=== PATIENT | male | born 2000 | race Caucasian/White ===

== ENCOUNTER 2020-04-27 18:58 | Outpatient (REF) | payer OTHER, SELFPAY ==
[2020-04-27 23:36] LABS: ALT 29 U/L (16-63); AST 18 U/L (15-37); Albumin 5.3 g/dL (3.4-5.0); Anion Gap 11.2 mmol/L (3-11); BUN 9 mg/dL (7-18); Bilirubin, Total 0.4 mg/dL (0.2-1.0); CO2 26.8 mmol/L (21.0-32.0); CREATININE 0.72 mg/dL (0.70-1.30); Calcium 10.2 mg/dL (8.5-10.1); Calculated LDL 101 mg/dL (<100); Chloride 100 mmol/L (98-107); Cholesterol 172 mg/dL (<200); Glucose 86 mg/dL (74-106); HDL Cholesterol 54 mg/dL (40-60); Sodium 138 mmol/L (136-145); Triglyceride 87 mg/dL (<150)
[2020-04-28 00:06] LABS: Alkaline Phosphatase 78 U/L (46-116)
[2020-04-30 09:53] LABS: HBs Antibody, Quant 881.1 mIU/mL (See Note); Hepatitis B Surface Ab Positive (See Note)
[2020-04-30 10:35] LABS: HIV-1/2 Ag & Ab Screen Negative (Negative)
[2020-04-30 11:29] LABS: Hepatitis A Antibody IgM Negative (Negative); Hepatitis B Core Antibody Negative (Negative); Hepatitis B surface Ag Negative (Negative); Hepatitis C Ab w Rflx HCV PCR Negative (Negative)
[2020-04-30 14:07] LABS: Chlamydia Result Negative (Negative); GC Result Negative (Negative)
== END 2020-04-27 19:18 ==
LOC: NCHCN 18:58
PROVIDERS: PCP Nurse Practitioner Family; Visit Provider Nurse Practitioner Family
DX: R53.83 Other fatigue (principal); Z11.3 Encounter for screening for infections with a predominantly sexual mode of transmission; Z11.59 Encounter for screening for other viral diseases; Z11.4 Encounter for screening for human immunodeficiency virus [HIV]
CPT/HCPCS: 80053; 80061; 86704; 86706; 86709; 86803; 87340; 87389; 87491; 87591

== ENCOUNTER 2020-06-05 01:30 | Outpatient (CLI) | payer OTHER, SELFPAY ==
--- NOTE | 2020-06-05 | DI.US_ITS ---
APPROVED REPORT EXAM: Comprehensive 2D, Doppler, and color-flow Echocardiogram Patient Location: Out-Patient Tooth Cutter Contact Wheel: Deisy Michaels RDCS (AE) Indications: Family H/O Early IA Other Information Study Quality: Adequate Conclusion Left Ventricle : The left ventricle is normal size. The left ventricular systolic function is normal. The left ventricular ejection fraction is within the normal range. There is normal left ventricular wall thickness. There is normal LV segmental wall motion. The left ventricular diastolic function is normal. LVEF is 61%. Right Ventricle : The right ventricle is normal size. The right ventricular systolic function is norm al. The RVSP is 18.9 mmHg. Atria : The left atrium size is normal. The right atrium size is normal. Valves: There are no hemodynamically significant valvular lesions. Great Vessels : The aortic root is normal in size. The ascending aorta is normal in size. Aortic arch is normal in caliber. IVC is normal in size and collapses >50% with inspiration. Please see remainder of study for further details. Wall motion Left Ventricle The left ventricle is normal size. The left ventricular systolic function is normal. The left ventric ular ejection fraction is within the normal range. There is normal left ventricular wall thickness. T here is normal LV segmental wall motion. The left ventricular diastolic function is normal. There is no ventricular septal defect visualized. LVEF is 61%. Right Ventricle The right ventricle is normal size. The right ventricular systolic function is normal. The RVSP is 18 .9 mmHg. Atria The left atrium size is normal. The right atrium size is normal. The interatrial septum is intact wit h no evidence for an atrial septal defect. Aortic Valve The aortic valve is normal in structure. Aortic valve is trileaflet. There is no aortic valvular sten osis. No aortic regurgitation is present. Mitral Valve The mitral valve is normal in structure. No evidence of mitral valve stenosis. Trace mitral regurgita tion. Tricuspid Valve The tricuspid valve is normal in structure. There is no tricuspid valve stenosis. Trace tricuspid reg urgitation. Pulmonic Valve The pulmonary valve is normal in structure. There is no pulmonic valvular stenosis. There is no pulmo rina valvular regurgitation. Great Vessels The aortic root is normal in size. The ascending aorta is normal in size. Aortic arch is normal in ca liber. IVC is normal in size and collapses >50% with inspiration. Pericardium There is no pericardial effusion. 2D Dimensions IVSD d PLAX 0.73 cm M: 0.6-1.2 LV Vol A2C d MOD 128.0 mL LVPW d PLAX 0.79 cm M: 0.6 - 1.2 LV Vol A4C d MOD 105.5 mL LVID d PLAX 4.48 cm M: 4.2 - 5.8 LA vol/ BSA A2C s A-L 8.0 mL/m2 LVDs 2.85 cm M: 2.5 - 4.0 LA vol/ BSA A4C s A-L 15.1 mL/m2 Ao Root d 2.49 cm M: 3.1 - 3.7 LA Vol/ BSA Biplane s A-L 12.1 mL/m2 RA Area A4C 14.52 cm2 LA Area A4C s MOD 11.93 cm2 RA Vol/ BSA A4C s A-L 22.4 mL/m2 LA Area A2C s MOD 7.89 cm2 Ao Asc Diam d 2.85 cm M: 2.6 - 3.4 LV EF A4C MOD 61.4 % LV EF Teichholz 65.0 % LV EF A2C MOD 61.2 % LVEF (Anaya's) 60.18 % M: 52 - 72 LV EF Biplane MOD 60.2 % LV Volume 93.85 mL M: 62 - 150 SV 72.64 mL LV Volume Index 52.13 mL/m2 M: 34 - 74 SV Index 40.31 mL/m2 LV Vol Biplane MOD 120.7 mL FS 35.40 % M-Mode TAPSE 2.26 cm (M/F) >1.7 LV Diastology MV E' medial 0.109 (>0.07 m/s) E/A Ratio 1.6 LV E/e MED 6.00 (<14) MV E Vmax 0.65 (0.4-1.3 m/s) MV E' lateral 0.193 (>0.1 m/s) MV A Vmax 0.40 (0.4-1.3 m/s) LV E/e LAT 3.35 (<14) MV E/A Ratio 1.47 MV E/E' medial 6.01 MV E/E' lateral 3.38 Aortic Valve LVOT Area 3.63 cm2 AoV Area Vmax 3.62 cm2 LVOT Vmax 0.89 m/s AoV Area/ BSA (Vmax) 2.01 cm2/m2 LVOT Mean Chris. 0.54 m/s ENMANUEL Mean Chris. 2.87 cm2 LVOT Peak Grad 3.1 mmHg ENMANUEL Mean Chris. Index 1.60 cm2/m2 LVOT Mean Grad 1.4 mmHg LVOT VTI 0.182 m LVOT Diam s 2.10 cm AoV Vmax 0.89 m/s Velocity Ratio 1.00 AoV Mean Chris. 0.68 m/s AoV Peak Grad 3.1 mmHg LVOT SV 66.03 mL AoV Mean Grad 2.0 mmHg AoV VTI 0.188 m AoV Area VTI 3.52 cm2 AoV Area/ BSA (VTI) 1.95 cm/m2 Mitral Valve MV DT 144 (160-240 msec) MV PHT 42 msec MV Area PHT 5.28 cm2 Pulmonary Valve PV Vmax 0.80 (0.5-1.5 m/s) RVOT Peak Gr. 1.50 mmHg PV Peak Grad 2.6 mmHg RVOT Mean Gr. 0.85 mmHg PV Mean Grad 1.3 mmHg RVOT VTI 0.141 m PV VTI 0.177 m RVOT Vmax 0.61 m/s Tricuspid Valve TR Peak Grad 15.9 mmHg TR Vmax 2.00 m/s RA Pressure 3.00 mmHg RVSP (TR) 18.9 mmHg
== END 2020-06-05 01:50 ==
PROVIDERS: PCP Nurse Practitioner Family; Visit Provider Nurse Practitioner Family
DX: Z82.49 Family history of ischemic heart disease and other diseases of the circulatory system (principal)
CPT/HCPCS: 93306

== ENCOUNTER 2021-01-16 13:41 | Outpatient (REF) | payer OTHER, SELFPAY ==
[2021-01-18 15:55] LABS: Chlamydia Result Negative (Negative)
[2021-01-18 17:10] LABS: GC Result Positive (Negative)
== END 2021-01-16 13:42 | disposition home or self-care (01) ==
LOC: NCHCN 13:41
PROVIDERS: PCP Nurse Practitioner Family; Visit Provider Family Medicine
DX: Z20.2 Contact with and (suspected) exposure to infections with a predominantly sexual mode of transmission (principal)
CPT/HCPCS: 87491; 87591

== ENCOUNTER 2021-01-18 13:55 | Outpatient (REF) | payer OTHER, SELFPAY ==
[2021-01-18 16:31] LABS: HCT 48.4 % (40.0-50.0); MCH 29.9 pg (27.0-33.0); MCHC 33.1 % (32.0-36.0); MCV 90.3 fL (80-95); MPV 10.1 fL (8.0-11.0); Platelet Count 235 10^3/uL (130-400); RBC 5.36 10^6/uL (4.36-5.78); RDW 11.9 % (11.8-14.1); RDW-SD 39.2 fL; WBC 5.28 10^3/uL (4.4-10.8)
[2021-01-18 16:55] LABS: TSH (W/Ref FT4) 0.75 uIU/mL (0.36-3.74)
[2021-01-21 10:25] LABS: Hepatitis B Surface Ag Negative (Negative)
[2021-01-21 11:00] LABS: Hep B Core Antibody Negative (Negative)
[2021-01-21 11:05] LABS: HIV-1/2 Ag & Ab Screen Negative (Negative)
[2021-01-21 11:13] LABS: Hepatitis C Ab w Rflx HCV PCR Negative (Negative)
[2021-01-21 11:55] LABS: Syphilis Serology (RPR) Negative (Negative)
== END 2021-01-18 13:56 | disposition home or self-care (01) ==
LOC: NCHCN 13:55
PROVIDERS: PCP Nurse Practitioner Family; Visit Provider Family Medicine
DX: R53.83 Other fatigue (principal); Z20.2 Contact with and (suspected) exposure to infections with a predominantly sexual mode of transmission; Z11.59 Encounter for screening for other viral diseases; Z11.4 Encounter for screening for human immunodeficiency virus [HIV]
CPT/HCPCS: 85027; 86704; 86803; 87340; 87389; 84443; 86592

== ENCOUNTER 2021-04-12 15:03 | Outpatient (REF) | payer OTHER, SELFPAY ==
[2021-04-15 15:25] LABS: Chlamydia Result Negative (Negative)
[2021-04-15 15:45] LABS: GC Result Positive (Negative)
== END 2021-04-12 15:04 | disposition home or self-care (01) ==
LOC: NCHCN 15:03
PROVIDERS: PCP Nurse Practitioner Family; Visit Provider Family Medicine
DX: N34.2 Other urethritis (principal); Z72.52 High risk homosexual behavior; Z86.19 Personal history of other infectious and parasitic diseases
CPT/HCPCS: 87491; 87591

== ENCOUNTER 2021-05-10 13:28 | Outpatient (CLI) | payer OTHER, SELFPAY ==
[2021-05-10 14:33] LABS: CREATININE 0.8 mg/dL (0.70-1.30)
[2021-05-13 11:19] LABS: HIV-1/2 Ag & Ab Screen Negative (Negative)
[2021-05-14 11:38] LABS: Syphilis Serology (RPR) Negative (Negative)
== END 2021-05-10 13:29 | disposition home or self-care (01) ==
LOC: LBO 13:29
PROVIDERS: PCP Nurse Practitioner Family; Visit Provider Family Medicine
DX: Z20.2 Contact with and (suspected) exposure to infections with a predominantly sexual mode of transmission (principal); Z11.4 Encounter for screening for human immunodeficiency virus [HIV]; Z51.81 Encounter for therapeutic drug level monitoring
CPT/HCPCS: 36415; 87389; 82565; 86592

== ENCOUNTER 2021-05-10 19:27 | Outpatient (REF) | payer OTHER, SELFPAY ==
[2021-05-13 14:41] LABS: Chlamydia Result Negative (Negative); GC Result Negative (Negative)
== END 2021-05-10 19:28 | disposition home or self-care (01) ==
LOC: LBN 19:27
PROVIDERS: PCP Nurse Practitioner Family; Visit Provider Family Medicine
DX: Z20.2 Contact with and (suspected) exposure to infections with a predominantly sexual mode of transmission (principal)
CPT/HCPCS: 87491; 87591

== ENCOUNTER 2021-08-23 15:16 | Outpatient (REF) | payer OTHER, SELFPAY ==
[2021-08-26 10:31] LABS: Syphilis Serology (RPR) Negative (Negative)
[2021-08-26 10:32] LABS: HIV-1/2 Ag & Ab Screen Negative (Negative)
[2021-08-26 15:07] LABS: Chlamydia Result Negative (Negative); GC Result Negative (Negative)
== END 2021-08-23 15:17 | disposition home or self-care (01) ==
LOC: NCHCN 15:16
PROVIDERS: PCP Nurse Practitioner Family; Visit Provider Family Medicine
DX: Z72.52 High risk homosexual behavior (principal); Z11.4 Encounter for screening for human immunodeficiency virus [HIV]; Z11.3 Encounter for screening for infections with a predominantly sexual mode of transmission
CPT/HCPCS: 87389; 87491; 87591; 86592

== ENCOUNTER 2021-10-25 18:48 | Outpatient (REF) | payer OTHER, SELFPAY ==
[2021-10-28 11:17] LABS: Syphilis Serology (RPR) Negative (Negative)
[2021-10-28 11:51] LABS: HIV-1/2 Ag & Ab Screen Negative (Negative)
[2021-10-28 15:33] LABS: Chlamydia Result Negative (Negative); GC Result Negative (Negative)
== END 2021-10-25 18:49 | disposition home or self-care (01) ==
LOC: NCHCN 18:48
PROVIDERS: PCP Nurse Practitioner Family; Visit Provider Family Medicine
DX: Z20.2 Contact with and (suspected) exposure to infections with a predominantly sexual mode of transmission (principal); Z72.52 High risk homosexual behavior
CPT/HCPCS: 87389; 87491; 87591; 86592

== ENCOUNTER 2022-01-21 18:24 | Outpatient (REF) | payer OTHER, SELFPAY ==
[2022-01-23 09:46] LABS: Hepatitis C Ab w Rflx HCV PCR Negative (Negative)
[2022-01-23 10:11] LABS: HIV-1/2 Ag & Ab Screen Negative (Negative)
[2022-01-23 11:36] LABS: Syphilis Serology (RPR) Negative (Negative)
== END 2022-01-21 18:25 | disposition home or self-care (01) ==
LOC: NCHCN 18:24
PROVIDERS: PCP Nurse Practitioner Family; Visit Provider Family Medicine
DX: Z72.52 High risk homosexual behavior (principal); Z11.4 Encounter for screening for human immunodeficiency virus [HIV]; Z11.59 Encounter for screening for other viral diseases
CPT/HCPCS: 86803; 87389; 86592

== ENCOUNTER 2022-04-04 14:50 | Emergency (ER) | payer OTHER, SELFPAY ==
[2022-04-04 15:07] VITALS: BP 164/87; PULSE 103; RESP 14; TEMP 36.9; O2SAT 99
--- NOTE | 2022-04-04 15:24 | ED.GENADUL_ITS ---
Discharge Plan Disposition Patient Disposition: HOME Condition: Good Discharge Details Clinical Impression: Contusion of head, Abrasion head, Concussion Primary Care Provider: Patrick Hernandez ED Provider: Lisa Mauricio Home Meds and New Rx's Prescriptions: Continued emtricitabine-tenofovir (TDF) 200-300 mg tablet 1 tab PO DAILY Label Comments: TAKE ONE TABLET BY MOUTH EVERY DAY Discharge Instructions Instructions: Concussion (ED), Head Injury (ED) Additional Instructions: Your exam is reassuring here today. Has discussed, no evidence of neurologic deficit to suggest bleeding in your head or skull fracture. Your exam is much more concerning for contusion with a small abrasion to discuss. You may also have suffered a mild concussion. Please encourage hydration. You may use Tylenol and/or ibuprofen as needed for discomfort. Please encourage rest and avoid significant brain stimulation such as screens, exercise, until symptoms have improved. Please follow-up with primary care in the next 1 to 2 weeks for reevaluation. If you develop any new or worsening symptoms please seek care urgently once again. Referrals: Patrick Hernandez, [employer] [Primary Care Provider] - Discharge Data Discharge Date/Time-TO BE ENTERED AT DEPARTURE: 04/04/22 17:19 Medical Decision Making Patient is a pleasant 21-year-old male, accompanied by his mother, with chief complaint of head injury. He reports that 2 hours ago he was closing a hatchback and forgot that there was a slight crack on the back and accidentally struck himself in the head. Noted a linear area of swelling to the left side of the forehead. Headache is mild currently. Denies any visual change, no nausea or vomiting, no weakness, no sensory deficits. Denies any neck pain or trauma elsewhere since the time of the injury. He was initially endorsing some confusion but this seems to have subsided. On exam, patient appears nontoxic. He has a linear area of ecchymotic/abrasion to left side of forehead. No evidence of skull fracture. Neurologic exam is intact. No c-spine tenderness, full ROM. Mechanism was not signficant. He has no evidence of ICH or skull fx. Advised contusion. With his report of mild, limited confusion, may have mild concussion. We discussed imaging but I do not see indication for this currently. He lives with friends, mom will bring him home. He is able to return if he develops new/worsening symptoms. We discussed concussion recommendations, return precauti ons. All of his quesions and concerns were addressed, they are in agreement with thisplan. HPI General Date/Time Provider Initiated Documentation: 04/04/22 15:24 . Limitations to Documentation: no limitations . Information obtained by: patient, family (mom) and RN notes reviewed . History of Present Illness 21 year old M presents to the emergency department with the chief complaint of contusion to scalp/forehead, described as mild, with intensity rated at 1. Quality is described as aching, and is localized to the head. Patient reports no radiation. Patient started experiencing this hour(s) and it has been constant (pain has improved). No relieving factors improve symptom(s), No exacerbating factors reported . Patient notes no other symptoms.. Patient did receive the following treatments prior to arrival, none Related Data Home Medications Medication Instructions Recorded Confirmed emtricitabine 200 mg-tenofovir 1 tab PO DAILY 04/04/22 04/04/22 disoproxil fumarate 300 mg tablet Allergies Allergy/AdvReac Type Severity Reaction Status Date / Time amoxicillin Allergy Mild Skin Rash Unverified 04/04/22 15:10 General Stated Complaint: HeadInjury WAN: 4 Review of Systems Constitutional Constitutional: Reports as per HPI, Reports fatigue and Denies weakness Eyes Eyes: Reports as per HPI, Denies blurry vision and Denies change in vision ENT Ears, Nose, Mouth, and Throat: Denies vertigo and Denies neck pain Cardiovascular Cardiovascular: Reports as per HPI, Denies chest pain, Denies lightheadedness, Denies radiating jaw, neck or arm pain and Denies dyspnea Respiratory Respiratory: Reports as per HPI, Denies chest congestion, Denies cough and Denies dyspnea Gastrointestinal Gastrointestinal: Reports as per HPI, Denies abdominal pain, Denies change in bowel habits, Denies nausea and Denies vomiting Musculoskeletal Musculoskeletal: Reports as per HPI, Denies back pain, Denies myalgias, Denies muscle cramps, Denies neck pain and Denies numbness Integumentary/Breasts Skin/Breast: Reports as per HPI and Denies rash Neurologic Neurologic: Reports as per HPI, Denies abnormal movements, Denies abnormal speech, Denies behavioral changes, Denies confusion, Denies vertigo, Denies localized weakness, Denies numbness, Denies sensory deficit and Denies weakness Psychiatric Psychiatric: Denies behavioral changes and Denies confusion Endocrine Endocrine: Reports fatigue PFSH All Active Problems (Updated 04/04/22 @ 17:02 by EDIL Mccarty) Contusion of head (Acute) Abrasion head (Acute) Concussion (Acute) Anxiety (Acute 04/27/13) Medical History (Updated 04/04/22 @ 17:02 by EDIL Mccarty) Eczema Smoker in home dad, outside Surgical History (Updated 06/23/18 @ 14:33 by [facility]) Appendectomy Arthroplasty of knee Circumcision Family History Mother No problems noted. Father Substance abuse ETOH grandparent Essential hypertension Heart disease Hyperlipidemia Neoplasm Other Bleeding disorder Social History Smoking/Tobacco Use Status: Current every day Tobacco Type: cigarettes Smoking risk assessment performed?: Yes Alcohol Intake: current Alcohol Intake frequency: a few times a week Alcohol type: beer, wine and hard liquor Drug use: Occasionally Substance use type: marijuana Do you feel safe at home: Yes Do you feel safe in your relationship?: Yes Exam Const General: cooperative, healthy appearing, comfortable, no acute distress, well developed and well groomed Nutritional Appearance: average body habitus and well nourished Orientation: alert, awake and oriented x3 [facility] Head: normal to inspection, no palpable skull fracture, normocephalic, no Morales's sign, no lacerations, no occipital foramen tenderness, no palpable skull fracture, no raccoon eyes and No periorbital ecchymosis Head images: 1. superficial area of ecchymosis/abrasion. No significant swelling, no full break in skin. No palpable skull fracture Ears: hearing grossly normal bilaterally, external ears normal and TM's normal bilaterally General nose exam: external nose normal Mouth: oral mucosae normal and moist mucous membranes Throat: posterior oropharynx normal Eyes General: appearance normal, both eyes and all related structures Alignment and Position: alignment normal Periorbital: periorbital findings normal Eyelids: eyelids normal Sclera: sclerae normal Cornea: corneas normal Pupils: PERRL EOM: EOM intact bilaterally Neck Neck: normal visual inspection and full ROM Resp Effort & Inspection: normal respiratory effort, able to speak in complete sentences and no respiratory distress Auscultation: clear to auscultation bilaterally, no rales, no rhonchi and no wheezes Cardio Rate: regular rate Rhythm: regular rhythm Heart Sounds: S1 normal and S2 normal GI Inspection: normal to inspection and non-distended Palpation: soft, no hepatosplenomegaly, not firm, no guarding, not rigid and nontender Percussion: normal to percussion Auscultation: normal bowel sounds Back/Spine/Pelvis Cervical Spine: normal cervical lordosis, cervical ROM normal, No cervical muscular tenderness, No pain with cervical ROM, No cervical spasm, No cervical spinal tenderness and No step off deformity Skin General skin exam: ecchymosis Neuro General: patient alert, patient awake and patient oriented x3 Cranial Nerves: CN's II-XI intact bilaterally Cognition: normal cognition Speech: speech normal Gait: normal gait Motor: muscle tone normal throughout, strength 5/5 throughout, no pronator drift, no movement abnormalities noted and no fasciculations Sensory Exam: no sensory deficits noted Coordination: fsoosf-pr-[id number] test normal, ydhq-[id number] test normal, Romberg test normal, tandem gait normal, Does not sway with eyes open and rapid alternating movement UE normal Extrem General: normal to inspection, capillary refill normal, no pedal edema and no calf tenderness Psych Appearance: grossly normal and well kempt Mental Status: mental status grossly normal Speech and Movement: speech and movement normal Course Vital Signs Vital signs: Vital Signs Temperature 36.9 C 04/04/22 15:07 Pulse 103 H 04/04/22 15:07 Respiratory Rate 14 04/04/22 15:07 Blood Pressure 164/87 H 04/04/22 15:07 Pulse Oximetry 99 04/04/22 15:07 Temperature 36.9 C 04/04/22 15:07 Temperature Source Temporal Artery Scan 04/04/22 15:07 Pulse 103 H 04/04/22 15:07 Respiratory Rate 14 04/04/22 15:07 Respiratory Effort Non-Labored 04/04/22 15:11 Respiratory Depth Normal 04/04/22 15:11 Respiratory Pattern Normal 04/04/22 15:11 Blood Pressure 164/87 H 04/04/22 15:07 Blood Pressure Position Sitting 04/04/22 15:07 Pulse Oximetry 99 04/04/22 15:07 Oxygen Delivery Method Room Air 04/04/22 15:07 Oxygen Flow Rate 0 04/04/22 15:07 Pain Level 0 04/04/22 15:07 PAWSS Have you Been Recently Intoxicated or Drunk Within the Last 30 days?: Yes Have you Ever Experienced Previous Episodes of Alcohol Withdrawal?: No Have you ever Experienced Withdrawal Seizures?: No Have you ever Experienced Delirium Tremens(DT)s?: No Have you ever undergone Alcohol Rehabilitation Treatment (i.e, inpt ot outpatient treatment programs)?: No Have you ever Experienced Blackouts?: No Have you ever Combined Alcohol with other Downers within the last 90 days?: No Have you ever Combined Alcohol with any other Substance of Abuse during the last 90 days?: No Positive Blood Alcohol level on Presentation? [PCS.BAL]: No Evidence of Increased Autonomic Activity (i.e. HR>120, tremor, sweating, agitation, nausea)?: No Result: 1
--- NOTE | 2022-04-04 16:26 | PDOC.ERCMPRO ---
- If Service Date Differs Date of service: 04/04/22 Time of Service: 16:26 Care Management Progress Note SBIRT Screen: positive for alcohol (AUDIT 24), drugs (DAST 5) includes cannabis LSD Aderall and Psylocibin, nicotine, Anxiety (ISABEL 15) and depression (PHQ-9: 10). Pt reports he has been in therapy until January, when his therapist left, and is interested in getting back into therapy. Pt was encouraged to seek tx and supplied with local contact numbers for counseling services. Pt does not report and SI and agrees to follow up call with SBIRT next week for status check.
== END 2022-04-04 17:19 | disposition home or self-care (01) ==
PROVIDERS: Emergency Provider Physician Assistant; PCP Nurse Practitioner Family
DX: S00.93XA Contusion of unspecified part of head, initial encounter (principal); S06.0X0A Concussion without loss of consciousness, initial encounter; F17.210 Nicotine dependence, cigarettes, uncomplicated; W22.8XXA Striking against or struck by other objects, initial encounter
CPT/HCPCS: 99281; 99282

== ENCOUNTER 2023-02-09 15:12 | Outpatient (REF) | payer OTHER, SELFPAY ==
[2023-02-09 17:01] LABS: Bilirubin Negative (Negative); Blood Negative (Negative); Clarity Clear (Clear); Glucose Negative (Negative); Ketones Negative (Negative); Leukocyte Esterase Negative (Negative); Nitrite Negative (Negative); Specific Gravity 1.015 (1.005-1.025); Urobilinogen 0.2 mg/dL (Up to 0.2); pH 8.5 (5-8)
[2023-02-11 10:09] LABS: Hepatitis C Ab w Rflx HCV PCR Negative (Negative)
[2023-02-11 11:25] LABS: Syphilis Serology (RPR) Negative (Negative)
[2023-02-11 12:57] LABS: HIV-1/2 Ag & Ab Screen Reactive (Negative)
[2023-02-11 15:36] LABS: GC Result Negative (Negative)
[2023-02-11 16:02] LABS: Chlamydia Result Positive (Negative)
[2023-02-13 09:51] LABS: HIV 1 Ab Diff Positive (Negative); HIV 1 Band(s) See Comments
[2023-02-13 09:52] LABS: HIV 2 Ab Diff Negative (Negative)
== END 2023-02-09 15:13 | disposition home or self-care (01) ==
LOC: NCHCN 15:12
PROVIDERS: PCP Family Medicine; Visit Provider Family Medicine
DX: Z20.2 Contact with and (suspected) exposure to infections with a predominantly sexual mode of transmission (principal); Z72.52 High risk homosexual behavior; Z11.4 Encounter for screening for human immunodeficiency virus [HIV]; Z11.59 Encounter for screening for other viral diseases; R30.0 Dysuria
CPT/HCPCS: 86701; 86702; 86803; 87389; 87491; 87591; 81003; 86592

== ENCOUNTER 2023-02-16 13:50 | Outpatient (CLI) | payer OTHER, SELFPAY ==
[2023-02-16 12:43] LABS: Abs Immature Grans 0.01 10^3/uL (0.0-0.06); Absolute Basophil Count 0.04 10^3/uL (0.0-0.2); Absolute Eosinophil Count 0.05 10^3/uL (0.0-0.7); Absolute Lymphocyte Count 1.48 10^3/uL (1.2-3.4); Absolute Monocyte Count 0.29 10^3/uL (0.1-0.8); Absolute Neutrophil Count 2.88 10^3/uL (1.2-6.7); Basophils % 0.8; Eosinophils % 1.1; HCT 47.3 % (40.0-50.0); HGB 16.5 g/dL (13.5-17.5); Immature Grans % 0.2; Lymphocytes % 31.2; MCHC 34.9 % (32.0-36.0); MCV 89 fL (80-95); MPV 9.3 fL (8.0-11.0); Monocytes % 6.1; Neutrophils % 60.6; Platelet Count 214 10^3/uL (130-400); RBC 5.32 10^6/uL (4.36-5.78); RDW 12.4 % (11.8-14.1); RDW-SD 40.6 fL; WBC 4.75 10^3/uL (4.4-10.8)
[2023-02-16 13:25] LABS: ALT 20 U/L (16-63); AST 15 U/L (15-37); Albumin 4.8 g/dL (3.4-5.0); Alkaline Phosphatase 61 U/L (46-116); Anion Gap 7.2 mmol/L (3-11); BUN 7 mg/dL (7-18); Bilirubin, Total 0.7 mg/dL (0.2-1.0); CO2 29.8 mmol/L (21.0-32.0); CREATININE 0.9 mg/dL (0.70-1.30); Calcium 9.6 mg/dL (8.5-10.1); Chloride 101 mmol/L (98-107); Estimated GFR 123.84 (mL/min/1.73m2); Glucose 97 mg/dL (74-106); Potassium 3.7 mmol/L (3.5-5.1); Sodium 138 mmol/L (136-145); Total Protein 8.5 g/dL (6.4-8.2)
[2023-02-17 09:51] LABS: HBs Antibody, Quant >1000.0 mIU/mL (See Note); Hepatitis B Surface Ab Positive (See Note)
[2023-02-17 10:06] LABS: Hepatitis B Surface Ag Negative (Negative)
[2023-02-17 12:05] LABS: Hep A Total Ab w Rflx IgM Positive (Negative)
[2023-02-17 13:07] LABS: Hep A Antibody IgM Negative (Negative)
[2023-02-17 16:32] LABS: 4/8 Ratio 1.27 (>=0.90); Absolute CD3 1282 Cells/uL (840-2669); Absolute CD8 544 Cells/uL (154-1097); CD3 78 % (56-84); CD4 42 % (31-64); CD8 33 % (9-39)
[2023-02-19 12:23] LABS: HIV 1 RNA Qualitative Detected copies/mL (Undetected); HIV 1 RNA Quantitative 216 copies/mL (Undetected)
[2023-02-23 10:27] LABS: Hep B Core Antibody Negative (Negative)
== END 2023-02-16 13:51 | disposition home or self-care (01) ==
LOC: LBO 13:51
PROVIDERS: PCP Family Medicine; Visit Provider Family Medicine
DX: B20 Human immunodeficiency virus [HIV] disease (principal)
CPT/HCPCS: 36415; 80053; 86704; 86706; 86709; 87340; 87536; 85025; 86359; 86360

== ENCOUNTER 2023-05-08 14:05 | Outpatient (REF) | payer OTHER, SELFPAY ==
[2023-05-11 10:39] LABS: Syphilis Serology (RPR) Negative (Negative)
== END 2023-05-08 14:06 | disposition home or self-care (01) ==
LOC: NCHCN 14:05
PROVIDERS: PCP Family Medicine; Visit Provider Family Medicine
DX: Z20.2 Contact with and (suspected) exposure to infections with a predominantly sexual mode of transmission (principal); Z72.52 High risk homosexual behavior
CPT/HCPCS: 86592

== ENCOUNTER 2023-05-15 15:15 | Outpatient (REF) | payer OTHER, SELFPAY ==
[2023-05-17 13:12] LABS: Chlamydia Result Negative (Negative); GC Result Negative (Negative)
== END 2023-05-15 15:16 | disposition home or self-care (01) ==
LOC: NCHCN 15:15
PROVIDERS: PCP Family Medicine; Visit Provider Family Medicine
DX: Z20.2 Contact with and (suspected) exposure to infections with a predominantly sexual mode of transmission (principal); Z72.52 High risk homosexual behavior
CPT/HCPCS: 87491; 87591

== ENCOUNTER 2023-08-13 13:46 | Outpatient (REF) | payer BC, SELFPAY ==
[2023-08-14 14:17] LABS: Chlamydia Result Negative (Negative); GC Result Negative (Negative)
[2023-08-17 11:03] LABS: Syphilis Serology (RPR) Negative (Negative)
== END 2023-08-13 13:47 | disposition home or self-care (01) ==
LOC: NCHCN 13:46
PROVIDERS: PCP Family Medicine; Visit Provider Family Medicine
DX: B20 Human immunodeficiency virus [HIV] disease (principal)
CPT/HCPCS: 87491; 87591; 86592

== ENCOUNTER 2023-11-20 08:59 | Outpatient (REF) | payer BC, SELFPAY ==
[2023-11-23 10:43] LABS: Hepatitis C Ab w Rflx HCV PCR Negative (Negative)
[2023-11-23 11:21] LABS: Syphilis Serology (RPR) Negative (Negative)
[2023-11-23 12:58] LABS: Chlamydia Result Negative (Negative); GC Result Negative (Negative)
== END 2023-11-20 09:00 | disposition home or self-care (01) ==
LOC: NCHCN 08:59
PROVIDERS: PCP Family Medicine; Referring Provider Family Medicine; Visit Provider Family Medicine
DX: B20 Human immunodeficiency virus [HIV] disease (principal)
CPT/HCPCS: 86803; 87491; 87591; 86592

== ENCOUNTER 2024-05-23 19:43 | Outpatient (REF) | payer BC, SELFPAY ==
--- OUTSIDE RECORDS SUMMARY | 2024-05-23 19:47 | XMS_ITS | Encounter Summary ---
Author Organization [facility] Address [address] [place] [address] Care Team Providers Care Community Health Outreach Worker Name Role Phone Quynh Louie MD Primary Care Provider [phone] Reason for Visit * Reason Onset Date Comments Social Work 02/23/2023 Encounter Details Date Type Department Care Team (Late st Contact Info) Description 02/23/2023 Telephone [facility] Disease [address] [address] Denice Babcock Social Work Social History Tobacco Use Types Packs/Day Years Used Date Smoking Tobacco: Never Assessed Sex and Gender Information Value Date Recorded Sex Assigned at Not on file Gender Identity Male 02/18/2023 14:09 EDT Sexual Orientation Not on file documented as of this encounter Miscellaneous Notes * Telephone Encounter - Denice Babcock - 02/23/2023 1154 EDT Called Elo Jolley in [place] to coordinate [facility] paying for the first month of HIV medication.Provided ID#, BIN, RxPCN. Viral will not have a copay and the insurance information was removed. Advised that he will be obtaining different insurance independently for next months fill. documented in this encounter Plan of Treatment Upcoming Encounters Date Type Department Care Team (Late st Contact Info) Description 08/25/2024 13:20 EST Office Visit [facility] Infectious Disease [address] [phone] Benito Arora MD [address] [place] [phone] documented as of this encounter Visit Diagnoses Not on filedocumented in this encounter Care Teams Community Health Outreach Worker Relationship Specialty Start Date End Date Quynh Louie MD [address] [place] [phone] PCP - General 02/18/23 documented as of this encounter
--- OUTSIDE RECORDS SUMMARY | 2024-05-23 19:47 | XMS_ITS | Encounter Summary ---
Author Organization [facility] Address [address] [place] [address] Care Team Providers Care Hydro Station Supervisor Name Role Phone Quynh Louie MD Primary Care Provider [phone] Sancho Hampton Unavailable Unavailable Encounter Details Date Type Department Care Team (Late st Contact Info) Description 03/01/2024 14:45 EDT Phlebotomy Only [facility] Center 2 Phlebotomy [address] [place] [address] Ve Teacher, Acc Phlebotomy Asymptomatic HIV infection, with no history of HIV-related illness ([facility]) Social History Tobacco Use Types Packs/Day Years Used Date Smoking Tobacco: Never Assessed Sex and Gender Information Value Date Recorded Sex Assigned at Not on file Gender Identity Male 02/18/2023 14:09 EDT Sexual Orientation Not on file documented as of this encounter Plan of Treatment Upcoming Encounters Date Type Department Care Team (Late st Contact Info) Description 08/25/2024 13:20 EST Office Visit [facility] Infectious Disease - [facility] [address] [place] [address] Benito Arora MD [address] [place] [phone] documented as of this encounter Procedures Procedure Name Priority Date/Time Associated Diagnosis Comments HIV 1 RNA QUANTITATION Routine 03/01/2024 15:15 EDT Asymptomatic HIV infection, with no history of HIV-related illness ([facility]) T CELL SUBSETS Routine 03/01/2024 15:15 EDT Asymptomatic HIV infection, with no history of HIV-related illness ([facility]) COMPLETE BLOOD COUNT AND DIFFERENTIAL Routine 03/01/2024 15:15 EDT Asymptomatic HIV infection, with no history of HIV-related illness ([facility]) documented in this encounter Results * T CELL SUBSETS (03/01/2024 15:15 EDT) [facility] % CD3 71 56 - 84 % 03/02/2024 16:20 EDT [facility] % CD4 40 31 - 64 % 03/02/2024 16:20 T [facility] % CD8 29 9 - 39 % 03/02/2024 16:20 [facility] Absolute CD3 1,293 840 - 2,669 Cells/uL 03/02/2024 16:20 [facility] Absolute CD4 721 488 - 1,734 Cells/uL 03/02/2024 16:20 [facility] Absolute CD8 534 154 - 1,097 Cells/uL 03/02/2024 16:20 [facility] 4/8 Ratio 1.35 >=0.90 03/02/2024 16:20 [facility] Blood VENOUS BLOOD / Unknown Venipuncture / Unknown 03/01/2024 15:15 EDT 03/01/2024 15:24 EDT Joo Mary MD [facility] IMMUNOLOGY AND S EROLOGY ORDERABLES [facility] [address] [place] [address] * HIV 1 RNA QUANTITATION (03/01/2024 15:15 EDT) [facility] HIV RNA Detection, Qual Undetected Undetected copies/mL 03/03/2024 11:52 EDT [facility] Blood VENOUS BLOOD / Unknown Venipuncture / Unknown 03/01/2024 15:15 EDT 03/01/2024 15:24 EDT Narrative [facility] - 03/03/2024 11:52 EDT The quantification range of this assay is 20 IU/mL to 10,000,000 IU/mL. ??Testing was performed using the Aye HIV test ([employer] with the aye 6800 System. Joo Mary MD [facility] CHEMISTRY & BLOO D GAS ORDERABLES [facility] [address] [place] [address] * (ABNORMAL) COMPLETE BLOOD COUNT AND DIFFERENTIAL (03/01/2024 15:15 EDT) WBC 4.58 4.00 - 10.40 K/cmm 03/01/2024 15:44 EDT [facility] RBC 5.17 4.36 - 5.78 M/cmm 03/01/2024 15:44 T [facility] Hemoglobin 16.5 13.8 - 17.3 g/dL 03/01/2024 15:44 [facility] HCT 47.5 39.5 - 50.2 % 03/01/2024 15:44 [facility] MCV 92 81 - 95 fL 03/01/2024 15:44 [facility] MCH 31.9 27.6 - 33.0 pg 03/01/2024 15:44 [facility] MCHC 34.7 32.8 - 36.4 g/dL 03/01/2024 15:44 T [facility] RDW-CV 12.4 <14.2 % 03/01/2024 15:44 [facility] RDW-SD 41.9 <46.0 fl 03/01/2024 15:44 [facility] PLT 240 141 - 377 K/cmm 03/01/2024 15:44 [facility] MPV 9.3(L) 9.5 - 12.7 fL 03/01/2024 15:44 EDT [facility] % Neutrophils 53.5 % 03/01/2024 15:44 EDT [facility] % Lymphocytes 34.5 % 03/01/2024 15:44 [facility] % Monocytes 9.6 % 03/01/2024 15:44 [facility] % Eosinophils 1.5 % 03/01/2024 15:44 [facility] % Basophils 0.7 % 03/01/2024 15:44 [facility] % Immature Grans 0.2 % 03/01/20 15:44 [facility] Absolute Neutrophils 2.45 2.20 - 8.85 K/cmm 03/01/2024 15:44 [facility] Absolute Lymphocytes 1.58 1.09 - 3.30 K/cmm 03/01/2024 15:44 [facility] Absolute Monocytes 0.44 0.10 - 0.80 K/cmm 03/01/2024 15:44 EDT [facility] Absolute Eosinophils 0.07 0.03 - 0.61 K/cmm 03/01/2024 15:44 [facility] ABS Basophils 0.03 0.01 - 0.11 K/cmm 03/01/2024 15:44 [facility] Absolute Immature Grans 0.01 0.00 - 0.06 K/cmm 03/01/2024 15:44 [facility] Type of Differential: Auto 03/01/2024 15:44 [facility] Blood VENOUS BLOOD / Unknown Venipuncture / Unknown 03/01/2024 15:15 EDT 03/01/2024 15:24 EDT Joo Mary MD [facility] PACKAGES & DNA P ROBE ORDERABLES [facility] [address] [place] [address] documented in this encounter Visit Diagnoses Diagnosis Asymptomatic HIV infection, with no history of HIV-related illness ([facility]) documented in this encounter Care Teams Hydro Station Supervisor Relationship Specialty Start Date End Date Quynh Louie MD [address] [place] [phone] PCP - General 02/18/23 Sancho Hampton, DIGITAL MEDIA SPECIALIST [employer] Infectious Disease 03/31/23 documented as of this encounter
--- OUTSIDE RECORDS SUMMARY | 2024-05-23 19:47 | XMS_ITS | Encounter Summary ---
Author Organization [facility] Address [address] [place] [address] Care Team Providers Care Section Housekeeper Name Role Phone Quynh Louie MD Primary Care Provider [phone] Sancho Hampton Unavailable Unavailable Reason for Visit * Reason Onset Date Comments Medications Refill 05/22/2023 Encounter Details Date Type Department Care Team (Late st Contact Info) Description 05/22/2023 Refill [facility] Infectious Disease [address] [id number] Benito Arora MD [address] [place] [address] [phone] Medications Refill Social History Tobacco Use Types Packs/Day Years Used Date Smoking Tobacco: Never Assessed Sex and Gender Information Value Date Recorded Sex Assigned at Not on file Gender Identity Male 02/18/2023 14:09 EDT Sexual Orientation Not on file documented as of this encounter Ordered Prescriptions Prescription Sig Dispensed Refills Start Date End Da te bictegravir-emtricitabine -tenofovir alafenamide (BIKTARVY) 50-200-25 mg per tablet Take 1 Tablet by mouth daily. 30 Tablet 05/22/2023 06/25/2023 documented in this encounter Plan of Treatment Upcoming Encounters Date Type Department Care Team (Late st Contact Info) Description 08/25/2024 13:20 EST Office Visit [address] [id number] Benito Arora MD [address] [place] [phone] documented as of this encounter Visit Diagnoses Not on filedocumented in this encounter Discontinued Medications Medication Sig Discontinue Reason Start Date End Da te BIKTARVY 50-200-25 mg per tablet TAKE ONE TABLET BY MOUTH EVERY DAY Reorder 04/22/2023 05/22/2023 documented as of this encounter Care Teams Section Housekeeper Relationship Specialty Start Date End Date Quynh Louie MD [address] [place] [address] [phone] PCP - General 02/18/23 Sancho Hampton LICSW Material Distributor Infectious Disease 03/31/23 documented as of this encounter
--- OUTSIDE RECORDS SUMMARY | 2024-05-23 19:47 | XMS_ITS | Encounter Summary ---
Author Organization [facility] Address [address] [place] [address] Care Team Providers Care Picker/Puller Name Role Phone Quynh Louie MD Primary Care Provider [phone] Sancho Hampton Unavailable Unavailable Encounter Details Date Type Department Care Team (Late st Contact Info) Description 05/16/2023 Lab Requisition [facility] Pathology & Laboratory Medicine - [address] [address] Outr Resulting Lab, Provider Social History Tobacco Use Types Packs/Day Years Used Date Smoking Tobacco: Never Assessed Sex and Gender Information Value Date Recorded Sex Assigned at Not on file Gender Identity Male 02/18/2023 14:09 EDT Sexual Orientation Not on file documented as of this encounter Plan of Treatment Upcoming Encounters Date Type Department Care Team (Late st Contact Info) Description 08/25/2024 13:20 EST Office Visit [facility] Infectious Disease [address] [address] Benito Arora MD [address] [place] [phone] documented as of this encounter Procedures Procedure Name Priority Date/Time Associated Diagnosis Comments CHLAMYDIA/N. GONORRHOEAE AMPLIFIED NUCLEIC ACID Routine 05/15/2023 14:25 EDT documented in this encounter Results * CHLAMYDIA/N. GONORRHOEAE AMPLIFIED RNA (05/15/2023 14:25 EDT) Neisseria gonorrhoeae Result Negative Negative 05/17/2023 13:07 EDT [facility] Chlamydia trachomatis Result Negative Negative 05/17/2023 13:07 EDT [facility] Urine URINE / Unknown 05/15/2023 1 4:25 EDT 05/16/2023 21:57 EDT Provider Outr Resulting Lab MICROBIOLOGY - GENERAL ORDERABLES [facility] [address] [place] [address] documented in this encounter Visit Diagnoses Not on filedocumented in this encounter Care Teams Picker/Puller Relationship Specialty Start Date End Date Quynh Louie MD [address] [place] [phone] PCP - General 02/18/23 Sancho Hampton CHARGE AIDE Lay Out Inspector Infectious Disease 03/31/23 documented as of this encounter
--- OUTSIDE RECORDS SUMMARY | 2024-05-23 19:47 | XMS_ITS | Clinical Summary ---
Author Organization [facility] Address [address] [place] [address] Care Team Providers Care Train Operations Manager Name Role Phone Quynh Louie MD Primary Care Provider [phone] Sancho Hampton Unavailable Unavailable Allergies Active Allergy Reactions Criticality Noted Date Comments Penicillins Rash 02/19/2023 Medications Medication Sig Dispensed Refills Start Date End Date Status bictegravir-emtricitab ine-tenofovir alafenamide (BIKTARVY) 50-200-25 mg per tablet Take 1 Tablet by mouth daily. 30 Tablet 5 2023 Active Active Problems Problem Noted Date Diagnosed Date Asymptomatic HIV infection, with no history of HIV-related illness (HCC-CMS) 03/31/2023 Encounters Date Type Department Care Team Description 03/01/2024 14:45 EDT Phlebotomy Only [facility] 2 Phlebotomy [address] [place] [address] Radiation Monitor, [facility] Phlebotomy Asymptomatic HIV infection, with no history of HIV-related illness (HCC-CMS) 03/01/2024 13:40 EDT Office Visit [facility] Infectious Disease - Main [place] [address] [place], [place] [phone] Benito Arora MD Asymptomatic HIV infection, with no history of HIV-related illness ([facility]) (Primary Dx); HIV infection, unspecified symptom status (HCC-CMS) from Last 3 Months Immunizations Name Administration Dates Next Due Covid-19 mRNA Vaccine (MODER NA COVID-19) PF 0.5 ml IM (12 yrs+) 08/23/2021,02/07/2021,01/10/2021 HPV Quadrivalent Recombinant Vaccine 01/19/2015, 09/14/2014,06/15/2014 Hib 03/25/2002, 1,05/05/2001,03/03 Historical DTaP Vaccine, Unspecified ,03/25/2002,07/09/2001,05/05,03/03/2001 Historical Hepatitis A Vacci ne, Unspecified 06/15/2014,06/20/2009,12/15/2008 Historical Hepatitis B Vacci ne, Unspecified 08/23/2021,03/22/2021,02/15/2021,06/24,10/08/2001,07/09/2001 Influenza Vaccine Quad (AFLU JOANNA) PF 0.5 ml IM (3 yrs+) 06/21/2021,07/27/2020,10/07/2017 MENINGOCOCCAL POLYSACCHARIDE VACCINE (MenQUADFI) (GROUPS A, C, Y, W-135) TT CONJUGATE IM 03/01/2024 MMR Vaccine SQ 01/01/2006,12/24/2001 Meningococcal B Vaccine (CURT SERO), Recombinant, OMV IM 04/06/2019 Meningococcal Conjugate (MCV 4) Vaccine (MENACTRA) 4-Valent IM 04/06/2019,01/21/2012 Pneumococcal Conjugate Vacci ne 20-Valent (PCV20) (PREVNAR-20) 0.5 mL IM (6 wks+) 02/19/2023 Pneumococcal Polysaccharide (PPSV23) Vaccine (PNEUMOVAX-23) =>2YO SQ/IM 11/22/2021 Smallpox-Monkeypox Vaccine, Attenuated Vaccinia Virus, Live (JYNNEOS) (PF) 0.5 mL SQ 03/31/2023 Smallpox-monkeypox Vaccine, Attenuated Vaccinia Virus, Live (JYNNEOS) EUA (PF) 0.1 mL intradermal 02/19/2023 Tdap Vaccine =>7YO IM 01/21/2022,01/21/2012 Social History Tobacco Use Types Packs/Day Years Used Date Smoking Tobacco: Never Assessed Sex and Gender Information Value Date Recorded Sex Assigned at Not on file Gender Identity Male 02/18/2023 14:09 EDT Sexual Orientation Not on file Last Filed Vital Signs Vital Sign Reading Time Taken Comments Blood Pressure 143/98 03/01/2024 1346 EDT Pulse 103 03/01/2024 1346 EDT Temperature 37 ??C (98.6 ??F) 03/01/2024 1346 EDT Respiratory Rate - - Oxygen Saturation - - Inhaled Oxygen Concentration - - Weight 74.8 kg (165 lb) 03/01/2024 1346 EDT Height - - Body Mass Index - - Plan of Treatment Upcoming Encounters Date Type Department Care Team (Late st Contact Info) Description 08/25/2024 13:20 EST Office Visit [facility] Infectious Disease - [facility] [address] [place] [address] Benito Arora MD [address] [place] [phone] Health Maintenance Due Date Last Done Comments COVID-19 Vaccine (2022-2 4 season) 2024 08/23/2021, 02/07/2021, 01/10/2021 Hepatitis B Vaccine Completed 08/23/2021, 03/22/2021, 02/15/2021, Additional history exists Hepatitis C Screen Completed 11/20/2023, 0 02/09/2023, 01/21/2022, Additional history exists Procedures Procedure Name Priority Date/Time Associated Diagnosis Comments T CELL SUBSETS Routine 03/01/2024 15:15 EDT Asymptomatic HIV infection, with no history of HIV-related illness ([facility]) HIV 1 RNA QUANTITATION Routine 03/01/2024 15:15 EDT Asymptomatic HIV infection, with no history of HIV-related illness ([facility]) COMPLETE BLOOD COUNT AND DIFFERENTIAL Routine 03/01/2024 15:15 EDT Asymptomatic HIV infection, with no history of HIV-related illness ([facility]) HEPATITIS C AB W REFLEX TO HCV RNA BY PCR Routine 11/20/2023 8:33 EDT from Last 3 Months or Most Recently Relevant to Health Maintenance Results * HIV 1 RNA QUANTITATION (03/01/2024 15:15 EDT) Pathologist [facility] HIV RNA Detection, Qual Undetected Undetected copies/mL 03/03/2024 11:52 EDT [facility] Blood VENOUS BLOOD / Unknown Venipuncture / Unknown 03/01/2024 15:15 EDT 03/01/2024 15:24 EDT [facility] - 03/03/2024 11:52 EDT The quantification range of this assay is 20 IU/mL to 10,000,000 IU/mL. ??Testing was performed using the Aye HIV test ([employer] with the aye GetQuik0 System. Joo Mary MD [facility] [place]MISTRY & BLOO D GAS ORDERABLES [facility] [address] [place] [address] * T CELL SUBSETS (03/01/2024 15:15 EDT) [facility] % CD3 71 56 - 84 % 03/02/2024 16:20 [facility] % CD4 40 31 - 64 % 03/02/2024 16:20 [facility] % CD8 29 9 - 39 % 03/02/2024 16:20 [facility] Absolute CD3 1,293 840 - 2,669 Cells/uL 03/02/2024 16:20 [facility] Absolute CD4 721 488 - 1,734 Cells/uL 03/02/2024 16:20 [facility] Absolute CD8 534 154 - 1,097 Cells/uL 03/02/2024 16:20 [facility] 4/8 Ratio 1.35 >=0.90 03/02/2024 16:20 [facility] Blood VENOUS BLOOD / Unknown Venipuncture / Unknown 03/01/2024 15:15 EDT 03/01/2024 15:24 EDT Joo Mary MD [facility] [place] IMMUNOLOGY AND S EROLOGY ORDERABLES [facility] [address] [place] [address] * (ABNORMAL) COMPLETE BLOOD COUNT AND DIFFERENTIAL (03/01/2024 15:15 EDT) WBC 4.58 4.00 - 10.40 K/cmm 03/01/2024 15:44 EDT [facility] RBC 5.17 4.36 - 5.78 M/cmm 03/01/2024 15:44 [facility] Hemoglobin 16.5 13.8 - 17.3 g/dL 03/01/2024 15:44 [facility] HCT 47.5 39.5 - 50.2 % 03/01/2024 15:44 [facility] MCV 92 81 - 95 fL 03/01/2024 15:44 [facility] MCH 31.9 27.6 - 33.0 pg 03/01/2024 15:44 [facility] MCHC 34.7 32.8 - 36.4 g/dL 03/01/2024 15:44 [facility] RDW-CV 12.4 <14.2 % 03/01/2024 15:44 [facility] RDW-SD 41.9 <46.0 fl 03/01/2024 15:44 [facility] PLT 240 141 - 377 K/cmm 03/01/2024 15:44 [facility] MPV 9.3(L) 9.5 - 12.7 fL 03/01/2024 15:44 [facility] % Neutrophils 53.5 % 03/01/2024 15:44 [facility] % Lymphocytes 34.5 % 03/01/2024 15:44 [facility] % Monocytes 9.6 % 03/01/2024 15:44 [facility] % Eosinophils 1.5 % 03/01/2024 15:44 EDT [facility] % Basophils 0.7 % 03/01/2024 15:44 T [facility] % Immature Grans 0.2 % 03/01/20 15:44 [facility] Absolute Neutrophils 2.45 2.20 - 8.85 K/cmm 03/01/2024 15:44 EDT [facility] Absolute Lymphocytes 1.58 1.09 - 3.30 K/cmm 03/01/2024 15:44 EDT [facility] Absolute Monocytes 0.44 0.10 - 0.80 K/cmm 03/01/2024 15:44 T [facility] Absolute Eosinophils 0.07 0.03 - 0.61 K/cmm 03/01/2024 15:44 T [facility] ABS Basophils 0.03 0.01 - 0.11 K/cmm 03/01/2024 15:44 EDT [facility] Absolute Immature Grans 0.01 0.00 - 0.06 K/cmm 03/01/2024 15:44 EDT [facility] Type of Differential: Auto 03/01/2024 15:44 T [facility] Blood VENOUS BLOOD / Unknown Venipuncture / Unknown 03/01/2024 15:15 EDT 03/01/2024 15:24 EDT Joo Mary MD [facility] [place] PACKAGES & DNA P ROBE ORDERABLES [facility] [address] [place] [address] * HEPATITIS C AB W REFLEX TO HCV RNA BY PCR (11/20/2023 8:33 EDT) Hep C Antibody Negative Negative 11/23/2023 10:38 EDT [facility] Blood VENOUS BLOOD / Unknown 11/20/2023 8:33 EDT 11/21/2023 21:27 EDT Provider Outr Resulting Lab CHEMISTRY & BLOOD GAS ORDERABLES [facility] [address] [place], [place] [address] from Last 3 Months or Most Recently Relevant to Health Maintenance Care Teams Train Operations Manager Relationship Specialty Start Date End Date Quynh Louie MD [address] [phone] PCP - General 02/18/23 Sancho Hampton, [facility] Sheet Tester Infectious Disease 03/31/23
--- OUTSIDE RECORDS SUMMARY | 2024-05-23 19:47 | XMS_ITS | Encounter Summary ---
Author Organization [facility] Address [address] [place] [address] Care Team Providers Care Multi Skilled Operator Name Role Phone Quynh Louie MD Primary Care Provider [phone] Sancho Hampton Unavailable Unavailable Reason for Visit * Reason Comments Follow-up Encounter Details Date Type Department Care Team (Late st Contact Info) Description 06/02/2023 14:40 EDT Office Visit [facility] Infectious Disease - [facility] [address], [place] [address] Benito Arora MD [address] [place] [address] Asymptomatic HIV infection, with no history of HIV-related illness (HCC) (Primary Dx) Social History Tobacco Use Types Packs/Day Years Used Date Smoking Tobacco: Never Assessed Sex and Gender Information Value Date Recorded Sex Assigned at Not on file Gender Identity Male 02/18/2023 14:09 EDT Sexual Orientation Not on file documented as of this encounter Last Filed Vital Signs Vital Sign Reading Time Taken Comments Blood Pressure 142/82 06/02/2023 1434 EDT Pulse 91 06/02/2023 1434 EDT Temperature 36.8 ??C (98.2 ??F) 06/02/2023 1434 EDT Respiratory Rate - - Oxygen Saturation - - Inhaled Oxygen Concentration - - Weight 74.8 kg (165 lb) 06/02/2023 1434 EDT Height - - Body Mass Index - - documented in this encounter Progress Notes * Benito Arora MD - 06/02/2023 1440 EDT Infectious Disease Clinic HIV Clinic Note Date of Service: 06/01/2023 Reason for Follow Up: HIV HPI: Patient is a 22 y/o male w/ HIV diagnosed 02/09/2023 presenting to ID clinic for regular HIV management. He has been on endgjsadsrf-dkjshiweeczhe-hnjpjiceq alafenamide since his diagnosis. His initial diagnosis occurred after a recent chlamydia infection. He has since had negative repeat G/C testing. Today he feels well in his usual state of health. He had a few days of intermittent chills requiring him to wear a sweatshirt and pants when his friends were all in summer clothes. This happened a few times without regular recurrence. No ongoing fevers, night sweats, rigors, weight change, dysphagia, dyspnea, diarrhea, dysuria, rash. PMHx: HIV PSHx: has no past surgical history on file. Family Hx: N/A Social History Tobacco: Y, 6 pack/year history. Not interested in quitting at this time. Alcohol: 15 drinks weekly Recreational Drugs: Marijuana, occasional mushrooms, occasional ecstasy. 3x intranasal cocaine use ever. Born and Raised: [place], [place]. 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 Relationships / living situation: Lives w/ a good friend in the [facility] area. One male sexualpartner at this time who lives time piece repairer in [place]. Sexual: 7 male partners in the past year, 3 in the past 6 months. Practices oral/anal receptive/insertive sex. Animal exposure: Once cat in the home with minimal scratches. No farm animal exposures. Medications Current Outpatient Medications Medication ??? ayosnzpqret-slsakjyqypueo-oakwjlgrh alafenamide (BIKTARVY) 50-200-25 mg per tablet No current facility-administered medications for this visit. Allergies Allergies Allergen Reactions ??? Penicillins Rash Vital Signs There were no vitals taken for this visit. Physical Exam 06/01/2023 15:35 General: In no acute distress. HEENT: No conjunctival icterus or pallor. No oropharyngeal erythema or exudate. Chest: Lungs clear to auscultation. Neck: No cervical lymphadenopathy. CV: Normal rate and regular rhythm. No murmurs. 2+ radial pulses. GI: Abdomen soft, not tender, not distended. Neuro: Alert and oriented x4. Face symmetrical. Moving all extremities spontaneously. Extremities: No lower extremity edema. 2+ pedal pulses. Skin: No rashes or jaundice. Psych: Appropriate mood and affect. Labs 05/15/2023 G/C: Negative 05/08/2023 Syphilis serology: Negative 03/31/2023 HIV VL: Undetected Immunization History Administered Date(s) Administered ??? Covid-19 mRNA Vaccine (MODERNA COVID-19) PF 0.5 ml IM (12 yrs+) 01/10/2021, 02/07/2021, 08/23/2021 ??? HPV Quadrivalent Recombinant Vaccine 06/15/2014, 09/14/2014, 01/19/2015 ??? Hib 03/03/2001, 05/05/2001, 07/09/2001, 03/25/2002 ??? Historical DTaP Vaccine, Unspecified 03/03/2001, 05/05/2001, 07/09/2001, 03/25/2002, 12/20/2004 ??? Historical Hepatitis A Vaccine, Unspecified 12/15/2008, 06/20/2009, 06/15/2014 ??? Historical Hepatitis B Vaccine, Unspecified 07/09/2001, 10/08/2001, 06/24/2002, 02/15/2021, 03/22/2021, 08/23/2021 ??? Influenza Vaccine Quad (AFLURIA) PF 0.5 ml IM (3 yrs+) 10/07/2017, 07/27/2020, 06/21/2021 ??? MMR Vaccine SQ 12/24/2001, 01/01/2006 ??? Meningococcal B Vaccine (BEXSERO), Recombinant, OMV IM 04/06/2019 ??? Meningococcal Conjugate (MCV4) Vaccine (MENACTRA) 4-Valent IM 01/21/2012, 04/06/2019 ??? Pneumococcal Conjugate Vaccine 20-Valent (PCV20) (PREVNAR-20) 0.5 mL IM (18 yrs+) 02/19/2023 ? ? Pneumococcal Polysaccharide (PPSV23) Vaccine (PNEUMOVAX-23) =>2YO SQ/IM 11/22/2021 ??? Smallpox-Monkeypox Vaccine, Attenuated Vaccinia Virus, Live (JYNNEOS) (PF) 0.5 mL SQ 03/31/2023 ??? Smallpox-monkeypox Vaccine, Attenuated Vaccinia Virus, Live (JYNNEOS) EUA (PF) 0.1 mL intradermal 02/19/2023 ? ? Tdap Vaccine =>7YO IM 01/21/2012, 01/21/2022 Assessment and Plan Viral Gutierrez is a 22 y.o. male with a PMHx significant for recent HIV diagnosis managing well on ART. 1. HIV-1 New diagnosis in the setting of chlamydia infection. Non specific chills recently, will test for thyroid function. -Next visit in 3 months: repeat VL, CMP, thyroid test -Current ART: eqqbxrzbfrw-qebnukrtghahc-ttlpiokjz alafenamide HIV Hx: -Diagnosed on: 02/09/2023 -CD4 current: 692 (02/16/2023) -VL current: Undetected -CD4 mekhi: N/A -VL peak: 216 (02/16/2023) -Prior ART: N/A -OI PPx: N/A -Adherence: Good -Sexual activity: Not active -Anal cancer screening: N/A -Safety labs: Lipid panel wnl -G/C: Negative (05/15/2023) -Syphilis Ab: Negative (05/08/2023) -RPR: N/A -Tb: Quant gold negative (02/19/2023) -HAV: total Ab positive (02/16/2023) -HBV: sAb+, cAb-, sAg- (02/16/2023) -HCV: Ab- (02/09/2023) -Dental exam: N/A 2. Health maintenance -Next visit: 3 months -Immunizations needed: N/A -Cholesterol: N/A -Diabetes: N/A -Colonoscopy: N/A -Pap: N/A -Mammogram: N/A Patient was discussed with attending, Dr. Mary. Benito Arora MD 06/01/2023 15:35 Infectious Disease Fellow, PGY-4 [phone] Currently employed: Yes Adherence counseling: Yes Linguistic services: No Patient with HIV (-) partner: Unknown HIV (-) partner tested within the last 12 months: Unknown Partner notification discussed: Yes Social History Social History Tobacco Use Smoking Status Not on file Smokeless Tobacco Not on file Smoking cessation discussed: Yes Gonorrhea and chlamydia testing done in the past year: Yes Oral exam done at this visit: Yes Seen by dentist in the past year. No Referred to dentist at this visit: No Housing: Stable HIV risk reduction counseling: Yes Screened for mental health: Yes Screened for substance abuse: Yes Current substance use (used more than once in the past 12 months): marijuana * Joo Mary MD [facility] - 06/02/2023 9292 EDT ID ATTENDING Otherwise healthy 22 y.o. male with a recent dx of HIV and Chlamydia now feeling well on Biktarvy with undetectable HIV VL in late March. Sole sx is feeling cold sometimes when his friends aren't, butthis is unpredictable and associated with no other sx. Adherence is good. Partner still reluctant to get tested. Had questions about tattooing and he and Dr. Arora discussed U=U. We'll continue Biktarvy, repeat CMP + HIV VL and TSH today and plan to see him back with CMP + HIV VL + STI screens including swabs then. We discussed ways of helping his partner get past his fear of testing. I interviewed and examined the patient and perused the relevant labs, micro, imaging, path and other relevant data independently in the formulation of the plan above, which I reviewed and agree with,with edits as appropriate. documented in this encounter Plan of Treatment Upcoming Encounters Date Type Department Care Team (Late st Contact Info) Description 08/25/2024 13:20 EST Office Visit [facility] Infectious Disease - [facility] [address], [place] [phone] Benito Arora MD [address] [place] [phone] documented as of this encounter Results * TSH (06/02/2023 15:56 EDT) [facility] TSH 0.58 0.47 - 4.68 mIU/L 06/02/2023 17:14 EDT [facility] Blood VENOUS BLOOD / Unknown Venipuncture / Unknown 06/02/2023 15:56 EDT 06/02/2023 16:05 EDT Narrative [facility] - 06/02/2023 17:14 EDT The results of this assay can be falsely lowered due to the consumption of Biotin. Joo Mary MD [facility] CHEMISTRY & BLOO D GAS ORDERABLES Performing Organization Address [facility] Co de Phone Number [facility] [address] [place] [address] * HIV 1 RNA QUANTITATION (06/02/2023 15:56 EDT) [facility] HIV RNA Detection, Qual Undetected Undetected copies/mL 06/04/2023 13:56 EDT [facility] Blood VENOUS BLOOD / Unknown Venipuncture / Unknown 06/02/2023 15:56 EDT 06/02/2023 16:05 EDT Narrative [facility] - 06/04/2023 13:56 EDT The quantification range of this assay is 20 IU/mL to 10,000,000 IU/mL. ??Testing was performed using the Susan HIV test ([employer] with the susan [id number] System. Joo Mary MD [facility] CHEMISTRY & BLOO D GAS ORDERABLES Performing Organization Address [facility] Co de Phone Number [facility] [address] [place] [phone] * (ABNORMAL) COMPREHENSIVE METABOLIC PANEL (CMP) (06/02/2023 15:56 EDT) [facility] Sodium 141 136 - 145 mmol/L 06/02/2023 16:41 EDT [facility] Potassium 4.0 3.5 - 5.0 mmol/L 06/02/2023 16:41 EDT [facility] Chloride 102 96 - 110 mmol/L 06/02/2023 16:41 [facility] CO2 Total 27 22 - 32 mmol/L 06/02/2023 16:41 [facility] Glucose 84 70 - 99 mg/dl 06/02/2023 16:41 [facility] BUN 11 10 - 26 mg/dL 06/02/2023 16:41 [facility] Creatinine 0.76 0.66 - 1.25 mg/dL 06/02/2023 16:41 [facility] eGFR 130 >60 mL/min/1.7 3m2 06/02/2023 16:41 [facility] Total Protein 8.0 6.3 - 8.2 g/dL 06/02/2023 16:41 [facility] Albumin 5.2(H) 3.4 - 4.9 g/dL 06/02/2023 16:41 [facility] Alkaline Phosphatase 50 38 - 126 U/L 06/02/2023 16:41 [facility] AST 23 15 - 46 U/L 06/02/2023 16:41 [facility] ALT 18 <50 U/L 06/02/2023 16:41 [facility] Bilirubin, Total <0.5 <1.4 mg/dL 06/02/20 23 16:41 [facility] Calcium 9.9 8.5 - 10.5 mg/dL 06/02/2023 16:41 [facility] Albumin/Globulin Ratio 1.9 1.0 - 2.5 g/dL 06/02/2023 16:41 [facility] Anion Gap 12 5 - 14 mmol/L 06/02/2023 16:41 [facility] Blood VENOUS BLOOD / Unknown Venipuncture / Unknown 06/02/2023 15:56 EDT 06/02/2023 16:05 EDT Joo Mary MD [facility] CHEMISTRY & BLOO D GAS ORDERABLES [facility] [address] [place] [address] documented in this encounter Visit Diagnoses Diagnosis Asymptomatic HIV infection, with no history of HIV-related illness (HCC)- Primary documented in this encounter Care Teams Multi Skilled Operator Relationship Specialty Start Date End Date Quynh Louie MD [address] [place] [phone] PCP - General 02/18/23 Sancho Hampton, STEPHANIE Legal Compliance Officer Infectious Disease 03/31/23 documented as of this encounter
--- OUTSIDE RECORDS SUMMARY | 2024-05-23 19:47 | XMS_ITS | Encounter Summary ---
Author Organization [facility] Address [address] [place] [address] Care Team Providers Care Marketing Director Name Role Phone Quynh Louie MD Primary Care Provider [phone] Reason for Visit * Reason Comments Medications Refill Encounter Details Date Type Department Care Team (Late st Contact Info) Description 03/23/2023 Refill [facility] Infectious Disease [address] [phone] Scarlet Bolivar NP [address] [facility], [address] [place] [address] Medications Refill Social History Tobacco Use Types Packs/Day Years Used Date Smoking Tobacco: Never Assessed Sex and Gender Information Value Date Recorded Sex Assigned at Not on file Gender Identity Male 02/18/2023 14:09 EDT Sexual Orientation Not on file documented as of this encounter Ordered Prescriptions Prescription Sig Dispensed Refills Start Date End Da te BIKTARVY 50-200-25 mg per tablet TAKE ONE TABLET BY MOUTH EVERY DAY 30 Tablet 03/24/2023 04/22/2023 documented in this encounter Plan of Treatment Upcoming Encounters Date Type Department Care Team (Late st Contact Info) Description 08/25/2024 13:20 EST Office Visit [address] [phone] Benito Arora MD [address] [place] [phone] documented as of this encounter Visit Diagnoses Not on filedocumented in this encounter Discontinued Medications Medication Sig Discontinue Reason Start Date End Da te bictegravir-emtricitabine -tenofovir alafenamide (BIKTARVY) 50-200-25 mg per tablet Take 1 Tablet by mouth daily for 30 days. 02/19/2023 03/24/2023 documented as of this encounter Care Teams Marketing Director Relationship Specialty Start Date End Date Quynh Louie MD [address] [place] [phone] PCP - General 02/18/23 documented as of this encounter
--- OUTSIDE RECORDS SUMMARY | 2024-05-23 19:47 | XMS_ITS | Encounter Summary ---
Author Organization [facility] Address [address] [place] [address] Care Team Providers Care Employee Placement Specialist Name Role Phone Quynh Louie MD Primary Care Provider [phone] Sancho Hampton Unavailable Unavailable Encounter Details Date Type Department Care Team (Late st Contact Info) Description 02/20/2023 Lab Requisition [facility] Pathology & Laboratory Medicine - [address] [address] Outr Resulting Lab, Provider Social History Tobacco [...] Info) Description 08/25/2024 13:20 EST Office Visit [facility] Infectious Disease - [address] [address] Benito Arora MD [address] [place] [phone] documented as of this encounter Procedures Procedure Name Priority Date/Time Associated Diagnosis Comments HEPATITIS B CORE ANTIBODY (TOTAL) Routine 02/16/2023 12:34 EDT documented in this encounter Results * HEPATITIS B CORE ANTIBODY (TOTAL) (02/16/2023 12:34 EDT) Hepatitis B Core Ab, Total Negative Negative 02/23/2023 10:22 EDT [facility] Blood VENOUS BLOOD / Unknown 02/16/2023 12:34 EDT 02/20/2023 19:59 EDT Provider Outr Resulting Lab CHEMISTRY & BLOOD GAS ORDERABLES [facility] [address] [place] [address] documented in this encounter Visit Diagnoses Not on filedocumented in this encounter Care Teams Employee Placement Specialist Relationship Specialty Start Date End Date Quynh Louie MD [address] [place] [phone] PCP - General 02/18/23 Sancho Hampton LICSW Cardiovascular Rn Infectious Disease 03/31/23 documented as of this encounter
--- OUTSIDE RECORDS SUMMARY | 2024-05-23 19:47 | XMS_ITS | Encounter Summary ---
Author Organization [facility] Address [address] [place] [address] Care Team Providers Care Retirement Actuary Name Role Phone Quynh Louie MD Primary Care Provider [phone] Sancho Hampton Unavailable Unavailable Reason for Visit * Reason Comments Follow-up Encounter Details Date Type Department Care Team (Late st Contact Info) Description 03/31/2023 14:00 EDT Nurse Only [facility] Infectious Disease [address] [phone] Nurse, Id, RN HIV infection, unspecified symptom status ([facility]) (Primary Dx) Social History Tobacco Use Types Packs/Day Years Used Date Smoking Tobacco: Never Assessed Sex and Gender Information Value Date Recorded Sex Assigned at Not on file Gender Identity Male 02/18/2023 14:09 EDT Sexual Orientation Not on file documented as of this encounter Progress Notes * Eliana Barfield, RN - 03/31/2023 1400 EDT State supply Mpx administered without difficulty documented in this encounter Plan of Treatment Upcoming Encounters Date Type Department Care Team (Late st Contact Info) Description 08/25/2024 13:20 EST Office Visit [facility] Infectious Disease [facility] [address], [place] [phone] Benito Arora MD [address] [place] [phone] documented as of this encounter Visit Diagnoses Diagnosis HIV infection, unspecified symptom status ([facility])- Primary documented in this encounter Care Teams Retirement Actuary Relationship Specialty Start Date End Date Quynh Louie MD [address] [place] [phone] PCP - General 02/18/23 Sancho Hampton, SHRIMPER Data Specialist Infectious Disease 03/31/23 documented as of this encounter
--- OUTSIDE RECORDS SUMMARY | 2024-05-23 19:47 | XMS_ITS | Referral Summary ---
Author Organization [facility] Address [address] [place] [address] Care Team Providers Care Pack Mule Worker Name Role Phone Quynh Louie MD Primary Care Provider [phone] Sancho Hampton Unavailable Unavailable Encounters Date Type Department Care Team Description 03/01/2024 14:45 EDT Phlebotomy Only [facility] 2 Phlebotomy [address] [place], [place] [id number] Covered Buckle Assembler, Acc Phlebotomy Asymptomatic HIV infection, with no history of HIV-related illness ([facility]) 03/01/2024 13:40 EDT Office Visit [facility] Infectious Disease - [facility] [address] [place], [place] [id number] Benito Arora MD Asymptomatic HIV infection, with no history of HIV-related illness ([facility]) (Primary Dx); HIV infection, unspecified symptom status (HCC-CMS) from Last 3 Months Allergies Active Allergy Reactions Criticality Noted Date Comments Penicillins Rash 02/19/2023 Medications Medication Sig Dispensed Refills Start Date End Date Status bictegravir-emtricitab ine-tenofovir alafenamide (BIKTARVY) 50-200-25 mg per tablet Take 1 Tablet by mouth daily. 30 Tablet 5 2023 Active Active Problems Problem Noted Date Diagnosed Date Asymptomatic HIV infection, with no history of HIV-related illness (HCC-CMS) 03/31/2023 Immunizations Name Administration Dates Next Due Covid-19 [...] Info) Description 08/25/2024 13:20 EST Office Visit [facility] Infectious Disease - [address] [id number] Benito Arora MD [address] [place] [phone] Procedures Procedure Name Priority Date/Time Associated Diagnosis Comments T CELL SUBSETS Routine 03/01/2024 15:15 EDT Asymptomatic HIV infection, with no history of HIV-related illness ([facility]) HIV 1 RNA QUANTITATION Routine 03/01/2024 15:15 EDT Asymptomatic HIV infection, with no history of HIV-related illness ([facility]) COMPLETE BLOOD COUNT AND DIFFERENTIAL Routine 03/01/2024 15:15 EDT Asymptomatic HIV infection, with no history of HIV-related illness ([facility]) HEPATITIS C AB W REFLEX TO HCV RNA BY PCR Routine 11/20/2023 8:33 EDT from Last 3 Months or Most Recently Relevant to Health Maintenance Results * HIV 1 RNA QUANTITATION (03/01/2024 15:15 EDT) HIV RNA Detection, Qual Undetected Undetected copies/mL 03/03/2024 11:52 EDT [facility] Blood VENOUS BLOOD / Unknown Venipuncture / Unknown 03/01/2024 15:15 EDT 03/01/2024 15:24 EDT Narrative [facility] - 03/03/2024 11:52 EDT The quantification range of this assay is 20 IU/mL to 10,000,000 IU/mL. ??Testing was performed using the Aye HIV test ([employer] with the aye 6800 System. Joo Mary MD [facility] CHEMISTRY & BLOO D GAS ORDERABLES Performing Organization Address City/[facility]/ZIP Co de Phone Number [facility] [address] [place] [address] * T CELL SUBSETS (03/01/2024 15:15 EDT) % CD3 71 56 - 84 % 03/02/2024 16:20 EDT [facility] % CD4 40 31 - 64 % 03/02/2024 16:20 EDT [facility] % CD8 29 9 - 39 % 03/02/2024 16:20 EDT [facility] Absolute CD3 1,293 840 - 2,669 Cells/uL 03/02/2024 16:20 EDT [facility] Absolute CD4 721 488 - 1,734 Cells/uL 03/02/2024 16:20 EDT [facility] Absolute CD8 534 154 - 1,097 Cells/uL 03/02/2024 16:20 EDT [facility] 4/8 Ratio 1.35 >=0.90 03/02/2024 16:20 T [facility] Blood VENOUS BLOOD / Unknown Venipuncture / Unknown 03/01/2024 15:15 EDT 03/01/2024 15:24 EDT Joo Mary MD [facility] IMMUNOLOGY AND S EROLOGY ORDERABLES Performing Organization Address City/[facility]/ZIP Co de Phone Number [facility] [address] [place] [address] * (ABNORMAL) COMPLETE BLOOD COUNT AND DIFFERENTIAL (03/01/2024 15:15 EDT) Pathologist [facility] WBC 4.58 4.00 - 10.40 K/cmm 03/01/2024 15:44 [facility] RBC 5.17 4.36 - 5.78 M/cmm 03/01/2024 15:44 [facility] Hemoglobin 16.5 13.8 - 17.3 g/dL 03/01/2024 15:44 [facility] HCT 47.5 39.5 - 50.2 % 03/01/2024 15:44 [facility] MCV 92 81 - 95 fL 03/01/2024 15:44 [facility] MCH 31.9 27.6 - 33.0 pg 03/01/2024 15:44 [facility] MCHC 34.7 32.8 - 36.4 g/dL 03/01/2024 15:44 [facility] RDW-CV 12.4 <14.2 % 03/01/2024 15:44 [facility] RDW-SD 41.9 <46.0 fl 03/01/2024 15:44 [facility] PLT 240 141 - 377 K/cmm 03/01/2024 15:44 [facility] MPV 9.3(L) 9.5 - 12.7 fL 03/01/2024 15:44 [facility] % Neutrophils 53.5 % 03/01/2024 15:44 [facility] % Lymphocytes 34.5 % 03/01/2024 15:44 [facility] % Monocytes 9.6 % 03/01/2024 15:44 [facility] % Eosinophils 1.5 % 03/01/2024 15:44 [facility] % Basophils 0.7 % 03/01/2024 15:44 [facility] % Immature Grans 0.2 % 03/01/20 15:44 [facility] Absolute Neutrophils 2.45 2.20 - 8.85 K/cmm 03/01/2024 15:44 [facility] Absolute Lymphocytes 1.58 1.09 - 3.30 K/cmm 03/01/2024 15:44 EDT [facility] Absolute Monocytes 0.44 0.10 - 0.80 K/cmm 03/01/2024 15:44 EDT [facility] Absolute Eosinophils 0.07 0.03 - 0.61 K/cmm 03/01/2024 15:44 EDT [facility] ABS Basophils 0.03 0.01 - 0.11 K/cmm 03/01/2024 15:44 EDT [facility] Absolute Immature Grans 0.01 0.00 - 0.06 K/cmm 03/01/2024 15:44 EDT [facility] Type of Differential: Auto 03/01/2024 15:44 EDT [facility] Blood VENOUS BLOOD / Unknown Venipuncture / Unknown 03/01/2024 15:15 EDT 03/01/2024 15:24 EDT Joo Mary MD [facility] PACKAGES & DNA P ROBE ORDERABLES [facility] [address] [place] [address] * HEPATITIS C AB W REFLEX TO HCV RNA BY PCR (11/20/2023 8:33 EDT) Hep C Antibody Negative Negative 11/23/2023 10:38 EDT [facility] Blood VENOUS BLOOD / Unknown 11/20/2023 8:33 EDT 11/21/2023 21:27 EDT Provider Outr Resulting Lab CHEMISTRY & BLOOD GAS ORDERABLES [facility] [address] [place] [address] from Last 3 Months or Most Recently Relevant to Health Maintenance Viral Gutierrez Personal/Family Self [address] [place] [facility] [address] [place] [address] Viral Gutierrez Personal/Family Self [address] [facility] [address] [place] [address] Viral Gutierrez Personal/Family Self [address] [facility] [address] [place] [address] Care Teams Pack Mule Worker Relationship Specialty Start Date End Date Quynh Louie MD [address] [place] [phone] PCP - General 02/18/23 Sancho Hampton, POWER PLANT OPERATOR APPRENTICE Enterprise Account Manager Infectious Disease 03/31/23
--- OUTSIDE RECORDS SUMMARY | 2024-05-23 19:47 | XMS_ITS | Encounter Summary ---
Author Organization [facility] Address [address] [place] [address] Care Team Providers Care Translator/Interpreter Name Role Phone Quynh Louie MD Primary Care Provider [phone] Sancho Hampton Unavailable Unavailable Reason for Visit * Reason Onset Date Comments Medications Refill 06/25/2023 Encounter Details Date Type Department Care Team (Late st Contact Info) Description 06/25/2023 Refill [facility] Infectious Disease - [address] [phone] Joo Mary MD [address] [place] [address] Medications Refill Social History Tobacco [...] Tablet by mouth daily. 30 Tablet 5 06/25/2023 2023 documented in this encounter Miscellaneous Notes * Telephone Encounter - Kelly Carranza RN - 06/25/2023 1611 EDT Called [facility] in [place]. They will order the Biktarvy for tomorrow, they don't have any in stock and neither does their partner store in [facility]. Sent in RX for Biktarvy with 5 refills to [facility] in [place]. Spoke with patient. He missed today's dose, but he'll pick it up and dosetomorrow. He was worried about missing a dose. Explain we don't like that to happen, however it will be OK. Cancelled the Biktarvy RX that went to the [facility] pharmacy today. Patient will call with any problems filling. KELLY CARRANZA RN * Telephone Encounter - Kelly Carranza RN - 06/25/2023 1602 EDTFrom: Viral Gutierrez To: Office of Joo Mary MD [facility] Sent: 06/25/2023 15:19 EDT Subject: Medication Renewal Request Refills have been requested for the following medications: nzkooegfmlu-wwkrpqbhksoay-wjnijhfrl alafenamide (BIKTARVY) 50-200-25 mg per tablet [Javier Mary MD, [facility]] Patient Comment: I have none left and was supposed to fruit picker machine operator today but they said it needed to be renewed. Pref erred pharmacy: [id number] - [address] documented in this encounter Plan of Treatment Upcoming Encounters Date Type Department Care Team (Late st Contact Info) Description 08/25/2024 13:20 EST Office Visit [facility] Infectious Disease - [facility] [address] [place], [place] [phone] Benito Arora MD [address] [place] [address] documented as of this encounter Visit Diagnoses Not on filedocumented in this encounter Discontinued Medications Medication Sig Discontinue Reason Start Date End Da te bictegravir-emtricitabine -tenofovir alafenamide (BIKTARVY) 50-200-25 mg per tablet Take 1 Tablet by mouth daily. Reorder 06/25/2023 06/25/2023 documented as of this encounter Care Teams Translator/Interpreter Relationship Specialty Start Date End Date Quynh Louie MD [address] [place] [phone] PCP - General 02/18/23 Sancho Hampton, COAL MILL OPERATOR [employer] Infectious Disease 03/31/23 documented as of this encounter
--- OUTSIDE RECORDS SUMMARY | 2024-05-23 19:47 | XMS_ITS | Encounter Summary ---
Author Organization [facility] Address [address] [place] [address] Care Team Providers Care Stem Frazer Name Role Phone Quynh Louie MD Primary Care Provider [phone] Reason for Visit * Reason Comments New Patient Visit Encounter Details Date Type Department Care Team (Late st Contact Info) Description 02/19/2023 12:00 EDT Office Visit [facility] Infectious Disease - [facility] [address] [place] [address] Scarlet Bolivar NP [address] [facility], [address] [place] [address] Asymptomatic HIV infection, with no history of HIV-related illness ([facility]) (Primary Dx) Social History Tobacco Use Types Packs/Day Years Used Date Smoking Tobacco: Never Assessed Sex and Gender Information Value Date Recorded Sex Assigned at Not on file Gender Identity Male 02/18/2023 14:09 EDT Sexual Orientation Not on file documented as of this encounter Last Filed Vital Signs Vital Sign Reading Time Taken Comments Blood Pressure 143/91 02/19/2023 1158 EDT Pulse 102 02/19/2023 1158 EDT Temperature 36.9 ??C (98.4 ??F) 02/19/2023 1158 EDT Respiratory Rate - - Oxygen Saturation - - Inhaled Oxygen Concentration - - Weight 74.8 kg (165 lb) 02/19/2023 1158 EDT pt r eported Height - - Body Mass Index - - documented in this encounter Ordered Prescriptions Prescription Sig Dispensed Refills Start Date End Da te bictegravir-emtricitabine -tenofovir alafenamide (BIKTARVY) 50-200-25 mg per tablet Take 1 Tablet by mouth daily for 30 days. 30 Tablet 02/19/2023 02/19/2023 documented in this encounter Progress Notes * Scarlet Bolivar Bryson, TILE FITTER - 02/19/2023 1200 EDT INFECTIOUS DISEASES New Patient: HPI: Was diagnosed with Chlamydia after having discharge on the penis. Went to see PCP and was tested onrust surveillance and was found to be positive. Was on Truvada for PrEP for about a year but has been off for a year. Was negative about a year ago. Partner has not been tested and he does not think he will get tested any time soon per partners preference. Both incertive and receptive in intercourse. Has not been on ARV therapy for new diagnosis of HIV. Mood is ok. Has some friends who know of his diagnosis, parents are not aware of diagnosis. Had had thoughts of suicidal ideation, at this point does not have suicidal plans. Did have some SIideation when he found out he was diagnosed. Has not been on medication for mood but states suffers from depression. ROS: a 10 point ROS is otherwise negative MEDICATIONS: I have updated the medication list on the EMR Past Medical History: HIV, Depression Past Surgical History: None Social- Current every day smoker, Drinks heavy on the weekends (blackouts), Smokes marijuana. MSM intercourse both receptive and insert ve. Works at [employer]. PHYSICAL EXAMINATION: BP (!) 143/91 (BP Cuff Location: Left arm, BP Patient Position: Sitting, BP Cuff Sizes: Adult, regular) Pulse 102 Temp 36.9 ??C (98.4 ??F) (Temporal) Wt 74.8 kg (165 lb) Comment: pt reported Gen a x 3 no acute distress Lungs- clear throughout all rojas Cardiac- RRR no murmur Skin - warm dry no rash LABORATORIES: 02/16/23 CD4 692 HIV antibody positive HIV confirmation positive Hep C negative Syphilis negative Chlamydia positive 01/21/22 HIV antibody negative IMPRESSION: HIV- Patient with a new diagnosis of HIV, viral load still pending however antibody and confirmation positive. Will start on Biktarvy now ( I will call patient and verify positive viral load). He would like to get more information about Cabenuva and see if he is able to get this covered. Discussed risk and safe sex practices. Will get updated TB quant and start on the vaccine series with Monkey pox and Prevnar 20 vaccines. PLAN: 1. Biktarvy 1 tablet daily 2. Labs: TB Quant 3. F/u in one month 4. Will determine if Cabenuva can get covered 5. Small pox #1 and Prevnar 20 given today Scarlet Bolivar NP documented in this encounter Plan of Treatment Upcoming Encounters Date Type Department Care Team (Late st Contact Info) Description 08/25/2024 13:20 EST Office Visit [facility] Infectious Disease - [facility] [address] [place], [place] [phone] Benito Arora MD [address] [place] [address] documented as of this encounter Results * LIPID PROFILE (INCLUDES CHOLESTEROL, TRIGLYCERIDES, HDL, LDL) (02/19/2023 13:19 EDT) Cholesterol 196 <200 mg/dL 02/19/2023 14:28 T [facility] Comment:Note that therapeuti c goals will differ between patients based on cardiac risk factors and current medical therapy. HDL 65 >=40 mg/dL 02/19/2023 14:28 T [facility] Comment:Note that therapeuti c goals will differ between patients based on cardiac risk factors and current medical therapy. LDL, Calculated 111 <160 mg/dL 14:28 T [facility] Comment:Note that therapeuti c goals will differ between patients based on cardiac risk factors and current medical therapy. Triglyceride 101 <=150 mg/dL 02/19/2023 14:28 T [facility] Comment:Note that therapeuti c goals will differ between patients based on cardiac risk factors and current medical therapy. Chol/HDL Ratio 3.0 See Note 02/19/2023 14:28 [facility] Comment:No reference range h as been established for CHOL/HDL ratio. Non HDL Cholesterol 131 <160 mg/dL 02/19/2023 14:28 EDT [facility] Comment:Note that therapeuti c goals will differ between patients based on cardiac risk factors and current medical therapy. Blood VENOUS BLOOD / Unknown Venipuncture / Unknown 02/19/2023 13:19 EDT 02/19/2023 13:58 EDT Scarlet Bolivar TILE FITTER CHEMISTRY & BLOOD GA S ORDERABLES [facility] [address] [place] [address] documented in this encounter Visit Diagnoses Diagnosis Asymptomatic HIV infection, with no history of HIV-related illness ([facility] Primary documented in this encounter Orders Immunization/Injection Count Last Ordered Date First Ordered Date PNEUMOCOCCAL CONJUGATE VACCI NE 20-VALENT (PCV20) (PREVNAR-20) 0.5 ML IM (18 YRS+) 1 02/19/2023 SMALLPOX-MONKEYPOX VACCINE, ATTENUATED VACCINIA VIRUS, LIVE (JYNNEOS) EUA PF 0.1 ML INTRADERMAL 1 02/19/2023 documented in this encounter Care Teams Stem Frazer Relationship Specialty Start Date End Date Quynh Louie MD [address] [place] [phone] PCP - General 02/18/23 documented as of this encounter
--- OUTSIDE RECORDS SUMMARY | 2024-05-23 19:47 | XMS_ITS | Encounter Summary ---
Author Organization [facility] Address [address] [place] [address] Care Team Providers Care Rail Grinder Name Role Phone Quynh Louie MD Primary Care Provider [phone] Sancho Hampton Unavailable Unavailable Encounter Details Date Type Department Care Team (Late st Contact Info) Description 08/18/2023 14:45 EST Phlebotomy Only [facility] ED Center 2 Phlebotomy [address] [place] [address] Package Dye Stand Loader, Acc Phlebotomy Asymptomatic HIV infection, with no history of HIV-related illness ([facility]) Social History Tobacco Use Types Packs/Day Years Used Date Smoking Tobacco: Never Assessed Sex and Gender Information Value Date Recorded Sex Assigned at Not on file Gender Identity Male 02/18/2023 14:09 EDT Sexual Orientation Not on file documented as of this encounter Plan of Treatment Upcoming Encounters Date Type Department Care Team (Late st Contact Info) Description 08/25/2024 13:20 EST Office Visit [facility] Infectious Disease - [facility] [address] [place] [address] Benito Arora MD [address] [place] [phone] documented as of this encounter Procedures Procedure Name Priority Date/Time Associated Diagnosis Comments HIV 1 RNA QUANTITATION Routine 08/18/2023 14:50 EST Asymptomatic HIV infection, with no history of HIV-related illness ([facility]) T CELL SUBSETS Routine 08/18/2023 14:50 EST Asymptomatic HIV infection, with no history of HIV-related illness ([facility]) COMPLETE BLOOD COUNT AND DIFFERENTIAL Routine 08/18/2023 14:50 EST Asymptomatic HIV infection, with no history of HIV-related illness ([facility]) documented in this encounter Results * T CELL SUBSETS (08/18/2023 14:50 EST) [facility] % CD3 76 56 - 84 % 08/19/2023 16:16 [facility] % CD4 42 31 - 64 % 08/19/2023 16:16 [facility] % CD8 33 9 - 39 % 08/19/2023 16:16 [facility] Absolute CD3 1,125 840 - 2,669 Cells/uL 08/19/2023 16:16 [facility] Absolute CD4 625 488 - 1,734 Cells/uL 08/19/2023 16:16 [facility] Absolute CD8 479 154 - 1,097 Cells/uL 08/19/2023 16:16 [facility] 4/8 Ratio 1.31 >=0.90 08/19/2023 16:16 EST [facility] Blood VENOUS BLOOD / Unknown Venipuncture / Unknown 08/18/2023 14:50 EST 08/18/2023 15:20 EST Joo Mary MD [facility] IMMUNOLOGY AND S EROLOGY ORDERABLES [facility] [address] [place] [address] * HIV 1 RNA QUANTITATION (08/18/2023 14:50 EST) [facility] HIV RNA Detection, Qual Undetected Undetected copies/mL 08/20/2023 11:25 EST [facility] Blood VENOUS BLOOD / Unknown Venipuncture / Unknown 08/18/2023 14:50 EST 08/18/2023 15:22 EST [facility] - 08/20/2023 11:25 EST The quantification range of this assay is 20 IU/mL to 10,000,000 IU/mL. ??Testing was performed using the Aye HIV test ([employer] with the aye 6800 System. Joo Mary MD [facility] CHEMISTR[facility] & BLOO D GAS ORDERABLES [facility] [address] [place] [address] * COMPLETE BLOOD COUNT AND DIFFERENTIAL (08/18/2023 14:50 EST) WBC 4.80 4.00 - 10.40 K/cmm 08/18/2023 15:39 [facility] RBC 4.75 4.36 - 5.78 M/cmm 08/18/2023 15:39 [facility] Hemoglobin 15.2 13.8 - 17.3 g/dL 08/18/2023 15:39 [facility] HCT 43.1 39.5 - 50.2 % 08/18/2023 15:39 [facility] MCV 91 81 - 95 fL 08/18/2023 15:39 [facility] MCH 32.0 27.6 - 33.0 pg 08/18/2023 15:39 [facility] MCHC 35.3 32.8 - 36.4 g/dL 08/18/2023 15:39 [facility] RDW-CV 12.3 <14.2 % 08/18/2023 15:39 [facility] RDW-SD 41.1 <46.0 fl 08/18/2023 15:39 [facility] PLT 222 141 - 377 K/cmm 08/18/2023 15:39 [facility] MPV 9.8 9.5 - 12.7 fL 08/18/2023 15:39 [facility] % Neutrophils 60.2 % 08/18/2023 15:39 [facility] % Lymphocytes 28.8 % 08/18/2023 15:39 [facility] % Monocytes 9.0 % 08/18/2023 15:39 [facility] % Eosinophils 1.0 % 08/18/2023 15:39 [facility] % Basophils 0.8 % 08/18/2023 15:39 [facility] % Immature Grans 0.2 % 08/18/20 23 15:39 [facility] Absolute Neutrophils 2.89 2.20 - 8.85 K/cmm 08/18/2023 15:39 [facility] Absolute Lymphocytes 1.38 1.09 - 3.30 K/cmm 08/18/2023 15:39 [facility] Absolute Monocytes 0.43 0.10 - 0.80 K/cmm 08/18/2023 15:39 [facility] Absolute Eosinophils 0.05 0.03 - 0.61 K/cmm 08/18/2023 15:39 [facility] ABS Basophils 0.04 0.01 - 0.11 K/cmm 08/18/2023 15:39 [facility] Absolute Immature Grans 0.01 0.00 - 0.06 K/cmm 08/18/2023 15:39 [facility] Type of Differential: Auto 08/18/2023 15:39 [facility] Blood VENOUS BLOOD / Unknown Venipuncture / Unknown 08/18/2023 14:50 EST 08/18/2023 15:22 EST Joo Mary MD [facility] PACKAGES & DNA P ROBE ORDERABLES [facility] [address] [place] [address] documented in this encounter Visit Diagnoses Diagnosis Asymptomatic HIV infection, with no history of HIV-related illness ([facility]) documented in this encounter Care Teams Rail Grinder Relationship Specialty Start Date End Date Quynh Louie MD [address] [place] [phone] PCP - General 02/18/23 Sancho Hampton, INSERTER OPERATOR Office Service Coordinator Infectious Disease 03/31/23 documented as of this encounter
--- OUTSIDE RECORDS SUMMARY | 2024-05-23 19:47 | XMS_ITS | Encounter Summary ---
Author Organization [facility] Address [address] [place] [address] Care Team Providers Care Capacitor Tester Name Role Phone Quynh Louie MD Primary Care Provider [phone] Sancho Hampton Unavailable Unavailable Reason for Visit * Reason Comments Social Work Encounter Details Date Type Department Care Team (Late st Contact Info) Description 03/31/2023 13:00 EDT Nurse Only [facility] Infectious Disease - [facility] [address], [place] [phone] Sancho Hampton LICSW Asymptomatic HIV infection, with no history of HIV-related illness ([facility]) (Primary Dx) Social History Tobacco Use Types Packs/Day Years Used Date Smoking Tobacco: Never Assessed Sex and Gender Information Value Date Recorded Sex Assigned at Not on file Gender Identity Male 02/18/2023 14:09 EDT Sexual Orientation Not on file documented as of this encounter Progress Notes * Sancho Hampton LICSW - 03/31/2023 1300 EDT Met with Viral in clinic. He met with Dr. Arora today for the first time and that went well. He is on Biktarvy and has not noticed any side effects at all. 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 Unfortunately his partner has not yet gotten tested. Partner is a [place] resident so [facility] has attempted to link him with resources in [place] but he has not yet availed himself of those. Spent some time talking this through with Viral, who is not happy with him. Understands his anxiety but also wants him to not be so avoidant. Viral does have his BCBS card and provided this to [facility] as well as to pharmacy. He also got an invoice but did not have it with him. Will take a picture and send it by e-mail when he gets home. Let him know he does not have to send it every month, but will forward to [facility] to make sure they have the information they need and are paying it. He will continue to get invoices and should just check them to see if the premium amount has changed or if there is an overdue amount. Mentioned that he got a large bill from initial testing done at [facility]. Encouraged him to reach out to [facility] contact about this as they likely can cover with prevention funds. He had one hard interaction with the pharmacy but was able to work it out and discovered they were using the incorrect VMAP ID. Let him know he can always contact clinic for assistance with this as needed. Discussed connecting with a peer and Viral was interested. He is doing well but does notice that new diagnosis takes up a fair amount of brain space and would be happy to talk this through with someone who has gone through it. Agreed to link him with someone this week. Preferred communication method is text. He did end up telling his mother who did not react well. They have spoken since and things are better but the initial reaction was shaming and not supportive, which was what he expected. Does not plan to tell his father. His roommate is still supportive. Provided him with a gas card and parking voucher today to help with transportation costs. Plan: 1. Viral to send BCBS invoice for us to forward to [facility]. 2. Will connect him with peer as requested. 3. Viral will call if there is any further issue at the pharmacy. 4. Viral to sign up for [employer] - showed him the ave today. documented in this encounter Plan of Treatment Upcoming Encounters Date Type Department Care Team (Late st Contact Info) Description 08/25/2024 13:20 EST Office Visit [facility] Infectious Disease - [address] [place] [address] Benito Arora MD [address] [place] [phone] documented as of this encounter Visit Diagnoses Diagnosis Asymptomatic HIV infection, with no history of HIV-related illness ([facility] Primary documented in this encounter Care Teams Capacitor Tester Relationship Specialty Start Date End Date Quynh Louie MD [address] [place] [phone] PCP - General 02/18/23 Sancho Hampton, AIRBRUSH ARTIST PHOTOGRAPHY Loading Unit Operator Crimping Infectious Disease 03/31/23 documented as of this encounter
--- OUTSIDE RECORDS SUMMARY | 2024-05-23 19:47 | XMS_ITS | Encounter Summary ---
Author Organization [facility] Address [address] [place] [address] Care Team Providers Care Bone Char Puller Name Role Phone Quynh Louie MD Primary Care Provider [phone] Encounter Details Date Type Department Care Team (Late st Contact Info) Description 02/19/2023 Orders Only [facility] Disease [address] [phone] Scarlet Bolivar NP [address] [place] [address], [address] [place] [phone] Social History Tobacco Use Types Packs/Day Years [...] daily for 30 days. 30 Tablet 02/19/2023 03/24/2023 documented in this encounter Plan of Treatment Upcoming Encounters Date Type Department Care Team (Late st Contact Info) Description 08/25/2024 13:20 EST Office Visit [facility] Infectious Disease [address] [phone] Benito Arora MD [address] [place] [phone] documented as of this encounter Visit Diagnoses Not on filedocumented in this encounter Discontinued Medications Medication Sig Discontinue Reason Start Date End Da te bictegravir-emtricitabine -tenofovir alafenamide (BIKTARVY) 50-200-25 mg per tablet Take 1 Tablet by mouth daily for 30 days. 02/19/2023 02/19/2023 documented as of this encounter Care Teams Bone Char Puller Relationship Specialty Start Date End Date Quynh Louie MD [address] [place] [phone] PCP - General 02/18/23 documented as of this encounter
--- OUTSIDE RECORDS SUMMARY | 2024-05-23 19:47 | XMS_ITS | Encounter Summary ---
Author Organization [facility] Address [address] [place] [address] Care Team Providers Care Screw Machine Operator Swiss Type Name Role Phone Quynh Louie MD Primary Care Provider [phone] Reason for Visit * Reason Onset Date Comments Social Work 02/24/2023 Encounter Details Date Type Department Care Team (Late st Contact Info) Description 02/24/2023 Telephone [facility] Infectious Disease - [facility] [address] [place], [place] [phone] Sancho Hampton LICSW Social Work (/) Social History Tobacco Use Types Packs/Day Years Used Date Smoking Tobacco: Never Assessed Sex and Gender Information Value Date Recorded Sex Assigned at Not on file Gender Identity Male 02/18/2023 14:09 EDT Sexual Orientation Not on file documented as of this encounter Miscellaneous Notes * Telephone Encounter - Sancho Hampton LICSW - 02/24/2023 1702 EDT Called Viral to advise he can chicken picker Biktarvy from [employer] in [place] when he ready. He will likely go today at lunch or after work. It is feeling more real to him now since having the confirmation last week. He is doing all right generally. His partner is now agreeing to get tested and is working with a friend to do that. Viral has not heard where or of any results at this point. Encouraged him to call with any questions, particularly after starting the medication and he expresses understanding. Will remain available for social work needs. documented in this encounter Plan of Treatment Upcoming Encounters Date Type Department Care Team (Late st Contact Info) Description 08/25/2024 13:20 EST Office Visit [facility] Infectious Disease - [facility] [address] [place] [address] Benito Arora MD [address] [place] [phone] documented as of this encounter Visit Diagnoses Not on filedocumented in this encounter Care Teams Screw Machine Operator Swiss Type Relationship Specialty Start Date End Date Quynh Louie MD [address] [place] [phone] PCP - General 02/18/23 documented as of this encounter
--- OUTSIDE RECORDS SUMMARY | 2024-05-23 19:47 | XMS_ITS | Encounter Summary ---
Author Organization [facility] Address [address] [place] [address] Care Team Providers Care Want Ad Supervisor Name Role Phone Quynh Louie MD Primary Care Provider [phone] Reason for Visit * Reason Comments Social Work Encounter Details Date Type Department Care Team (Late st Contact Info) Description 02/19/2023 12:00 EDT Nurse Only [facility] Infectious Disease - [facility] [address] [place] [address] Sancho Hampton LICSW Asymptomatic HIV infection, with no history of HIV-related illness ([facility]) (Primary Dx) Social History Tobacco Use Types Packs/Day Years Used Date Smoking Tobacco: Never Assessed Sex and Gender Information Value Date Recorded Sex Assigned at Not on file Gender Identity Male 02/18/2023 14:09 EDT Sexual Orientation Not on file documented as of this encounter Progress Notes * Sancho Hampton LICSW - 02/19/2023 1200 EDT Initial Social Work Assessment Brief Summary of Current Assessment: Viral is a 22-year-old cisgender man who presents to the [facility] for initial visit after recent diagnosis of HIV. He lives in the [facility] but does not feel comfortable getting care there as he knows many people who work there and as he does not plan to tell his parents now, he is concerned about confidentiality. He did have initial blood work done at [facility] last week, ordered by PCP. He had some genital discharge and was tested and found positive for chlamydia and HIV. Was on PrEP previously but discontinued this about a year ago. Previous negative HIV test was about a year ago. Has a partner who has not yet been tested and is reluctantto do so. Has had a few other partners in the past year and is accessing Partner [facility] through [facility]. Met with him today along with Scarlet Bolivar NP. Mental Health/Psychiatric History: Reports a past history of depression symptoms. Has not had a formal diagnosis but was seeing a therapist in [place] up until about a year ago. Has not been on mental health medication. Current PHQ-2 score is 0 but would be worthwhile doing a PHQ-9 at follow-up visits. Coming to terms with diagnosis has been difficult but is not having any thoughts that life would not be worth living. Has had SI previously but no attempts and has never had a plan, more passive thoughts. Coming out to his family was hard and this was one of the times that symptoms wereworse. Does not plan to tell his parents about HIV diagnosis at this time. He is aware of of availability of film masker later this summer and will consider linking back up with therapist he was seeing previously. Will continue to check in about this in subsequent visits. Drug/Alcohol:Drinks alcohol, mostly on weekends. About once or twice a month drinks to the point ofblacking out. This is dependent on who he is with. Lately has found this a bit worrisome as he regains consciousness in a different location than where he had been. Also discussed rebound depression and anxiety, which he has noticed. With new diagnosis, would like to focus more on overall health and well being and feels drinking less is a part of that. At this point, thinks he can do it on his own but will let us know if this changes. Smokes marijuana regularly and at this time does not feel itis a cause for concern. Smokes cigarettes which he knows is not healthy. Does not use meth or heroin or drugs other than above. CAGE-AID score is 2. Will continue to check in about this in subsequentvisits and offer resources as appropriate. Financial: Uninsured Employment: Income is about 300% [employer] Family/Friends: Lives with a roommate who is aware of HIV diagnosis. Parents live nearby and he sees them regularly but they have a lot going on and he does not plan to tell them about his HIV. He iscurrently on his mom's insurance (until the end of the month) so does not feel comfortable using itto access ART. Has other friends who he has told and who are supportive. It's helpful to talk to them. 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 Went to college briefly but stoppedwhen COVID shut things down. Risk Factors: Transmission: MSM Adherence: Does not yet take any medications. Housing: Rents a house in [place], [place] with one roommate. Transportation: Car; is aware of availability of parking garage voucher. Agency Supports: Already established with Mar[facility] at [facility] and completed V[employer] application. Affiliations: Advance Directives: Understanding/Comprehension: No barriers to understanding noted. Identified Strengths/Resources: Stable housing and income. No issues with physical health other than recent diagnosis. Has a morongo of support who he can talk about HIV openly with. Identified Concerns/Life Stressors: Current insurance through his mom, who he does not intend to tell so worried about coverage. Current partner does not want to get tested, which is worrisome to Viral. Grappling with what it means to be diagnosed with HIV. Assessment: Viral is a 22-year-old cisgender man who is here for initial visit to manage HIV after recently being diagnosed. Discussed issues related to mental health, drinking, insurance coverage today and will follow these on an ongoing basis. Social Work Plan: 1. Oriented to clinic and discussed availability of [employer] funds, which he is eligible for (reviewed 1040, applied for VMAP). 2. Attempted to enroll Viral in the [place] [facility] program for an immediate fill of Biktarvy but becausehe does have the insurance through his mother, he was found not eligible. Will look at copay card once he has usable commercial insurance after 03/07/2023. 3. Completed [facility] application online and enrolled him into a BCBS silver level plan with start date of 03/07/2023. He was not eligible for subsidies as he is offered WAN with [facility] through current employer but declined it due to cost. We can revisit during next open enrollment. 4. VMAP application already submitted. Submitted physician verification form to complete application; coverage will be active next week. They will start paying the BCBS premium. They will also cover the full cost of the Biktarvy for 30 days until other coverage is in place. VMAP ID # is [id number]. 5. Next week will call pharmacy to give them processing information and then will notify Viral whenit is ready to meat pickler. 6. Discussed binge drinking, which Viral does want to cut down on. No concrete plans at this time; will discuss at next visit to see how it's going and offer other supports as needed. 7. Mental health support encouraged: asked him to consider reconnecting with therapist or we can provide referrals if that was not a good fit. Will revisit at next appointment. 8. He will return in 1 month to establish care with Dr. Arora and for follow up with social work. 9. Encouraged him to call in the meantime with any issues that arise. Will remain available for social work needs. Referrals: JESSICA Quevedo, [facility] Others: Cc: documented in this encounter Plan of Treatment Upcoming Encounters Date Type Department Care Team (Late st Contact Info) Description 08/25/2024 13:20 EST Office Visit [facility] Infectious Disease - [facility] [address], [place] [address] Benito Arora MD [address] [place] [address] documented as of this encounter Procedures Procedure Name Priority Date/Time Associated Diagnosis Comments QUANTIFERON MITOGEN (PERFORMABLE) Routine 02/19/2023 13:19 EDT Asymptomatic HIV infection, with no history of HIV-related illness (HCC-CMS) QUANTIFERON TB2 (PERFORMABLE) Routine 02/19/2023 13:19 EDT Asymptomatic HIV infection, with no history of HIV-related illness ([facility]) QUANTIFERON TB1 (PERFORMABLE) Routine 02/19/2023 13:19 EDT Asymptomatic HIV infection, with no history of HIV-related illness ([facility]) QUANTIFERON NIL (PERFORMABLE) Routine 02/19/2023 13:19 EDT Asymptomatic HIV infection, with no history of HIV-related illness ([facility]) QUANTIFERON INTERPRETATION (PERFORMABLE) Today 02/19/2023 13:19 EDT Asymptomatic HIV infection, with no history of HIV-related illness ([facility]) QUANTIFERON TB GOLD PLUS Routine 02/19/2023 13:19 EDT Asymptomatic HIV infection, with no history of HIV-related illness ([facility]) LIPID PROFILE (INCLUDES CHOLESTEROL, TRIGLYCERIDES, HDL, LDL) Routine 02/19/2023 13:19 EDT Asymptomatic HIV infection, with no history of HIV-related illness ([facility]) documented in this encounter Results * QUANTIFERON INTERPRETATION (PERFORMABLE) (02/19/2023 13:19 EDT) [facility] Quantiferon Interpretation Negative Negative 02/20/2023 14:31 EDT [facility] Comment:No interferon-gamma response to M. tuberculosis antigens was detected. ??Infection with M. tuberculosis is unlikely. A single negative result does not exclude infection with M. tuberculosis. ??In patients at high risk for M. tuberculosis infection, a second test should be considered. TB1 Ag minus Nil 0.02 IU/ml 02/21/20 14:31 EDT [facility] TB2 Ag minus Nil 0.02 IU/mL 02/21/20 14:31 T [facility] Blood VENOUS BLOOD / Unknown Venipuncture / Unknown 02/19/2023 13:19 EDT 02/20/2023 13:58 EDT Narrative [facility] - 02/20/2023 14:31 EDT Results were obtained with the [employer] QuantiFERON-TB Gold Plus CLIA. New platform in use 05/15/2021 Scarlet Bolivar NP IMMUNOLOGY AND SEROL OGY ORDERABLES [facility] [address] [place] [address] * QUANTIFERON MITOGEN (PERFORMABLE) (02/19/2023 13:19 EDT) Blood VENOUS BLOOD / Unknown Venipuncture / Unknown 02/19/2023 13:19 EDT 02/19/2023 13:54 EDT Scarlet J Catoe DIRECTOR OF SPORTS PERFORMANCE IMMUNOLOGY AND SEROL OGY ORDERABLES Performing Organization Address City/[facility]/ZIP Co de Phone Number [facility] [address] [place] [address] * QUANTIFERON TB2 (PERFORMABLE) (02/19/2023 13:19 EDT) Blood VENOUS BLOOD / Unknown Venipuncture / Unknown 02/19/2023 13:19 EDT 02/19/2023 13:54 EDT Scarlet J Catoe DIRECTOR OF SPORTS PERFORMANCE IMMUNOLOGY AND SEROL OGY ORDERABLES Performing Organization Address City/[facility]/ZIP Co de Phone Number [facility] [address] [place] [address] * QUANTIFERON TB1 (PERFORMABLE) (02/19/2023 13:19 EDT) Blood VENOUS BLOOD / Unknown Venipuncture / Unknown 02/19/2023 13:19 EDT 02/19/2023 13:54 EDT Scarlet J Catoe DIRECTOR OF SPORTS PERFORMANCE IMMUNOLOGY AND SEROL OGY ORDERABLES Performing Organization Address [facility] Co de Phone Number [facility] [address] [place] [address] * QUANTIFERON NIL (PERFORMABLE) (02/19/2023 13:19 EDT) Blood VENOUS BLOOD / Unknown Venipuncture / Unknown 02/19/2023 13:19 EDT 02/19/2023 13:54 EDT Scarlet J Catoe DIRECTOR OF SPORTS PERFORMANCE IMMUNOLOGY AND SEROL OGY ORDERABLES Performing Organization Address [facility]/ZIP Co de Phone Number [facility] [address] [place] [address] * LIPID PROFILE (INCLUDES CHOLESTEROL, TRIGLYCERIDES, HDL, LDL) (02/19/2023 13:19 EDT) Cholesterol 196 <200 mg/dL 02/19/2023 14:28 EDT [facility] Comment:Note that therapeuti c goals will differ between patients based on cardiac risk factors and current medical therapy. HDL 65 >=40 mg/dL 02/19/2023 14:28 EDT [facility] Comment:Note that therapeuti c goals will differ between patients based on cardiac risk factors and current medical therapy. LDL, Calculated 111 <160 mg/dL 14:28 T [facility] Comment:Note that therapeuti c goals will differ between patients based on cardiac risk factors and current medical therapy. Triglyceride 101 <=150 mg/dL 02/19/2023 14:28 EDT [facility] Comment:Note that therapeuti c goals will differ between patients based on cardiac risk factors and current medical therapy. Chol/HDL Ratio 3.0 See Note 02/19/2023 14:28 T [facility] Comment:No reference range h as been established for CHOL/HDL ratio. Non HDL Cholesterol 131 <160 mg/dL 02/19/2023 14:28 T [facility] Comment:Note that therapeuti c goals will differ between patients based on cardiac risk factors and current medical therapy. Blood VENOUS BLOOD / Unknown Venipuncture / Unknown 02/19/2023 13:19 EDT 02/19/2023 13:58 EDT Scarlet Bolivar NP CHEMISTRY & BLOOD GA S ORDERABLES [facility] [address] [place] [address] documented in this encounter Visit Diagnoses Diagnosis Asymptomatic HIV infection, with no history of HIV-related illness ([facility])- Primary documented in this encounter Care Teams Want Ad Supervisor Relationship Specialty Start Date End Date Quynh Louie MD [address] [place] [phone] PCP - General 02/18/23 documented as of this encounter
--- OUTSIDE RECORDS SUMMARY | 2024-05-23 19:47 | XMS_ITS | Encounter Summary ---
Author Organization [facility] Address [address] [place] [address] Care Team Providers Care Wooden Fence Erector Name Role Phone Quynh Louie MD Primary Care Provider [phone] Sancho Hampton Unavailable Unavailable Reason for Visit * Reason Onset Date Comments Medications Refill 2023 Encounter Details Date Type Department Care Team (Late st Contact Info) Description 2023 Telephone [facility] Infectious Disease [facility] [address] [place], [place] [address] Sancho Hampton, DEHYDROGENATION CONVERTER OPERATOR Medications Refill Social History Tobacco Use Types [...] Info) Description 08/25/2024 13:20 EST Office Visit [facility] Infectious Disease [facility] [address] [place] [address] Benito Arora MD [address] [place] [phone] documented as of this encounter Visit Diagnoses Not on filedocumented in this encounter Care Teams Wooden Fence Erector Relationship Specialty Start Date End Date Quynh Louie MD [address] [place] [phone] PCP - General 02/18/23 Sancho Hampton, DEHYDROGENATION CONVERTER OPERATOR Worker'S Compensation Claims Examiner Infectious Disease 03/31/23 documented as of this encounter
--- OUTSIDE RECORDS SUMMARY | 2024-05-23 19:47 | XMS_ITS | Encounter Summary ---
Author Organization [facility] Address [address] [place] [address] Care Team Providers Care Construction Crew Member Name Role Phone Quynh Louie MD Primary Care Provider [phone] Sancho Hampton Unavailable Unavailable Encounter Details Date Type Department Care Team (Late st Contact Info) Description 06/02/2023 15:45 EDT Phlebotomy Only [facility] 2 Phlebotomy [address] [place], [place] [address] [place], [place] Phlebotomy Asymptomatic HIV infection, with no history of HIV-related illness (HCC) Social History Tobacco Use Types Packs/Day Years Used Date Smoking Tobacco: Never Assessed Sex and Gender Information Value Date Recorded Sex Assigned at Not on file Gender Identity Male 02/18/2023 14:09 EDT Sexual Orientation Not on file documented as of this encounter Plan of Treatment Upcoming Encounters Date Type Department Care Team (Late st Contact Info) Description 08/25/2024 13:20 EST Office Visit [facility] Infectious Disease - [facility] [address] [place] [address] Benito Arora MD [address] [place] [phone] documented as of this encounter Procedures Procedure Name Priority Date/Time Associated Diagnosis Comments HIV 1 RNA QUANTITATION Routine 15:56 EDT Asymptomatic HIV infection, with no history of HIV-related illness (HCC) TSH Routine 06/02/2023 15:56 EDT Asymptomatic HIV infection, with no history of HIV-related illness (HCC) COMPREHENSIVE METABOLIC PANEL (CMP) Routine 06/02/2023 15:56 EDT Asymptomatic HIV infection, with no history of HIV-related illness (HCC) documented in this encounter Results * TSH (06/02/2023 15:56 EDT) [facility] TSH 0.58 0.47 - 4.68 mIU/L 06/02/2023 17:14 EDT [facility] Blood VENOUS BLOOD / Unknown Venipuncture / Unknown 06/02/2023 15:56 EDT 06/02/2023 16:05 EDT Narrative [facility] - 06/02/2023 17:14 EDT The results of this assay can be falsely lowered due to the consumption of Biotin. Joo Mary MD [facility] CHEMISTRY & BLOO D GAS ORDERABLES Performing Organization Address [facility] Co de Phone Number [facility] [address] [place] [address] * HIV 1 RNA QUANTITATION (06/02/2023 15:56 EDT) [facility] HIV RNA Detection, Qual Undetected Undetected copies/mL 06/04/2023 13:56 EDT [facility] Blood VENOUS BLOOD / Unknown Venipuncture / Unknown 06/02/2023 15:56 EDT 06/02/2023 16:05 EDT Narrative [facility] - 06/04/2023 13:56 EDT The quantification range of this assay is 20 IU/mL to 10,000,000 IU/mL. ??Testing was performed using the Susan HIV test ([employer] with the susan 6800 System. Joo Mary MD [facility] CHEMISTRY & BLOO D GAS ORDERABLES Performing Organization Address [facility]/ZIP Co de Phone Number [facility] [address] [place] [address] * (ABNORMAL) COMPREHENSIVE METABOLIC PANEL (CMP) (06/02/2023 15:56 EDT) Sodium 141 136 - 145 mmol/L 06/02/2023 16:41 [facility] Potassium 4.0 3.5 - 5.0 mmol/L 06/02/2023 16:41 [facility] Chloride 102 96 - 110 mmol/L 06/02/2023 16:41 [facility] CO2 Total 27 22 - 32 mmol/L 06/02/2023 16:41 [facility] Glucose 84 70 - 99 mg/dl 06/02/2023 16:41 [facility] BUN 11 10 - 26 mg/dL 06/02/2023 16:41 [facility] Creatinine 0.76 0.66 - 1.25 mg/dL 06/02/2023 16:41 [facility] eGFR 130 >60 mL/min/1.7 3m2 06/02/2023 16:41 [facility] Total Protein 8.0 6.3 - 8.2 g/dL 06/02/2023 16:41 [facility] Albumin 5.2(H) 3.4 - 4.9 g/dL 06/02/2023 16:41 [facility] Alkaline Phosphatase 50 38 - 126 U/L 06/02/2023 16:41 [facility] AST 23 15 - 46 U/L 06/02/2023 16:41 [facility] ALT 18 <50 U/L 06/02/2023 16:41 [facility] Bilirubin, Total <0.5 <1.4 mg/dL 06/02/20 16:41 [facility] Calcium 9.9 8.5 - 10.5 mg/dL 06/02/2023 16:41 [facility] Albumin/Globulin Ratio 1.9 1.0 - 2.5 g/dL 06/02/2023 16:41 [facility] Anion Gap 12 5 - 14 mmol/L 06/02/2023 16:41 EDT [facility] Blood VENOUS BLOOD / Unknown Venipuncture / Unknown 06/02/2023 15:56 EDT 06/02/2023 16:05 EDT Joo Mary MD [facility] CHEMISTRY & BLOO D GAS ORDERABLES [facility] [address] [place] [address] documented in this encounter Visit Diagnoses Diagnosis Asymptomatic HIV infection, with no history of HIV-related illness (HCC) documented in this encounter Care Teams Construction Crew Member Relationship Specialty Start Date End Date Quynh Louie MD [address] [place] [phone] PCP - General 02/18/23 Sancho Hampton LICSW Supervisor Tunnel Heading Infectious Disease 03/31/23 documented as of this encounter
--- OUTSIDE RECORDS SUMMARY | 2024-05-23 19:47 | XMS_ITS | Encounter Summary ---
Author Organization [facility] Address [address] [place] [address] Care Team Providers Care Aviation Engineer Name Role Phone Quynh Louie MD Primary Care Provider [phone] Sancho Hampton Unavailable Unavailable Encounter Details Date Type Department Care Team (Late st Contact Info) Description 2023 Orders Only [facility] Infectious Disease [address] [id number] Dee Galloway, RN Social History Tobacco Use Types Packs/Day Years Used Date Smoking Tobacco: Never Assessed Sex and Gender Information Value Date Recorded Sex Assigned at Not on file Gender Identity Male 02/18/2023 14:09 EDT Sexual Orientation Not on file documented as of this encounter Ordered Prescriptions Prescription Sig Dispensed Refills Start Date End Da te bictegravir-emtricitabine- tenofovir alafenamide (BIKTARVY) 50-200-25 mg per tablet Take 1 Tablet by mouth daily. 30 Tablet 5 2023 documented in this encounter Plan of Treatment Upcoming Encounters Date Type Department Care Team (Late st Contact Info) Description 08/25/2024 13:20 EST Office Visit [address] [phone] Benito Arora MD [address] [place] [phone] documented as of this encounter Visit Diagnoses Not on filedocumented in this encounter Discontinued Medications Medication Sig Discontinue Reason Start Date End Da te bictegravir-emtricitabine -tenofovir alafenamide (BIKTARVY) 50-200-25 mg per tablet Take 1 Tablet by mouth daily. Reorder 06/25/2023 2023 documented as of this encounter Care Teams Aviation Engineer Relationship Specialty Start Date End Date Quynh Louie MD [address] [place] [phone] PCP - General 02/18/23 Sancho Hampton, SALES APPRENTICE Hoop Coiling Machine Operator Infectious Disease 03/31/23 documented as of this encounter
--- OUTSIDE RECORDS SUMMARY | 2024-05-23 19:47 | XMS_ITS | Encounter Summary ---
Author Organization [facility] Address [address] [place] [address] Care Team Providers Care Edge Bonder Name Role Phone Quynh Louie MD Primary Care Provider [phone] Sancho Hampton Unavailable Unavailable Encounter Details Date Type Department Care Team (Late st Contact Info) Description 11/21/2023 Lab Requisition [facility] Pathology & Laboratory Medicine - [address] [address] Outr Resulting Lab, Provider Social History Tobacco [...] Info) Description 08/25/2024 13:20 EST Office Visit [facility] Infectious Disease - [address] [address] Benito Arora MD [address] [place] [phone] documented as of this encounter Procedures Procedure Name Priority Date/Time Associated Diagnosis Comments SYPHILIS SEROLOGY Routine 11/20/2023 8:33 EDT HEPATITIS C AB W REFLEX TO HCV RNA BY PCR Routine 11/20/2023 8:33 EDT documented in this encounter Results * SYPHILIS SEROLOGY (11/20/2023 8:33 EDT) Syphilis Serology Negative Negative 11/23/2023 11:16 EDT [facility] Blood VENOUS BLOOD / Unknown 11/20/2023 8:33 EDT 11/21/2023 21:27 EDT Provider Outr Resulting Lab IMMUNOLOGY A ND SEROLOGY ORDERABLES Performing Organization Address City/[facility]/ZIP Co de Phone Number [facility] [address] [place], [place] [phone] * HEPATITIS C AB W REFLEX TO HCV RNA BY PCR (11/20/2023 8:33 EDT) Hep C Antibody Negative Negative 11/23/2023 10:38 EDT [facility] Blood VENOUS BLOOD / Unknown 11/20/2023 8:33 EDT 11/21/2023 21:27 EDT Provider Outr Resulting Lab CHEMISTRY & BLOOD GAS ORDERABLES Performing Organization Address City/[facility]/ZIP Co de Phone Number [facility] [address] [place], [place] [phone] documented in this encounter Visit Diagnoses Not on filedocumented in this encounter Care Teams Edge Bonder Relationship Specialty Start Date End Date Quynh Louie MD [address] [place] [phone] PCP - General 02/18/23 Sancho Hampton LICSW Supervisor Soldering Infectious Disease 03/31/23 documented as of this encounter
--- OUTSIDE RECORDS SUMMARY | 2024-05-23 19:47 | XMS_ITS | Encounter Summary ---
Author Organization [facility] Address [address] [place] [address] Care Team Providers Care Food Inspector Name Role Phone Quynh Louie MD Primary Care Provider [phone] Sancho Hampton Unavailable Unavailable Reason for Visit * Reason Onset Date Comments Medications Refill 06/25/2023 Encounter Details Date Type Department Care Team (Late st Contact Info) Description 06/25/2023 Refill [facility] Infectious Disease [address] [phone] Benito Arora MD [address] [place] [phone] Medications Refill Social History Tobacco Use Types [...] 1 Tablet by mouth daily. 30 Tablet 06/25/2023 06/25/2023 documented in this encounter Plan of Treatment Upcoming Encounters Date Type Department Care Team (Late st Contact Info) Description 08/25/2024 13:20 EST Office Visit [address] [phone] Benito Arora MD [address] [place] [phone] documented as of this encounter Visit Diagnoses Not on filedocumented in this encounter Discontinued Medications Medication Sig Discontinue Reason Start Date End Da te bictegravir-emtricitabine -tenofovir alafenamide (BIKTARVY) 50-200-25 mg per tablet Take 1 Tablet by mouth daily. Reorder 05/22/2023 06/25/2023 documented as of this encounter Care Teams Food Inspector Relationship Specialty Start Date End Date Quynh Louie MD [address] [place] [phone] PCP - General 02/18/23 Sancho Hampton, GENERAL FOUNDRY WORKER Yard Associate Infectious Disease 03/31/23 documented as of this encounter
--- OUTSIDE RECORDS SUMMARY | 2024-05-23 19:47 | XMS_ITS | Encounter Summary ---
Author Organization [facility] Address [address] [place] [address] Care Team Providers Care Hospital Nursing Assistant Name Role Phone Quynh Louie MD Primary Care Provider [phone] Sancho Hampton Unavailable Unavailable Reason for Visit * Reason Onset Date Comments Social Work 04/02/2023 Encounter Details Date Type Department Care Team (Late st Contact Info) Description 04/02/2023 Telephone [facility] Infectious Disease - [facility] [address] [place], [place] [phone] Sancho Hampton LICSW Social Work Social History Tobacco Use Types Packs/Day Years Used Date Smoking Tobacco: Never Assessed Sex and Gender Information Value Date Recorded Sex Assigned at Not on file Gender Identity Male 02/18/2023 14:09 EDT Sexual Orientation Not on file documented as of this encounter Miscellaneous Notes * Telephone Encounter - Sancho Hampton LICSW - 04/02/2023 6289 EDT Called Viral to let him know I sent e-mail with name of peer and also with reminder to send [employer] invoice. He is still looking for invoice but will send it when he finds it. Will plan to connect with peer in the coming weeks. He is now signed up for [employer] and prefers communication through that. Got undetectable VL results through there today and is very glad to have that. documented in this encounter Plan of Treatment Upcoming Encounters Date Type Department Care Team (Late st Contact Info) Description 08/25/2024 13:20 EST Office Visit [facility] Infectious Disease - [facility] [address] [place] [address] Benito Arora MD [address] [place] [phone] documented as of this encounter Visit Diagnoses Not on filedocumented in this encounter Care Teams Hospital Nursing Assistant Relationship Specialty Start Date End Date Quynh Louie MD [address] [place] [phone] PCP - General 02/18/23 Sancho Hampton LIEUTENANT SHIFT SUPERVISOR Quill Cleaner Infectious Disease 03/31/23 documented as of this encounter
--- OUTSIDE RECORDS SUMMARY | 2024-05-23 19:47 | XMS_ITS | Encounter Summary ---
Author Organization [facility] Address [address] [place] [address] Care Team Providers Care Quarter Trimmer Name Role Phone Quynh Louie MD Primary Care Provider [phone] Sancho Hampton Unavailable Unavailable Encounter Details Date Type Department Care Team (Late st Contact Info) Description 08/14/2023 Lab Requisition [facility] Pathology & Laboratory Medicine - [address] [address] Outr Resulting Lab, Provider Social History Tobacco [...] Info) Description 08/25/2024 13:20 EST Office Visit [facility] Infectious Disease - [address] [address] Benito Arora MD [address] [place] [phone] documented as of this encounter Procedures Procedure Name Priority Date/Time Associated Diagnosis Comments SYPHILIS SEROLOGY Routine 08/13/2023 13: 15 EST documented in this encounter Results * SYPHILIS SEROLOGY (08/13/2023 13:15 EST) Syphilis Serology Negative Negative 08/17/2023 10:57 EST [facility] Blood VENOUS BLOOD / Unknown 08/13/2023 13:15 EST 08/14/2023 19:25 EST Provider Outr Resulting Lab IMMUNOLOGY A ND SEROLOGY ORDERABLES Performing Organization Address City/State/[facility] Co de Phone Number [facility] [address] [place] [address] documented in this encounter Visit Diagnoses Not on filedocumented in this encounter Care Teams Quarter Trimmer Relationship Specialty Start Date End Date Quynh Louie MD [address] [place] [phone] PCP - General 02/18/23 Sancho Hampton LICSW Help Desk Associate Infectious Disease 03/31/23 documented as of this encounter
--- OUTSIDE RECORDS SUMMARY | 2024-05-23 19:47 | XMS_ITS | Encounter Summary ---
Author Organization [facility] Address [address] [place] [address] Care Team Providers Care Executive Advisor Name Role Phone Quynh Louie MD Primary Care Provider [phone] Sancho Hampton Unavailable Unavailable Encounter Details Date Type Department Care Team (Late st Contact Info) Description 03/31/2023 14:30 EDT Phlebotomy Only [facility] 2 Phlebotomy [address] [place] [address] Ex Chef, Acc Phlebotomy Asymptomatic HIV infection, with no history of HIV-related illness ([facility]) Social History Tobacco Use Types Packs/Day Years [...] Office Visit [facility] Infectious Disease - [facility] [address] [place] [address] Benito Arora MD [address] [place] [phone] documented as of this encounter Procedures Procedure Name Priority Date/Time Associated Diagnosis Comments HIV 1 RNA QUANTITATION Routine 03/31/2023 14:28 EDT Asymptomatic HIV infection, with no history of HIV-related illness ([facility]) documented in this encounter Results * HIV 1 RNA QUANTITATION (03/31/2023 14:28 EDT) HIV RNA Detection, Qual Undetected Undetected copies/mL 04/02/2023 11:15 EDT [facility] Blood VENOUS BLOOD / Unknown Venipuncture / Unknown 03/31/2023 14:28 EDT 03/31/2023 14:40 EDT Narrative [facility] - 04/02/2023 11:15 EDT The quantification range of this assay is 20 IU/mL to 10,000,000 IU/mL. ??Testing was performed using the Aye HIV test ([employer] with the aye 6800 System. Carolina Snow MD CHEMISTRY & BLOO D GAS ORDERABLES [facility] [address] [place] [address] documented in this encounter Visit Diagnoses Diagnosis Asymptomatic HIV infection, with no history of HIV-related illness ([facility]) documented in this encounter Care Teams Executive Advisor Relationship Specialty Start Date End Date Quynh Louie MD [address] [place] [phone] PCP - General 02/18/23 Sancho Hampton LICSW Director Medical Surgical Infectious Disease 03/31/23 documented as of this encounter
--- OUTSIDE RECORDS SUMMARY | 2024-05-23 19:47 | XMS_ITS | Encounter Summary ---
Author Organization [facility] Address [address] [place] [address] Care Team Providers Care Pastry Chef Name Role Phone Quynh Louie MD Primary Care Provider [phone] Sancho Hampton Unavailable Unavailable Encounter Details Date Type Department Care Team (Late st Contact Info) Description 08/13/2023 Lab Requisition [facility] Pathology & Laboratory Medicine - [address] [address] Outr Resulting Lab, Provider Social History Tobacco [...] 08/25/2024 13:20 EST Office Visit [facility] Infectious Disease - [address] [address] Benito Arora MD [address] [place] [phone] documented as of this encounter Procedures Procedure Name Priority Date/Time Associated Diagnosis Comments CHLAMYDIA/N. GONORRHOEAE AMPLIFIED NUCLEIC ACID Routine 08/13/2023 13:15 EST documented in this encounter Results * CHLAMYDIA/N. GONORRHOEAE AMPLIFIED RNA (08/13/2023 13:15 EST) Neisseria gonorrhoeae Result Negative Negative 08/14/2023 14:09 EST [facility] Chlamydia trachomatis Result Negative Negative 08/14/2023 14:09 EST [facility] Urine URINE / Unknown 08/13/2023 1 3:15 EST 08/13/2023 22:09 EST Provider Outr Resulting Lab MICROBIOLOGY - GENERAL ORDERABLES [facility] [address] [place] [address] documented in this encounter Visit Diagnoses Not on filedocumented in this encounter Care Teams Pastry Chef Relationship Specialty Start Date End Date Quynh Louie MD [address] [place] [phone] PCP - General 02/18/23 Sancho Hampton LICSW Third Mate Infectious Disease 03/31/23 documented as of this encounter
--- OUTSIDE RECORDS SUMMARY | 2024-05-23 19:47 | XMS_ITS | Encounter Summary ---
Author Organization [facility] Address [address] [place] [address] Care Team Providers Care Food Services Director Name Role Phone Quynh Louie MD Primary Care Provider [phone] Sancho Hampton Unavailable Unavailable Reason for Visit * Reason Comments Follow-up Encounter Details Date Type Department Care Team (Late st Contact Info) Description 03/31/2023 12:30 EDT Office Visit [facility] Infectious Disease - [facility] [address] [place], [place] [address] Benito Arora MD [address] [place] [phone] Asymptomatic HIV infection, with no history of HIV-related illness ([facility]) (Primary Dx) Social History Tobacco Use Types Packs/Day Years Used Date Smoking Tobacco: Never Assessed Sex and Gender Information Value Date Recorded Sex Assigned at Not on file Gender Identity Male 02/18/2023 14:09 EDT Sexual Orientation Not on file documented as of this encounter Last Filed Vital Signs Vital Sign Reading Time Taken Comments Blood Pressure 150/90 03/31/2023 1220 EDT Pulse 101 03/31/2023 1220 EDT Temperature 37.3 ??C (99.1 ??F) 03/31/2023 1220 EDT Respiratory Rate - - Oxygen Saturation - - Inhaled Oxygen Concentration - - Weight 72.6 kg (160 lb) 03/31/2023 1220 EDT pt r eported Height - - Body Mass Index - - documented in this encounter Progress Notes * Benito Arora MD - 03/31/2023 1230 EDT Infectious Disease Clinic HIV Clinic Note Date of Service: 03/31/2023 Reason for Follow Up: HIV care HPI: Viral is a 22 y/o M w/ a recent diagnosis of HIV in 2022. He saw Scarlet Candelariavlad 02/19/2023 for initiation of ART on Biktarvy. He had a recent chlamydia infection with his PCP and was found to be HIV positive. Prior to this, he had been on Truvada for PrEP for about a year, but then off for a year. He had a negative HIV testone year ago. Today, he feels well without acute complaints. His mood has been labile with his new diagnosis, andoccasionally feels overwhelmed by it all. He has had low mood in the past never diagnosed for depression and never on therapy. No fevers, chills, dyspnea, chest pain, ab pain, diarrhea, dysuria, penile discharge, groin lesions, anal lesions, rash. He's been taking Biktarvy daily w/ only one missed dose. His partner is still hesitant to receive HIV testing. PMHx: has no past medical history on file. PSHx: has no past surgical history on file. No family history on file. Social History Tobacco: Y, 6 pack/year history. Not interested in quitting at this time. Alcohol: 15 drinks weekly Recreational Drugs: Marijuana, occasional mushrooms, occasional ecstasy. 3x intranasal cocaine use ever. Born and Raised: [place], [place]. 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 Relationships / living situation: Lives w/ a good friend in the [facility] area. One male sexualpartner at this time who lives motor vehicle parts interpreter in [place]. Sexual: 7 male partners in the past year, 3 in the past 6 months. Practices oral/anal receptive/insertive sex. Animal exposure: Once cat in the home with minimal scratches. No farm animal exposures. Allergies Allergen Reactions ??? Penicillins Rash Current Outpatient Medications Medication ??? BIKTARVY 50-200-25 mg per tablet No current facility-administered medications for this visit. Immunization History Administered Date(s) Administered ??? Pneumococcal Conjugate Vaccine 20-Valent (PCV20) (PREVNAR-20) 0.5 mL IM (18 yrs+) 02/19/2023 ??? Smallpox-monkeypox Vaccine, Attenuated Vaccinia Virus, Live (JYNNEOS) EUA (PF) 0.1 mL intradermal 02/19/2023 Vital Signs BP (!) 150/90 (BP Cuff Location: Right arm, BP Patient Position: Sitting, BP Cuff Sizes: Adult, regular) Pulse 101 Temp 37.3 ??C (99.1 ??F) (Temporal) Wt 72.6 kg (160 lb) Comment: pt reported Physical Exam 03/31/2023 13:14 General: Well appearing. In no acute distress. HEENT: No conjunctival icterus or pallor. No oropharyngeal erythema or exudate. Chest: Lungs clear to auscultation bilaterally. CV: Normal rate and regular rhythm. No murmurs, gallops, or rubs. 2+ radial pulses. GI: Abdomen soft, not tender, not distended. Neuro: Alert and oriented x4. Face symmetrical without dysarthria. Moving all extremities spontaneously. Extremities: No lower extremity edema. 2+ pedal pulses. Skin: No rashes, skin breakdown, or jaundice. Psych: Appropriate mood and affect. Labs 02/09/2023 Chlamydia Swab NAAT: Positive Gonorrhea Swab NAAT: Negative Syphilis serology: Negative 02/16/2023 CD4 692 VL 216 HAV Ab Positive HBsAb Positive HBsAg Negative HBcAb Negative HCV Ab Negatie 02/19/2023 Quantiferon Gold: Negative TChol 196 LDL 111 HDL 65 TG 101 Assessment and Plan: Viral Gutierrez is a 22 y.o. male with a PMHx significant for newly diagnosed HIV here for regular follow up after new initiation of ART 1. HIV Low mood in the setting of recent diagnosis. No need for treatment at this time. He may be a good candidate for Wellbutrin going forward in combination for smoking cessation therapy. Next visit in 2 months: Vaccines (below). Recheck VL today. -Diagnosed 02/09/2023 -CD4 692 -VL 216 -Biktarvy (no prior regimens) -OI PPx: none -Adherence: no issues -Sexual activity: 1 male partner -Anal cancer screening: none -Safety labs: none -G/C: C+ 02/09/2023, treated. -RPR/Syphilis Ab: negative -HBV: Immune -HCV: Negative -Dental exam: N/A 2. Health Maintenance Next visit: menactra and possibly HPV (pending childhood records) -Cholesterol: wnl -Diabetes: N/A -Colonoscopy: N/A -Immunizations: Mpox x2, PCV20. He will obtain childhood records -Pap: N/A Patient was seen and examined with attending, Dr. Snow. Benito Arora MD 03/31/2023 13:14 Infectious Disease Fellow, PGY-4 [phone] Currently employed: Yes Adherence counseling: Yes Linguistic services: No Patient with HIV (-) partner: Yes HIV (-) partner tested within the last 12 months: No Partner notification discussed: Yes Social History Social History Tobacco Use Smoking Status Not on file Smokeless Tobacco Not on file Smoking cessation discussed: Yes Gonorrhea and chlamydia testing done in the past year: Yes Oral exam done at this visit: No Seen by dentist in the past year. No Referred to dentist at this visit: No Housing: Stable HIV risk reduction counseling: Yes Screened for mental health: Yes Screened for substance abuse: Yes Current substance use (used more than once in the past 12 months): excessive alcohol (8 or more drinks per week for women, 15 or more drinks per week for men), marijuana and cocaine * Carolina Snow MD - 03/31/2023 1230 EDT Attestation statement: I have seen and examined the patient with the resident/fellow. I agree with the findings and plan of care documented in the resident's/fellow's note. Carolina Snow MD 04/06/2023 13:20 documented in this encounter Plan of Treatment Upcoming Encounters Date Type Department Care Team (Late st Contact Info) Description 08/25/2024 13:20 EST Office Visit [facility] Infectious Disease - [address] [address] Benito Arora MD [address] [place] [phone] documented as of this encounter Results * HIV 1 RNA QUANTITATION (03/31/2023 14:28 EDT) HIV RNA Detection, Qual Undetected Undetected copies/mL 04/02/2023 11:15 EDT [facility] Blood VENOUS BLOOD / Unknown Venipuncture / Unknown 03/31/2023 14:28 EDT 03/31/2023 14:40 EDT Narrative [facility] - 04/02/2023 11:15 EDT The quantification range of this assay is 20 IU/mL to 10,000,000 IU/mL. ??Testing was performed using the Aye HIV test ([employer] with the aye 6800 System. Carolina Snow MD CHEMISTRY & BLOO D GAS ORDERABLES [facility] [address] [place] [address] documented in this encounter Visit Diagnoses Diagnosis Asymptomatic HIV infection, with no history of HIV-related illness ([facility] Primary documented in this encounter Orders Immunization/Injection Count Last Ordered Date First Ordered Date SMALLPOX-MONKEYPOX VACCINE, ATTENUATED VACCINIA VIRUS, LIVE (JYNNEOS) PF 0.5 ML SQ 1 03/31/2023 documented in this encounter Care Teams Food Services Director Relationship Specialty Start Date End Date Quynh Louie MD [address] [place] [phone] PCP - General 02/18/23 Sancho Hampton LICSW Validation Leader Infectious Disease 03/31/23 documented as of this encounter
--- OUTSIDE RECORDS SUMMARY | 2024-05-23 19:47 | XMS_ITS | Encounter Summary ---
Author Organization [facility] Address [address] [place] [address] Care Team Providers Care Glue Machine Operator Name Role Phone Quynh Louie MD Primary Care Provider [phone] Reason for Visit * Reason Onset Date Comments Medication Questions 02/24/2023 Encounter Details Date Type Department Care Team (Late st Contact Info) Description 02/24/2023 Telephone [facility] Infectious Disease - [facility] [address] [place], [place] [address] Ree Wilkins [facility] Medication Questions Social History Tobacco Use Types Packs/Day Years Used Date Smoking Tobacco: Never Assessed Sex and Gender Information Value Date Recorded Sex Assigned at Not on file Gender Identity Male 02/18/2023 14:09 EDT Sexual Orientation Not on file documented as of this encounter Progress Notes * Ree Wilkins RPH - 02/24/2023 1513 EDT Discussed question of if Cabenuva would be covered for this patient with provider, Scarlet Bolivar. [employer] Patient Assistance Program would not be an option for this patient because he has VMAP. VMAP will not cover Cabenuva. I also recommended revisiting Cabenuva as an option after the patient has achieved viral suppression. If he has insurance coverage at that point, they may require longer than 3 months of viral suppression for approval. Prior authorization can be requested through our usual process ([id number] with help of ID Pharmacist in clinic) if patient is a candidate for Cabenuva in the future. Scarlet recommended this be discussed upon patient's request at follow-up appointment with Dr. Arora in March. Ree Wilkins, PharmD Ambulatory Pharmacist [facility] Infectious Disease 02/24/2023 documented in this encounter Plan of Treatment Upcoming Encounters Date Type Department Care Team (Late st Contact Info) Description 08/25/2024 13:20 EST Office Visit [facility] Infectious Disease - [facility] [address] [place] [address] Benito Arora MD [address] [place] [phone] documented as of this encounter Visit Diagnoses Not on filedocumented in this encounter Care Teams Glue Machine Operator Relationship Specialty Start Date End Date Quynh Louie MD [address] [place] [phone] PCP - General 02/18/23 documented as of this encounter
--- OUTSIDE RECORDS SUMMARY | 2024-05-23 19:47 | XMS_ITS | Encounter Summary ---
Author Organization [facility] Address [address] [place] [address] Care Team Providers Care Commercial Horticulture Instructor Name Role Phone Quynh Louie MD Primary Care Provider [phone] Sancho Hampton Unavailable Unavailable Reason for Visit * Reason Comments Follow-up Encounter Details Date Type Department Care Team (Late st Contact Info) Description 03/01/2024 13:40 EDT Office Visit [facility] Infectious Disease - [facility] [address], [place] [id number] Benito Arora MD [address] [place] [phone] Asymptomatic HIV infection, with no history of HIV-related illness ([facility]-CMS) (Primary Dx); HIV infection, unspecified symptom status (HCC-CMS) Social History Tobacco Use Types Packs/Day Years [...] Progress Notes * Benito Arora MD - 03/01/2024 1340 EDT Infectious Disease Clinic HIV Clinic Note Date of Service: 03/01/2024 Reason for Follow Up: HIV care HPI 22 y.o. M with HIV here for regular management. He continues to take Biktarvy daily without issue. He has no recent changes in his health. He's been hiking a lot and found a few ticks on him, but no fever, chills, headache, rash, diarrhea, dyspnea. He's had a couple different sexual encounters without concern for STI. One of his partners he thinks has genital herpes, but he does not have an penile or scrotal lesions at this time. No penile discharge, anal pain or discharge. He had G/C urine testing with his PCP 11/2023 that was negative. HIV History Diagnosed 02/09/2023 after a chlamydial infection. On ckoexaulrkz-ghhzfgpwijuuw-zokxwxrev alafenamide. PMHx HIV Urethral Chlamydia PSHx None Allergies Penicillin - rash Medications Vfssvjxgjfa-lmjzdtnkuouww-NOS Social History Tobacco: Y, 6 pack/year history. Not interested in quitting at this time. Alcohol: 15 drinks weekly Recreational Drugs: Marijuana. Never IVDU. Born and Raised: [place], [place]. Employment: Works at a local [employer]. Relationships / living situation: Lives w/ a good friend in the [facility] area. One male sexualpartner at this time who lives night time babysitter in [place]. Sexual: 7 male partners in the past year, 3 in the past 6 months. Practices oral/anal receptive/insertive sex. Animal exposure: Once cat in the home with minimal scratches. No farm animal exposures. Family Hx N/A Vital Signs BP (!) 143/98 (BP Cuff Location: Left arm, BP Patient Position: Sitting, BP Cuff Sizes: Adult, regular) Pulse 103 Temp 37 ??C (98.6 ??F) (Tympanic) Wt 74.8 kg (165 lb) Physical Exam General: In no acute distress. Lungs: Clear to auscultation. Cardiac: Normal rate and regular rhythm. No murmur. 2+ radial pulses. Neuro: Alert and oriented x4. Face symmetrical. Moving all extremities spontaneously. Extremities: No lower extremity edema. 2+ pedal pulses. Skin: No rashes or jaundice. Psych: Appropriate mood and affect. Labs 08/18/2023 WBC 4.8 Hgb 15.2 Plt 222 CD4 625 HIV RNA Undetected Microbiology 11/20/2023 Syphilis serology Negative HCV Ab Negative Urine Chlamydia/Gonorrhea Negative Imaging None Immunization History Administered Date(s) Administered Covid-19 mRNA Vaccine (MODERNA COVID-19) PF 0.5 ml IM (12 yrs+) 01/10/2021, 02/07/2021, 08/23/2021 HPV Quadrivalent Recombinant Vaccine 06/15/2014, 09/14/2014, 01/19/2015 Hib 03/03/2001, 05/05/2001, 07/09/2001, 03/25/2002 Historical DTaP Vaccine, Unspecified 03/03/2001, 05/05/2001, 07/09/2001, 03/25/2002, 12/20/2004 Historical Hepatitis A Vaccine, Unspecified 12/15/2008, 06/20/2009, 06/15/2014 Historical Hepatitis B Vaccine, Unspecified 07/09/2001, 10/08/2001, 06/24/2002, 02/15/2021, 03/22/2021, 08/23/2021 Influenza Vaccine Quad (AFLURIA) PF 0.5 ml IM (3 yrs+) 10/07/2017, 07/27/2020, 06/21/2021 MMR Vaccine SQ 12/24/2001, 01/01/2006 Meningococcal B Vaccine (BEXSERO), Recombinant, OMV IM 04/06/2019 Meningococcal Conjugate (MCV4) Vaccine (MENACTRA) 4-Valent IM 01/21/2012, 04/06/2019 Pneumococcal Conjugate Vaccine 20-Valent (PCV20) (PREVNAR-20) 0.5 mL IM (6 wks+) 02/19/2023 Pneumococcal Polysaccharide (PPSV23) Vaccine (PNEUMOVAX-23) =>2YO SQ/IM 11/22/2021 Smallpox-Monkeypox Vaccine, Attenuated Vaccinia Virus, Live (JYNNEOS) (PF) 0.5 mL SQ 03/31/2023 Smallpox-monkeypox Vaccine, Attenuated Vaccinia Virus, Live (JYNNEOS) EUA (PF) 0.1 mL intradermal 02/19/2023 Tdap Vaccine =>7YO IM 01/21/2012, 01/21/2022 Assessment and Plan Carter Gutierrez is a 23 y.o. male with well controlled HIV on ART. HIV Well controlled since diagnosis 2022. Labs today: VL, CD4 Current ART: Biktarvy Next visit: 6 months HIV Hx CD4 current: 625 (08/18/2023) VL current: Undetected (08/18/2023) CD4 mekhi: 625 (08/18/2023) VL peak: 216 (02/16/2023) Prior ART: N/A Genotype/resistance: N/A OI PPx: None Anal cancer screening: N/A G/C: Urine, rectal, oral Negative (08/18/2023) Syphilis Ab: Negative RPR: N/A Tb: IGRA Negative HAV: tAb+ HBV: sAb+, cAb-, sAg- HCV: Ab- Health maintenance Immunizations needed: Meningococcal ACWY. Patient was discussed with attending, Dr. Marquez. Benito Arora MD Infectious Disease Fellow, PGY-4 Currently employed: Yes Adherence counseling: Yes Linguistic services: No Patient with HIV (-) partner: Unknown HIV (-) partner tested within the last 12 months: Unknown Partner notification discussed: Unknown Social History Social History Tobacco Use Smoking Status Not on file Smokeless Tobacco Not on file Smoking cessation discussed: Yes Gonorrhea and chlamydia testing done in the past year: Yes Oral exam done at this visit: No Seen by dentist in the past year. No Referred to dentist at this visit: No Housing: Stable HIV risk reduction counseling: Yes Screened for mental health: No Screened for substance abuse: Yes Current substance use (used more than once in the past 12 months): marijuana I have seen and examined Mr. Gutierrez and discussed the case with Dr. Arora. I agree with the assessment and recommendations as described in their note. Dennis Marquez MD Infectious Diseases documented in this encounter Miscellaneous Notes * Addendum Note - Jamey Marquez MD - 03/01/2024 1340 EDTAddended by: JAMEY MARQUEZ on: 03/01/2024 16:59 Modules accepted: Level of Service documented in this encounter Plan of Treatment Upcoming Encounters Date Type Department Care Team (Late st Contact Info) Description 08/25/2024 13:20 EST Office Visit [facility] Infectious Disease - [facility] [address] [place] [address] Benito Arora MD [address] [place] [phone] documented as of this encounter Visit Diagnoses Diagnosis Asymptomatic HIV infection, with no history of HIV-related illness (HCC-CMS)- Primary HIV infection, unspecified symptom status (HCC-CMS) documented in this encounter Orders Immunization/Injection Count Last Ordered Date First Ordered Date MENINGOCOCCAL POLYSACCHARIDE VACCINE (MENQUADFI) (GROUPS A, C, Y, W-135) TT CONJUGATE IM 1 03/01/2024 documented in this encounter Care Teams Commercial Horticulture Instructor Relationship Specialty Start Date End Date Quynh Louie MD [address] [place] [phone] PCP - General 02/18/23 Sancho Hampton SENIOR SOFTWARE QUALITY ENGINEER Jacket Changer Infectious Disease 03/31/23 documented as of this encounter
--- OUTSIDE RECORDS SUMMARY | 2024-05-23 19:47 | XMS_ITS | Encounter Summary ---
Author Organization [facility] Address [address] [place] [address] Care Team Providers Care Christmas Tree Contractor Name Role Phone Quynh Louie MD Primary Care Provider [phone] Sancho Hampton Unavailable Unavailable Reason for Visit * Reason Comments Follow-up Encounter Details Date Type Department Care Team (Late st Contact Info) Description 08/18/2023 13:40 EST Office Visit [facility] Infectious Disease - [facility] [address], [place] [id number] Benito Arora MD [address] [place] [address] Asymptomatic HIV infection, with no history of HIV-related illness ([facility]) (Primary Dx) Social History Tobacco Use Types Packs/Day Years Used Date Smoking Tobacco: Never Assessed Sex and Gender Information Value Date Recorded Sex Assigned at Not on file Gender Identity Male 02/18/2023 14:09 EDT Sexual Orientation Not on file documented as of this encounter Last Filed Vital Signs Vital Sign Reading Time Taken Comments Blood Pressure 161/94 08/18/2023 1339 EST Pulse 75 08/18/2023 1339 EST Temperature 36.7 ??C (98 ??F) 08/18/2023 1339 EST Respiratory Rate - - Oxygen Saturation - - Inhaled Oxygen Concentration - - Weight 76.7 kg (169 lb) 08/18/2023 1339 EST Height - - Body Mass Index - - documented in this encounter Progress Notes * Benito Arora MD - 08/18/2023 1340 EST Infectious Disease Clinic HIV Clinic Note Date of Service: 08/18/2023 Reason for Follow Up: HIV HPI: Patient is a 22 y/o male w/ HIV diagnosed 02/09/2023 presenting to ID clinic for regular HIV management. He has been on cbgogvtoysp-onwozconnlefe-uhumaayxt alafenamide since his diagnosis. His initial diagnosis occurred after a recent chlamydia infection. He has since had negative repeat G/C urine testing, but not oral or rectal testing. He has some ongoing chills like last visit, but mostly related to going outside in the cold weatherthat he is not as worried about. He has more vivid dreams in the past few months, up to a couple oftimes per week. He is wondering if this is related to his HIV medication, however it has not happened before while on ART. He is hoping to figure out a new pharmacy plan as his pharmacy has not filled his ART properly a couple of times. He had a URI a few months ago that self resolved. No ongoing fevers, dyspnea, chest pain, ab pain, GI upset. Same male partner without sexual activity. His partner is still not interested in HIV testing. PMHx: HIV Chlamydia PSHx: None Medications Current Outpatient Medications Medication ophnuhsgtir-dhumllhwfxpcr-yxuybmvjq alafenamide (BIKTARVY) 50-200-25 mg per tablet No current facility-administered medications for this visit. Allergies Allergies Allergen Reactions Penicillins Rash Social History Tobacco: Y, 6 pack/year history. Not interested in quitting at this time. Alcohol: 15 drinks weekly Recreational Drugs: Marijuana, recent intranasal cocaine. Never IVDU. Born and Raised: [place], [place]. Employment: Works at a local [employer]. Relationships / living situation: Lives w/ a good friend in the [facility] area. One male sexualpartner at this time who lives timekeeping supervisor in [place]. Sexual: 7 male partners in the past year, 3 in the past 6 months. Practices oral/anal receptive/insertive sex. Animal exposure: Once cat in the home with minimal scratches. No farm animal exposures. Family Hx: Reviewed. Vital Signs BP (!) 161/94 (BP Cuff Location: Left arm, BP Patient Position: Sitting, BP Cuff Sizes: Adult, regular) Pulse 75 Temp 36.7 ??C (98 ??F) (Temporal) Wt 76.7 kg (169 lb) Physical Exam 08/18/2023 13:42 General: In no acute distress. HEENT: No conjunctival icterus or pallor. No cervical or axillary lymphadenopathy. Chest: Lungs clear to auscultation. CV: Normal rate and regular rhythm. No murmurs. 2+ radial pulses. Neuro: Alert and oriented x4. Face symmetrical. Moving all extremities spontaneously. Extremities: No lower extremity edema. 2+ pedal pulses. Psych: Appropriate mood and affect. Labs 08/13/2023 Urine GC: negative Immunization History Administered Date(s) Administered Covid-19 mRNA [...] y.o. male with a PMHx significant for HIV well controlled on ART. HIV New diagnosis 2022 in the setting of chlamydia infection. Needs full G/C testing today. -Next visit in 6 months: VL, CD4 -Current ART: abkcyllunzh-jnkhvpavyeexh-lwwcghlaq alafenamide -Repeat G/C testing today; oropharyngeal, urine, rectal -VL, CD4 today as well HIV Hx: -Diagnosed on: 02/09/2023 -CD4 current: 692 (02/16/2023) -VL current: Undetected -CD4 mekhi: N/A -VL peak: 216 (02/16/2023) -Prior ART: N/A -OI PPx: N/A -Adherence: Good -Sexual activity: Not active -Anal cancer screening: N/A -Safety labs: Lipid panel wnl -G/C: Urine Negative (08/13/2023) -Syphilis Ab: Negative (05/08/2023) -RPR: N/A -Tb: Quant gold negative (02/19/2023) -HAV: total Ab positive (02/16/2023) -HBV: sAb+, cAb-, sAg- (02/16/2023) -HCV: Ab- (02/09/2023) -Dental exam: N/A Health maintenance Contemplative about smoking cessation -Immunizations needed: N/A Patient was discussed with attending, Dr. Mary. Benito Arora MD 08/18/2023 13:42 Infectious Disease Fellow, PGY-4 [phone] Currently employed: [...] than once in the past 12 months): cocaine * Joo Mary MD [facility] - 08/18/2023 1340 EST ID ATTENDING Patient has HIV well-controlled by Biktarvy. Will update labs today while doing STI screens. He's precontemplative about smoking cessation but concerned by learning recently that a friend in his 20'shas COPD so we promised to revisit the topic at his next visit in 6 months so we can support his move toward self- care in the form of tobacco cessation. I interviewed and examined the patient and perused the relevant labs, micro, imaging, path and other relevant data independently in the formulation of the plan above, which I reviewed and agree with,with edits as appropriate. documented in this encounter Plan of Treatment Upcoming Encounters Date Type Department Care Team (Late st Contact Info) Description 08/25/2024 13:20 EST Office Visit [facility] Infectious Disease - [address] [id number] Benito Arora MD [address] [place] [phone] documented as of this encounter Procedures Procedure Name Priority Date/Time Associated Diagnosis Comments CHLAMYDIA/N. GONORRHOEAE AMPLIFIED NUCLEIC ACID Routine 08/18/2023 14:03 EST Asymptomatic HIV infection, with no history of HIV-related illness ([facility]) CHLAMYDIA/N. GONORRHOEAE AMPLIFIED NUCLEIC ACID Routine 08/18/2023 14:03 EST Asymptomatic HIV infection, with no history of HIV-related illness ([facility]) documented in this encounter Results * T CELL SUBSETS (03/01/2024 15:15 EDT) Pathologist [facility] % CD3 71 56 - 84 % 03/02/2024 16:20 EDT [facility] % CD4 40 31 - 64 % 03/02/2024 16:20 EDT [facility] % CD8 29 9 - 39 % 03/02/2024 16:20 EDT [facility] Absolute CD3 1,293 840 - 2,669 Cells/uL 03/02/2024 16:20 EDT [facility] Absolute CD4 721 488 - 1,734 Cells/uL 03/02/2024 16:20 EDT [facility] Absolute CD8 534 154 - 1,097 Cells/uL 03/02/2024 16:20 T [facility] 4/8 Ratio 1.35 >=0.90 03/02/2024 16:20 EDT [facility] Blood VENOUS BLOOD / Unknown Venipuncture / Unknown 03/01/2024 15:15 EDT 03/01/2024 15:24 EDT Joo Mary MD [facility] IMMUNOLOGY AND S EROLOGY ORDERABLES [facility] [address] [place] [address] * HIV 1 RNA QUANTITATION (03/01/2024 15:15 EDT) [facility] HIV RNA Detection, Qual Undetected Undetected copies/mL 03/03/2024 11:52 EDT [facility] Blood VENOUS BLOOD / Unknown Venipuncture / Unknown 03/01/2024 15:15 EDT 03/01/2024 15:24 EDT Narrative [facility] - 03/03/2024 11:52 EDT The quantification range of this assay is 20 IU/mL to 10,000,000 IU/mL. ??Testing was performed using the Susan HIV test ([employer] with the susan 6800 System. Joo Mary MD [facility] CHEMISTRY & BLOO D GAS ORDERABLES [facility] [address] [place] [address] * (ABNORMAL) COMPLETE BLOOD COUNT AND DIFFERENTIAL (03/01/2024 15:15 EDT) WBC 4.58 4.00 - 10.40 K/cmm 03/01/2024 15:44 [facility] RBC 5.17 4.36 - 5.78 M/cmm 03/01/2024 15:44 [facility] Hemoglobin 16.5 13.8 - 17.3 g/dL 03/01/2024 15:44 [facility] HCT 47.5 39.5 - 50.2 % 03/01/2024 15:44 [facility] MCV 92 81 - 95 fL 03/01/2024 15:44 [facility] MCH 31.9 27.6 - 33.0 pg 03/01/2024 15:44 [facility] MCHC 34.7 32.8 - 36.4 g/dL 03/01/2024 15:44 [facility] RDW-CV 12.4 <14.2 % 03/01/2024 15:44 [facility] RDW-SD 41.9 <46.0 fl 03/01/2024 15:44 [facility] PLT 240 141 - 377 K/cmm 03/01/2024 15:44 [facility] MPV 9.3(L) 9.5 - 12.7 fL 03/01/2024 15:44 [facility] % Neutrophils 53.5 % 03/01/2024 15:44 [facility] % Lymphocytes 34.5 % 03/01/2024 15:44 [facility] % Monocytes 9.6 % 03/01/2024 15:44 [facility] % Eosinophils 1.5 % 03/01/2024 15:44 [facility] % Basophils 0.7 % 03/01/2024 15:44 [facility] % Immature Grans 0.2 % 03/01/20 15:44 [facility] Absolute Neutrophils 2.45 2.20 - 8.85 K/cmm 03/01/2024 15:44 [facility] Absolute Lymphocytes 1.58 1.09 - 3.30 K/cmm 03/01/2024 15:44 [facility] Absolute Monocytes 0.44 0.10 - 0.80 K/cmm 03/01/2024 15:44 [facility] Absolute Eosinophils 0.07 0.03 - 0.61 K/cmm 03/01/2024 15:44 [facility] ABS Basophils 0.03 0.01 - 0.11 K/cmm 03/01/2024 15:44 [facility] Absolute Immature Grans 0.01 0.00 - 0.06 K/cmm 03/01/2024 15:44 [facility] Type of Differential: Auto 03/01/2024 15:44 [facility] Blood VENOUS BLOOD / Unknown Venipuncture / Unknown 03/01/2024 15:15 EDT 03/01/2024 15:24 EDT Joo Mary MD [facility] PACKAGES & DNA P ROBE ORDERABLES [facility] [address] [place] [address] * T CELL SUBSETS (08/18/2023 14:50 EST) % CD3 76 56 - 84 % 08/19/2023 16:16 EST [facility] % CD4 42 31 - 64 % 08/19/2023 16:16 EST [facility] % CD8 33 9 - 39 % 08/19/2023 16:16 [facility] Absolute CD3 1,125 840 - 2,669 Cells/uL 08/19/2023 16:16 EST [facility] Absolute CD4 625 488 - 1,734 Cells/uL 08/19/2023 16:16 [facility] Absolute CD8 479 154 - 1,097 Cells/uL 08/19/2023 16:16 [facility] 4/8 Ratio 1.31 >=0.90 08/19/2023 16:16 EST [facility] Blood VENOUS BLOOD / Unknown Venipuncture / Unknown 08/18/2023 14:50 EST 08/18/2023 15:20 EST Joo Mary MD [facility] IMMUNOLOGY AND S EROLOGY ORDERABLES Performing Organization Address [facility] Co de Phone Number [facility] [address] [place] [address] * HIV 1 RNA QUANTITATION (08/18/2023 14:50 EST) Pathologist [facility] HIV RNA Detection, Qual Undetected Undetected copies/mL 08/20/2023 11:25 EST [facility] Blood VENOUS BLOOD / Unknown Venipuncture / Unknown 08/18/2023 14:50 EST 08/18/2023 15:22 EST Narrative [facility] - 08/20/2023 11:25 EST The quantification range of this assay is 20 IU/mL to 10,000,000 IU/mL. ??Testing was performed using the Susan HIV test ([employer] with the susan 6800 System. Joo Mary MD [facility] CHEMISTRY & BLOO D GAS ORDERABLES Performing Organization Address [facility]/ZIP Co de Phone Number [facility] [address] [place] [address] * COMPLETE BLOOD COUNT AND DIFFERENTIAL (08/18/2023 14:50 EST) Pathologist [facility] WBC 4.80 4.00 - 10.40 K/cmm 08/18/2023 15:39 EST [facility] RBC 4.75 4.36 - 5.78 M/cmm 08/18/2023 15:39 [facility] Hemoglobin 15.2 13.8 - 17.3 g/dL 08/18/2023 15:39 [facility] HCT 43.1 39.5 - 50.2 % 08/18/2023 15:39 [facility] MCV 91 81 - 95 fL 08/18/2023 15:39 [facility] MCH 32.0 27.6 - 33.0 pg 08/18/2023 15:39 [facility] MCHC 35.3 32.8 - 36.4 g/dL 08/18/2023 15:39 [facility] RDW-CV 12.3 <14.2 % 08/18/2023 15:39 [facility] RDW-SD 41.1 <46.0 fl 08/18/2023 15:39 [facility] PLT 222 141 - 377 K/cmm 08/18/2023 15:39 [facility] MPV 9.8 9.5 - 12.7 fL 08/18/2023 15:39 [facility] % Neutrophils 60.2 % 08/18/2023 15:39 [facility] % Lymphocytes 28.8 % 08/18/2023 15:39 [facility] % Monocytes 9.0 % 08/18/2023 15:39 [facility] % Eosinophils 1.0 % 08/18/2023 15:39 [facility] % Basophils 0.8 % 08/18/2023 15:39 [facility] % Immature Grans 0.2 % 08/18/20 15:39 [facility] Absolute Neutrophils 2.89 2.20 - 8.85 K/cmm 08/18/2023 15:39 [facility] Absolute Lymphocytes 1.38 1.09 - 3.30 K/cmm 08/18/2023 15:39 [facility] Absolute Monocytes 0.43 0.10 - 0.80 K/cmm 08/18/2023 15:39 [facility] Absolute Eosinophils 0.05 0.03 - 0.61 K/cmm 08/18/2023 15:39 [facility] ABS Basophils 0.04 0.01 - 0.11 K/cmm 08/18/2023 15:39 [facility] Absolute Immature Grans 0.01 0.00 - 0.06 K/cmm 08/18/2023 15:39 [facility] Type of Differential: Auto 08/18/2023 15:39 [facility] Blood VENOUS BLOOD / Unknown Venipuncture / Unknown 08/18/2023 14:50 EST 08/18/2023 15:22 EST Joo Mary MD [facility] PACKAGES & DNA P ROBE ORDERABLES Performing Organization Address [facility] Co de Phone Number [facility] [address] [place] [address] * CHLAMYDIA/N. GONORRHOEAE AMPLIFIED RNA (08/18/2023 14:03 EST) Neisseria gonorrhoeae Result Negative Negative 08/19/2023 13:08 [facility] Chlamydia trachomatis Result Negative Negative 08/19/2023 13:08 [facility] Swab ORAL / Unknown Swab / Unknown 08/18/2023 14:03 EST 08/18/2023 14:34 EST Joo Mary MD [facility] MICROBIOLOGY - G ENERAL ORDERABLES Performing Organization Address City/[facility]/ZIP Co de Phone Number [facility] [address] [place] [address] * CHLAMYDIA/N. GONORRHOEAE AMPLIFIED RNA (08/18/2023 14:03 EST) Neisseria gonorrhoeae Result Negative Negative 08/19/2023 12:38 [facility] Chlamydia trachomatis Result Negative Negative 08/19/2023 12:38 [facility] Swab RECTAL / Unknown Swab / Unknown 3 14:03 EST 08/18/2023 14:34 EST Joo Mary MD [facility] MICROBIOLOGY - G ENERAL ORDERABLES [facility] [address] [place] [address] documented in this encounter Visit Diagnoses Diagnosis Asymptomatic HIV infection, with no history of HIV-related illness ([facility])- Primary documented in this encounter Care Teams Christmas Tree Contractor Relationship Specialty Start Date End Date Quynh Louie MD [address] [place] [phone] PCP - General 02/18/23 Sancho Hampton LICSW Adoption Social Worker Infectious Disease 03/31/23 documented as of this encounter
--- OUTSIDE RECORDS SUMMARY | 2024-05-23 19:47 | XMS_ITS | Encounter Summary ---
Author Organization [facility] Address [address] [place] [address] Care Team Providers Care Land Inspector Name Role Phone Anthony Tobisa MD Primary Care Provider Quynh Martinez MD Primary Care Provider [phone] Sancho Hampton Unavailable Unavailable Encounter Details Date Type Department Care Team (Late st Contact Info) Description 02/10/2023 Lab Requisition [facility] Pathology & Laboratory Medicine - [address] [address] Outr Resulting Lab, Provider Social History Tobacco [...] Office Visit [facility] Infectious Disease [address] [address] Benito Arora MD [address] [place] [phone] documented as of this encounter Procedures Procedure Name Priority Date/Time Associated Diagnosis Comments CHLAMYDIA/N. GONORRHOEAE AMPLIFIED NUCLEIC ACID Routine 02/09/2023 12:12 EDT documented in this encounter Results * (ABNORMAL) CHLAMYDIA/N. GONORRHOEAE AMPLIFIED RNA (02/09/2023 12:12 EDT) Neisseria gonorrhoeae Result Negative Negative 02/11/2023 15:31 EDT [facility] Chlamydia trachomatis Result Positive(A) Negative 02/11/2023 15:31 EDT [facility] Swab ENTIRE URETHRA / Unknown 02/09/2023 12:12 EDT 02/10/2023 16:59 EDT Provider Outr Resulting Lab MICROBIOLOGY - GENERAL ORDERABLES [facility] [address] [place] [address] documented in this encounter Visit Diagnoses Not on filedocumented in this encounter Care Teams Land Inspector Relationship Specialty Start Date End Date Anthony Tobias MD PCP - General 03/29/10 02/17/23 Quynh Louie MD [address] [place] [phone] PCP - General 02/18/23 Sancho Hampton, ELASTIC ATTACHER [employer] Cl[employer] Teacher Infectious Disease 03/31/23 documented as of this encounter
--- OUTSIDE RECORDS SUMMARY | 2024-05-23 19:47 | XMS_ITS | Encounter Summary ---
Author Organization [facility] Address [address] [place] [address] Care Team Providers Care Strategic Partnership Representative Name Role Phone Quynh Louie MD Primary Care Provider [phone] Sancho Hampton Unavailable Unavailable Encounter Details Date Type Department Care Team (Late st Contact Info) Description 05/08/2023 Lab Requisition [facility] Pathology & Laboratory Medicine - [address] [address] Outr Resulting Lab, Provider Social History Tobacco [...] Info) Description 08/25/2024 13:20 EST Office Visit [facility] Infectious Disease [address] [address] Benito Arora MD [address] [place] [phone] documented as of this encounter Procedures Procedure Name Priority Date/Time Associated Diagnosis Comments SYPHILIS SEROLOGY Routine 05/08/2023 9:30 EDT documented in this encounter Results * SYPHILIS SEROLOGY (05/08/2023 9:30 EDT) Syphilis Serology Negative Negative 05/11/2023 10:34 EDT [facility] Blood VENOUS BLOOD / Unknown 05/08/2023 9:30 EDT 05/08/2023 20:54 EDT Provider Outr Resulting Lab IMMUNOLOGY A ND SEROLOGY ORDERABLES [facility] [address] [place] [address] documented in this encounter Visit Diagnoses Not on filedocumented in this encounter Care Teams Strategic Partnership Representative Relationship Specialty Start Date End Date Quynh Louie MD [address] [place] [phone] PCP - General 02/18/23 Sancho Hampton MOTOR POOL DRIVER Certified Vehicle Fire Investigator Infectious Disease 03/31/23 documented as of this encounter
--- OUTSIDE RECORDS SUMMARY | 2024-05-23 19:47 | XMS_ITS | Encounter Summary ---
Author Organization [facility] Address [address] [place] [address] Care Team Providers Care Donkey Doctor Name Role Phone Anthony Tobias MD Primary Care Provider Quynh Martienz MD Primary Care Provider [phone] Sancho Hampton Unavailable Unavailable Encounter Details Date Type Department Care Team (Late st Contact Info) Description 02/16/[address] [facility] Pathology & Laboratory Medicine - [address] [address] Outr Resulting Lab, Provider Social History Tobacco [...] Info) Description 08/25/2024 13:[address] [facility] Infectious Disease [address] [address] Benito Arora MD [address] [place] [phone] documented as of this encounter Procedures Procedure Name Priority Date/Time Associated Diagnosis Comments HEPATITIS A ANTIBODY IGM Today 02/16/2023 12:34 EDT HEPATITIS A TOTAL ANTIBODY W REFLEX Routine 02/16/2023 12:34 EDT HEPATITIS B SURFACE ANTIBODY Routine 02/16/2023 12:34 EDT HEPATITIS B SURFACE ANTIGEN Routine 02/16/2023 12:34 EDT documented in this encounter Results * HEPATITIS A ANTIBODY IGM (02/16/2023 12:34 EDT) Hepatitis A Antibody, IgM Negative Negative 02/17/2023 13:02 EDT [facility] Blood VENOUS BLOOD / Unknown 02/16/2023 12:34 EDT 02/16/2023 21:34 EDT Narrative [facility] - 02/17/2023 13:02 EDT The results of this assay can be falsely lowered due to the consumption of Biotin. Provider Outr Resulting Lab CHEMISTRY & BLOOD GAS ORDERABLES Performing Organization Address [facility] de Phone Number [facility] [address] [place] [address] * HEPATITIS B SURFACE ANTIBODY (02/16/2023 12:34 EDT) Pathologist [facility] Hep B Surface Ab, Quantitative >1,000.0 See Note mIU/mL 02/17/2023 9:46 EDT [facility] Comment: Reference Range for Hep B Surface Ab, Quant: Positive: >= 10.0 mIU/mL Negative: ??< 10.0 mIU/mL Patient is presumed to be immune to infection with Hepatitis B Virus. Hep B Surface Ab, Qualitative Positive See Note 02/17/2023 9:46 EDT [facility] Comment: Reference Range for Hep B Surface Ab, Qual: Unvaccinated: ??Negative Vaccinated: ??Positive Blood VENOUS BLOOD / Unknown 02/16/2023 12:34 EDT 02/16/2023 21:34 EDT Provider Outr Resulting Lab CHEMISTRY & BLOOD GAS ORDERABLES Performing Organization Address [facility] Co de Phone Number [facility] [address] [place] [address] * HEPATITIS B SURFACE ANTIGEN (02/16/2023 12:34 EDT) Hep B Surface Ag Negative Negative 02/17/2023 10:01 EDT [facility] Blood VENOUS BLOOD / Unknown 02/16/2023 12:34 EDT 02/16/2023 21:34 EDT Provider Outr Resulting Lab CHEMISTRY & BLOOD GAS ORDERABLES Performing Organization Address City/[facility]/ZIP Co de Phone Number [facility] [address] [place] [address] * (ABNORMAL) HEPATITIS A TOTAL ANTIBODY W REFLEX (02/16/2023 12:34 EDT) Hepatitis A Antibody, Total Positive(A ) Negative 02/17/2023 11:59 EDT [facility] Blood VENOUS BLOOD / Unknown 02/16/2023 12:34 EDT 02/16/2023 21:34 EDT Narrative [facility] - 02/17/2023 11:59 EDT The result of this assay can be falsely elevated (Positive) due to the consumption of Biotin. Provider Outr Resulting Lab CHEMISTRY & BLOOD GAS ORDERABLES Performing Organization Address [facility]/ZIP Co de Phone Number [facility] [address] [place] [address] documented in this encounter Visit Diagnoses Not on filedocumented in this encounter Care Teams Donkey Doctor Relationship Specialty Start Date End Date Anthony Tobias MD PCP - General 03/29/10 02/17/23 Quynh Louie MD [address] [place] [phone] PCP - General 02/18/23 Sancho Hampton LICSW [employer] Infectious Disease 03/31/23 documented as of this encounter
--- OUTSIDE RECORDS SUMMARY | 2024-05-23 19:47 | XMS_ITS | Encounter Summary ---
Author Organization [facility] Address [address] [place] [address] Care Team Providers Care Chief Airport Guide Name Role Phone Quynh Louie MD Primary Care Provider [phone] Sancho Hampton Unavailable Unavailable Encounter Details Date Type Department Care Team (Late st Contact Info) Description 11/21/2023 Lab Requisition [facility] Pathology & Laboratory Medicine - [address] [address] Outr Resulting Lab, Provider Social History Tobacco [...] Info) Description 08/25/2024 13:20 EST Office Visit [facility] Infectious Disease [address] [address] Benito Arora MD [address] [place] [phone] documented as of this encounter Procedures Procedure Name Priority Date/Time Associated Diagnosis Comments CHLAMYDIA/N. GONORRHOEAE AMPLIFIED NUCLEIC ACID Routine 11/20/2023 8:33 EDT documented in this encounter Results * CHLAMYDIA/N. GONORRHOEAE AMPLIFIED RNA (11/20/2023 8:33 EDT) Neisseria gonorrhoeae Result Negative Negative 11/23/2023 12:53 EDT [facility] Chlamydia trachomatis Result Negative Negative 11/23/2023 12:53 EDT [facility] Urine URINE / Unknown 11/20/2023 8 :33 EDT 11/22/2023 16:05 EDT Provider Outr Resulting Lab MICROBIOLOGY - GENERAL ORDERABLES [facility] [address] [place] [address] documented in this encounter Visit Diagnoses Not on filedocumented in this encounter Care Teams Chief Airport Guide Relationship Specialty Start Date End Date Quynh Louie MD [address] [place] [phone] PCP - General 02/18/23 Sancho Hampton LICSW Professional Bass Fisher Infectious Disease 03/31/23 documented as of this encounter
--- OUTSIDE RECORDS SUMMARY | 2024-05-23 19:47 | XMS_ITS | Encounter Summary ---
Author Organization [facility] Address [address] [place] [address] Care Team Providers Care Log Buncher Name Role Phone Anthony Tobias MD Primary Care Provider Quynh Martinez MD Primary Care Provider [phone] Sancho Hampton Unavailable Unavailable Encounter Details Date Type Department Care Team (Late st Contact Info) Description 02/16/2023 Lab Requisition [facility] Pathology & Laboratory Medicine - [address] [address] Outr Resulting Lab, Provider Social History Tobacco [...] Description 08/25/2024 13:20 EST Office Visit [facility] Infectious Disease [address] [address] Benito Arora MD [address] [place] [phone] documented as of this encounter Procedures Procedure Name Priority Date/Time Associated Diagnosis Comments T CELL SUBSETS Routine 02/16/2023 12:34 EDT HIV 1 RNA QUANTITATION Routine 02/16/2023 12:34 EDT documented in this encounter Results * (ABNORMAL) HIV 1 RNA QUANTITATION (02/16/2023 12:34 EDT) [facility] HIV RNA Detection, Qual Detected( A) Undetected copies/mL 02/19/2023 12:18 EDT [facility] HIV 1 RNA Quant 216(H) Undetected copies/mL 02/19/2023 12:18 EDT [facility] Blood VENOUS BLOOD / Unknown 02/16/2023 12:34 EDT 02/16/2023 21:35 EDT Narrative [facility] - 02/19/2023 12:18 EDT The quantification range of this assay is 20 IU/mL to 10,000,000 IU/mL. ??Testing was performed using the Aye HIV test ([employer] with the aye [employer] System. Provider Outr Resulting Lab CHEMISTRY & BLOOD GAS ORDERABLES [facility] [address] [place] [address] * T CELL SUBSETS (02/16/2023 12:34 EDT) [facility] % CD3 78 56 - 84 % 02/17/2023 16:18 [facility] % CD4 42 31 - 64 % 02/17/2023 16:18 [facility] % CD8 33 9 - 39 % 02/17/2023 16:18 [facility] Absolute CD3 1,282 840 - 2,669 Cells/uL 02/17/2023 16:18 [facility] Absolute CD4 692 488 - 1,734 Cells/uL 02/17/2023 16:18 [facility] Absolute CD8 544 154 - 1,097 Cells/uL 02/17/2023 16:18 [facility] 4/8 Ratio 1.27 >=0.90 02/17/2023 16:18 [facility] Blood VENOUS BLOOD / Unknown 02/16/2023 12:34 EDT 02/16/2023 21:35 EDT Provider Outr Resulting Lab IMMUNOLOGY A ND SEROLOGY ORDERABLES [facility] [address] [place] [address] documented in this encounter Visit Diagnoses Not on filedocumented in this encounter Care Teams Log Buncher Relationship Specialty Start Date End Date Anthony Tobias MD PCP - General 03/29/10 02/17/23 Quynh Louie MD [address] [place] [phone] PCP - General 02/18/23 Sancho Hampton, STEPHANIE Plastics Patternmaker Infectious Disease 03/31/23 documented as of this encounter
--- OUTSIDE RECORDS SUMMARY | 2024-05-23 19:47 | XMS_ITS | Encounter Summary ---
Author Organization [facility] Address [address] [place] [address] Care Team Providers Care Customer Quality Specialist Name Role Phone Quynh Louie MD Primary Care Provider [phone] Sancho Hampton Unavailable Unavailable Reason for Visit * Reason Comments Medications Refill Encounter Details Date Type Department Care Team (Late st Contact Info) Description 04/22/2023 Refill [facility] Infectious Disease [address] [address] Scarlet Bolivar NP [address] [facility], [address] [place] [address] Medications Refill Social History Tobacco [...] TABLET BY MOUTH EVERY DAY 30 Tablet 04/22/2023 05/22/2023 documented in this encounter Plan of Treatment Upcoming Encounters Date Type Department Care Team (Late st Contact Info) Description 08/25/2024 13:20 EST Office Visit [facility] Infectious [address] [address] Benito Arora MD [address] [place] [phone] documented as of this encounter Visit Diagnoses Not on filedocumented in this encounter Discontinued Medications Medication Sig Discontinue Reason Start Date End Da te BIKTARVY 50-200-25 mg per tablet TAKE ONE TABLET BY MOUTH EVERY DAY 03/24/2023 04/22/2023 documented as of this encounter Care Teams Customer Quality Specialist Relationship Specialty Start Date End Date Quynh Louie MD [address] [place] [phone] PCP - General 02/18/23 Sancho Hampton ACCOUNTING SYSTEMS MANAGER Lpta Infectious Disease 03/31/23 documented as of this encounter
--- OUTSIDE RECORDS SUMMARY | 2024-05-23 19:48 | XMS_ITS | Encounter Summary ---
Author Organization [facility] Address [address] [place] [address] Care Team Providers Care Cardiac Technician Name Role Phone Anthony Tobias MD Primary Care Provider Quynh Martinez MD Primary Care Provider [phone] Sancho Hampton Unavailable Unavailable Encounter Details Date Type Department Care Team (Late st Contact Info) Description 08/24/2021 Lab Requisition [facility] Pathology & Laboratory Medicine - [address] [address] Outr Resulting Lab, Provider Social History Tobacco [...] Description 08/25/2024 13:20 EST Office Visit [facility] Infectious Disease - [address] [address] Benito Arora MD [address] [place] [phone] documented as of this encounter Procedures Procedure Name Priority Date/Time Associated Diagnosis Comments SYPHILIS SEROLOGY Routine 08/23/2021 11: 50 EST documented in this encounter Results * SYPHILIS SEROLOGY (08/23/2021 11:50 EST) Syphilis Serology Negative Negative 08/26/2021 10:27 EST [facility] Blood VENOUS BLOOD / Unknown 08/23/2021 11:50 EST 08/25/2021 16:43 EST Provider Outr Resulting Lab IMMUNOLOGY A ND SEROLOGY ORDERABLES [facility] [address] [place] [address] documented in this encounter Visit Diagnoses Not on filedocumented in this encounter Care Teams Cardiac Technician Relationship Specialty Start Date End Date Anthony Tobias MD PCP - General 03/29/10 02/17/23 Quynh Louie MD [address] [place] [phone] PCP - General 02/18/23 Sancho Hampton, LEAD CASTER Rn Building Infectious Disease 03/31/23 documented as of this encounter
--- OUTSIDE RECORDS SUMMARY | 2024-05-23 19:48 | XMS_ITS | Encounter Summary ---
Author Organization [facility] Address [address] [place] [address] Care Team Providers Care Barmaid Name Role Phone Anthony Tobias MD Primary Care Provider Quynh Martinez MD Primary Care Provider [phone] Sancho Hampton Unavailable Unavailable Encounter Details Date Type Department Care Team (Late st Contact Info) Description 04/13/2021 Lab Requisition [facility] Pathology & Laboratory Medicine - [address] [address] Outr Resulting Lab, Provider Social History Tobacco [...] Info) Description 08/25/2024 13:20 EST Office Visit [facility] Infectious Disease [address] [address] Benito Arora MD [address] [place] [phone] documented as of this encounter Procedures Procedure Name Priority Date/Time Associated Diagnosis Comments CHLAMYDIA/N. GONORRHOEAE AMPLIFIED NUCLEIC ACID Routine 04/12/2021 13:07 EDT documented in this encounter Results * (ABNORMAL) CHLAMYDIA/N. GONORRHOEAE AMPLIFIED RNA (04/12/2021 13:07 EDT) Neisseria gonorrhoeae Result Positive(A) Negative 04/15/2021 15:20 EDT [facility] Chlamydia trachomatis Result Negative Negative 04/15/2021 15:20 EDT [facility] Urine URINE / Unknown 04/12/2021 1 3:07 EDT 04/14/2021 17:09 EDT Provider Outr Resulting Lab MICROBIOLOGY - GENERAL ORDERABLES [facility] [address] [place] [address] documented in this encounter Visit Diagnoses Not on filedocumented in this encounter Care Teams Barmaid Relationship Specialty Start Date End Date Anthony Tobias MD PCP - General 03/29/10 02/17/23 Quynh Louie MD [address] [place] [phone] PCP - General 02/18/23 Sancho Hampton, SUBMARINE CABLE EQUIPMENT TECHNICIAN Organ Pipe Voicer Infectious Disease 03/31/23 documented as of this encounter
--- OUTSIDE RECORDS SUMMARY | 2024-05-23 19:48 | XMS_ITS | Encounter Summary ---
Author Organization [facility] Address [address] [place] [address] Care Team Providers Care Mangle Roll Operator Name Role Phone Anthony Tobias MD Primary Care Provider Quynh Martinez MD Primary Care Provider [phone] Sancho Hampton Unavailable Unavailable Encounter Details Date Type Department Care Team (Late st Contact Info) Description 10/25/2021 Lab Requisition [facility] Pathology & Laboratory Medicine - [address] [address] Outr Resulting Lab, Provider Social History Tobacco [...] [facility] [address] [address] Benito Arora MD [address] [place] [phone] documented as of this encounter Procedures Procedure Name Priority Date/Time Associated Diagnosis Comments HIV 1/2 ANTIGEN AND ANTIBODY, 4TH GENERATION Routine 10/25/2021 11:00 EST documented in this encounter Results * HIV 1/2 ANTIGEN AND ANTIBODY, 4TH GENERATION (10/25/2021 11:00 EST) HIV 1 and 2 Antibody/p24 Antigen, 4th Generation Negative Negative 10/28/2021 11:47 EST [facility] Comment:If acute HIV-1 infec tion is suspected in a high risk patient, submit plasma specimen for HIV-1 RNA quantitation test. Blood VENOUS BLOOD / Unknown 10/25/2021 11:00 EST 10/25/2021 21:38 EST Narrative [facility] - 10/28/2021 11:47 EST Fourth Generation assay performed on the Siemens Yapaur XPT. Provider Outr Resulting Lab IMMUNOLOGY A ND SEROLOGY ORDERABLES [facility] [address] [place] [address] documented in this encounter Visit Diagnoses Not on filedocumented in this encounter Care Teams Mangle Roll Operator Relationship Specialty Start Date End Date Anthony Tobias MD PCP - General 03/29/10 02/17/23 Quynh Louie MD [address] [place] [phone] PCP - General 02/18/23 Sancho Hampton LICSW Body Liner Infectious Disease 03/31/23 documented as of this encounter
--- OUTSIDE RECORDS SUMMARY | 2024-05-23 19:48 | XMS_ITS | Encounter Summary ---
Author Organization [facility] Address [address] [place] [address] Care Team Providers Care Pharmacy Helper Name Role Phone Anthony Tobias MD Primary Care Provider Quynh Martinez MD Primary Care Provider [phone] Sancho Hampton Unavailable Unavailable Encounter Details Date Type Department Care Team (Late st Contact Info) Description 05/10/2021 Lab Requisition [facility] Pathology & Laboratory Medicine - [address] [address] Outr Resulting Lab, Provider Social History Tobacco [...] Info) Description 08/25/2024 13:20 EST Office Visit [facility] Infectious Disease [address] [address] Benito Arora MD [address] [place] [phone] documented as of this encounter Procedures Procedure Name Priority Date/Time Associated Diagnosis Comments HIV 1/2 ANTIGEN AND ANTIBODY, 4TH GENERATION Routine 05/10/2021 13:48 EDT documented in this encounter Results * HIV 1/2 ANTIGEN AND ANTIBODY, 4TH GENERATION (05/10/2021 13:48 EDT) HIV 1 and 2 Antibody/p24 Antigen, 4th Generation Negative Negative 05/13/2021 11:15 EDT [facility] Comment: If acute HIV-1 infection is suspected in a high risk ??patient, submit plasma specimen for HIV-1 RNA quantitation test. Fourth Generation assay performed on the Siemens Centaur. Blood VENOUS BLOOD / Unknown 05/10/2021 13:48 EDT 05/10/2021 21:11 EDT Provider Outr Resulting Lab IMMUNOLOGY A ND SEROLOGY ORDERABLES [facility] [address] [place] [address] documented in this encounter Visit Diagnoses Not on filedocumented in this encounter Care Teams Pharmacy Helper Relationship Specialty Start Date End Date Anthony Tobias MD PCP - General 03/29/10 02/17/23 Quynh Louie MD [address] [place] [phone] PCP - General 02/18/23 Sancho Hampton LICSW Slitter Processed Film Infectious Disease 03/31/23 documented as of this encounter
--- OUTSIDE RECORDS SUMMARY | 2024-05-23 19:48 | XMS_ITS | Encounter Summary ---
Author Organization [facility] Address [address] [place] [address] Care Team Providers Care Chief Engineer Name Role Phone Anthony Tobias MD Primary Care Provider Quynh Martinez MD Primary Care Provider [phone] Sancho Hampton Unavailable Unavailable Encounter Details Date Type Department Care Team (Late st Contact Info) Description 04/29/2020 Lab Requisition [facility] Pathology & Laboratory Medicine - [address] [address] Outr Resulting Lab, Provider Social History Tobacco [...] Info) Description 08/25/2024 13:20 EST Office Visit [facility] Infectious Disease [address] [address] Benito Arora MD [address] [place] [phone] documented as of this encounter Procedures Procedure Name Priority Date/Time Associated Diagnosis Comments CHLAMYDIA/N. GONORRHOEAE AMPLIFIED NUCLEIC ACID Routine 04/27/2020 14:15 EDT documented in this encounter Results * CHLAMYDIA/N. GONORRHOEAE AMPLIFIED RNA (04/27/2020 14:15 EDT) Neisseria gonorrhoeae Result Negative Negative 04/30/2020 14:03 EDT [facility] Chlamydia trachomatis Result Negative Negative 04/30/2020 14:03 EDT [facility] Urine URINE / Unknown 04/27/2020 1 4:15 EDT 04/29/2020 20:24 EDT Provider Outr Resulting Lab MICROBIOLOGY - GENERAL ORDERABLES [facility] [address] [place] [address] documented in this encounter Visit Diagnoses Not on filedocumented in this encounter Care Teams Chief Engineer Relationship Specialty Start Date End Date Anthony Tobias MD PCP - General 03/29/10 02/17/23 Quynh Louie MD [address] [place] [phone] PCP - General 02/18/23 Sancho Hampton, JOURNALISTS AND OTHER WRITERS Supplier Relationship Director Infectious Disease 03/31/23 documented as of this encounter
--- OUTSIDE RECORDS SUMMARY | 2024-05-23 19:48 | XMS_ITS | Encounter Summary ---
Author Organization [facility] Address [address] [place] [address] Care Team Providers Care Cell Builder Name Role Phone Anthony Tobias MD Primary Care Provider Quynh Martinez MD Primary Care Provider [phone] Sancho Hampton Unavailable Unavailable Encounter Details Date Type Department Care Team (Late st Contact Info) Description 05/10/[address] [facility] Pathology & Laboratory Medicine - [address] [address] Outr Resulting Lab, Provider Social History Tobacco [...] Description 08/25/2024 13:[address] [facility] Infectious Disease [address] [address] Benito Arora MD [address] [place] [phone] documented as of this encounter Procedures Procedure Name Priority Date/Time Associated Diagnosis Comments SYPHILIS SEROLOGY Routine 05/10/2021 13: 48 EDT documented in this encounter Results * SYPHILIS SEROLOGY (05/10/2021 13:48 EDT) Syphilis Serology Negative Negative 05/14/2021 11:32 EDT [facility] Blood VENOUS BLOOD / Unknown 05/10/2021 13:48 EDT 05/10/2021 21:11 EDT Provider Outr Resulting Lab IMMUNOLOGY A ND SEROLOGY ORDERABLES [facility] [address] [place] [address] documented in this encounter Visit Diagnoses Not on filedocumented in this encounter Care Teams Cell Builder Relationship Specialty Start Date End Date Anthony Tobias MD PCP - General 03/29/10 02/17/23 Quynh Louie MD [address] [place] [phone] PCP - General 02/18/23 Sancho Hampton CIVIL ENGINEERING ASSISTANT Groundskeeper Supervisor Infectious Disease 03/31/23 documented as of this encounter
--- OUTSIDE RECORDS SUMMARY | 2024-05-23 19:48 | XMS_ITS | Encounter Summary ---
Author Organization [facility] Address [address] [place] [address] Care Team Providers Care Credentialing Manager Name Role Phone Anthony Tobias MD Primary Care Provider Quynh Martinez MD Primary Care Provider [phone] Sancho Hampton Unavailable Unavailable Encounter Details Date Type Department Care Team (Late st Contact Info) Description 10/25/2021 Lab Requisition [facility] Pathology & Laboratory Medicine - [address] [address] Outr Resulting Lab, Provider Social History Tobacco [...] Info) Description 08/25/2024 13:20 EST Office Visit [facility] Infectious Disease - [address] [address] Benito Arora MD [address] [place] [phone] documented as of this encounter Procedures Procedure Name Priority Date/Time Associated Diagnosis Comments SYPHILIS SEROLOGY Routine 10/25/2021 11: 00 EST documented in this encounter Results * SYPHILIS SEROLOGY (10/25/2021 11:00 EST) Syphilis Serology Negative Negative 10/28/2021 11:[address] [facility] Blood VENOUS BLOOD / Unknown 10/25/2021 11:00 EST 10/25/2021 21:38 EST Provider Outr Resulting Lab IMMUNOLOGY A ND SEROLOGY ORDERABLES [facility] [address] [place] [address] documented in this encounter Visit Diagnoses Not on filedocumented in this encounter Care Teams Credentialing Manager Relationship Specialty Start Date End Date Anthony Tobias MD PCP - General 03/29/10 02/17/23 Quynh Louie MD [address] [place] [phone] PCP - General 02/18/23 Sancho Hampton, COMMUNITY OUTREACH DIRECTOR Seasonal Retail Merchandiser Infectious Disease 03/31/23 documented as of this encounter
--- OUTSIDE RECORDS SUMMARY | 2024-05-23 19:48 | XMS_ITS | Encounter Summary ---
Author Organization [facility] Address [address] [place] [address] Care Team Providers Care Metal Framer Name Role Phone Anthony Tobias MD Primary Care Provider Quynh Martinez MD Primary Care Provider [phone] Sancho Hampton Unavailable Unavailable Encounter Details Date Type Department Care Team (Late st Contact Info) Description 04/29/2020 Lab Requisition [facility] Pathology & Laboratory Medicine - [address] [address] Outr Resulting Lab, Provider Social History Tobacco [...] Info) Description 08/25/2024 13:20 EST Office Visit [facility] Infectious Disease [address] [address] Benito Arora MD [address] [place] [phone] documented as of this encounter Procedures Procedure Name Priority Date/Time Associated Diagnosis Comments HIV 1/2 ANTIGEN AND ANTIBODY, 4TH GENERATION Routine 04/27/2020 14:15 EDT documented in this encounter Results * HIV 1/2 ANTIGEN AND ANTIBODY, 4TH GENERATION (04/27/2020 14:15 EDT) HIV 1 and 2 Antibody/p24 Antigen, 4th Generation Negative Negative 04/30/2020 10:30 EDT [facility] Comment: If acute HIV-1 infection is suspected in a high risk ??patient, submit plasma specimen for HIV-1 RNA quantitation test. Fourth Generation assay performed on the Siemens Centaur. Blood VENOUS BLOOD / Unknown 04/27/2020 14:15 EDT 04/29/2020 17:18 EDT Provider Outr Resulting Lab IMMUNOLOGY A ND SEROLOGY ORDERABLES [facility] [address] [place] [address] documented in this encounter Visit Diagnoses Not on filedocumented in this encounter Care Teams Metal Framer Relationship Specialty Start Date End Date Anthony Tobias MD PCP - General 03/29/10 02/17/23 Quynh Louie MD [address] [place] [phone] PCP - General 02/18/23 Sancho Hampton LAPPING MACHINE OPERATOR Salt Machine Operator Infectious Disease 03/31/23 documented as of this encounter
--- OUTSIDE RECORDS SUMMARY | 2024-05-23 19:48 | XMS_ITS | Encounter Summary ---
Author Organization [facility] Address [address] [place] [address] Care Team Providers Care Plasterer Journeyman Name Role Phone Anthony Tobias MD Primary Care Provider Quynh Martinez MD Primary Care Provider [phone] Sancho Hampton Unavailable Unavailable Encounter Details Date Type Department Care Team (Late st Contact Info) Description 02/10/2023 Lab Requisition [facility] Pathology & Laboratory Medicine - [address] [address] Outr Resulting Lab, Provider Social History Tobacco [...] 08/25/2024 13:20 EST Office Visit [facility] Infectious Disease [address] [address] Benito Arora MD [address] [place] [phone] documented as of this encounter Procedures Procedure Name Priority Date/Time Associated Diagnosis Comments SYPHILIS SEROLOGY Routine 02/09/2023 12: 12 EDT HEPATITIS C AB W REFLEX TO HCV RNA BY PCR Routine 02/09/2023 12:12 EDT documented in this encounter Results * SYPHILIS SEROLOGY (02/09/2023 12:12 EDT) Syphilis Serology Negative Negative 02/11/2023 11:[address] [facility] Blood VENOUS BLOOD / Unknown 02/09/2023 12:12 EDT 02/10/2023 17:27 EDT Provider Outr Resulting Lab IMMUNOLOGY A ND SEROLOGY ORDERABLES Performing Organization Address City/[facility]/ZIP Co de Phone Number [facility] [address] [place] [address] * HEPATITIS C AB W REFLEX TO HCV RNA BY PCR (02/09/2023 12:12 EDT) Hep C Antibody Negative Negative 02/11/2023 10:[address] [facility] Blood VENOUS BLOOD / Unknown 02/09/2023 12:12 EDT 02/10/2023 17:27 EDT Provider Outr Resulting Lab CHEMISTRY & BLOOD GAS ORDERABLES Performing Organization Address City/[facility]/ZIP Co de Phone Number [facility] [address] [place] [address] documented in this encounter Visit Diagnoses Not on filedocumented in this encounter Care Teams Plasterer Journeyman Relationship Specialty Start Date End Date Anthony Tobias MD PCP - General 03/29/10 02/17/23 Quynh Louie MD [address] [place] [phone] PCP - General 02/18/23 Sancho Hampton, [facility] Patroller Infectious Disease 03/31/23 documented as of this encounter
--- OUTSIDE RECORDS SUMMARY | 2024-05-23 19:48 | XMS_ITS | Encounter Summary ---
Author Organization [facility] Address [address] [place] [address] Care Team Providers Care Basket Mender Name Role Phone Anthony Tobias MD Primary Care Provider Quynh Martinez MD Primary Care Provider [phone] Sancho Hampton Unavailable Unavailable Encounter Details Date Type Department Care Team (Late st Contact Info) Description 01/17/2021 Lab Requisition [facility] Pathology & Laboratory Medicine - [address] [address] Outr Resulting Lab, Provider Social History Tobacco [...] Info) Description 08/25/2024 13:20 EST Office Visit [facility] Infectious Disease [address] [address] Benito Arora MD [address] [place] [phone] documented as of this encounter Procedures Procedure Name Priority Date/Time Associated Diagnosis Comments CHLAMYDIA/N. GONORRHOEAE AMPLIFIED NUCLEIC ACID Routine 01/16/2021 12:04 EDT documented in this encounter Results * (ABNORMAL) CHLAMYDIA/N. GONORRHOEAE AMPLIFIED RNA (01/16/2021 12:04 EDT) Neisseria gonorrhoeae Result Positive(A) Negative 01/18/2021 15:49 EDT [facility] Chlamydia trachomatis Result Negative Negative 01/18/2021 15:49 EDT [facility] Swab ENTIRE URETHRA / Unknown 01/16/2021 12:04 EDT 01/17/2021 17:57 EDT Provider Outr Resulting Lab MICROBIOLOGY - GENERAL ORDERABLES [facility] [address] [place] [address] documented in this encounter Visit Diagnoses Not on filedocumented in this encounter Care Teams Basket Mender Relationship Specialty Start Date End Date Anthony Tobias MD PCP - General 03/29/10 02/17/23 Quynh Louie MD [address] [place] [phone] PCP - General 02/18/23 Sancho Hampton, NIPPLE MACHINE OPERATOR Elevating Grader Operator Infectious Disease 03/31/23 documented as of this encounter
--- OUTSIDE RECORDS SUMMARY | 2024-05-23 19:48 | XMS_ITS | Encounter Summary ---
Author Organization [facility] Address [address] [place] [address] Care Team Providers Care Qi Specialist Name Role Phone Anthony Tobias MD Primary Care Provider Quynh Martinez MD Primary Care Provider [phone] Sancho Hampton Unavailable Unavailable Encounter Details Date Type Department Care Team (Late st Contact Info) Description 05/11/2021 Lab Requisition [facility] Pathology & Laboratory Medicine - [address] [address] Outr Resulting Lab, Provider Social History Tobacco [...] Info) Description 08/25/2024 13:20 EST Office Visit [facility] Infectious Disease [address] [address] Benito Arora MD [address] [place] [phone] documented as of this encounter Procedures Procedure Name Priority Date/Time Associated Diagnosis Comments CHLAMYDIA/N. GONORRHOEAE AMPLIFIED NUCLEIC ACID Routine 05/10/2021 13:00 EDT documented in this encounter Results * CHLAMYDIA/N. GONORRHOEAE AMPLIFIED RNA (05/10/2021 13:00 EDT) Neisseria gonorrhoeae Result Negative Negative 05/13/2021 14:36 EDT [facility] Chlamydia trachomatis Result Negative Negative 05/13/2021 14:36 EDT [facility] Urine URINE / Unknown 05/10/2021 1 3:00 EDT 05/12/2021 16:52 EDT Provider Outr Resulting Lab MICROBIOLOGY - GENERAL ORDERABLES [facility] [address] [place] [address] documented in this encounter Visit Diagnoses Not on filedocumented in this encounter Care Teams Qi Specialist Relationship Specialty Start Date End Date Anthony Tobias MD PCP - General 03/29/10 02/17/23 Quynh Louie MD [address] [place] [phone] PCP - General 02/18/23 Sancho Hampton GRAVEL MACHINE OPERATOR Head Rigger Infectious Disease 03/31/23 documented as of this encounter
--- OUTSIDE RECORDS SUMMARY | 2024-05-23 19:48 | XMS_ITS | Encounter Summary ---
Author Organization [facility] Address [address] [place] [address] Care Team Providers Care Allocations Clerk Name Role Phone Anthony Tobias MD Primary Care Provider Quynh Martinez MD Primary Care Provider [phone] Sancho Hampton Unavailable Unavailable Encounter Details Date Type Department Care Team (Late st Contact Info) Description 01/18/2021 Lab Requisition [facility] Pathology & Laboratory Medicine - [address] [address] Outr Resulting Lab, Provider Social History Tobacco [...] Visit [facility] Infectious Disease [address] [address] Benito Arora MD [address] [place] [phone] documented as of this encounter Procedures Procedure Name Priority Date/Time Associated Diagnosis Comments SYPHILIS SEROLOGY Routine 01/18/2021 11: 19 EDT documented in this encounter Results * SYPHILIS SEROLOGY (01/18/2021 11:19 EDT) Syphilis Serology Negative Negative 01/21/2021 11:50 EDT [facility] Blood VENOUS BLOOD / Unknown 01/18/2021 11:19 EDT 01/18/2021 20:49 EDT Provider Outr Resulting Lab IMMUNOLOGY A ND SEROLOGY ORDERABLES [facility] [address] [place] [address] documented in this encounter Visit Diagnoses Not on filedocumented in this encounter Care Teams Allocations Clerk Relationship Specialty Start Date End Date Anthony Tobias MD PCP - General 03/29/10 02/17/23 Quynh Louie MD [address] [place] [phone] PCP - General 02/18/23 Sancho Hampton THREAD REELER Commercial Real Estate Lender Infectious Disease 03/31/23 documented as of this encounter
--- OUTSIDE RECORDS SUMMARY | 2024-05-23 19:48 | XMS_ITS | Encounter Summary ---
Author Organization [facility] Address [address] [place] [address] Care Team Providers Care Block Cleaner Name Role Phone Anthony Tobias MD Primary Care Provider Quynh Martinez MD Primary Care Provider Sancho Hampton Unavailable Unavailable Encounter Details Date Type Department Care Team (Late st Contact Info) Description 08/24/2021 Lab Requisition [facility] Pathology & Laboratory Medicine - [address] [address] Outr Resulting Lab, Provider Social History Tobacco [...] Info) Description 08/25/2024 13:20 EST Office Visit [facility] Infectious Disease - [address] [address] Benito Arora MD [address] [place] [phone] documented as of this encounter Procedures Procedure Name Priority Date/Time Associated Diagnosis Comments CHLAMYDIA/N. GONORRHOEAE AMPLIFIED NUCLEIC ACID Routine 08/23/2021 11:50 EST documented in this encounter Results * CHLAMYDIA/N. GONORRHOEAE AMPLIFIED RNA (08/23/2021 11:50 EST) Neisseria gonorrhoeae Result Negative Negative 08/26/2021 15:03 EST [facility] Chlamydia trachomatis Result Negative Negative 08/26/2021 15:03 EST [facility] Urine 08/23/2021 11:5 0 EST 08/25/2021 18:59 EST Provider Outr Resulting Lab MICROBIOLOGY - GENERAL ORDERABLES [facility] [address] [place] [address] documented in this encounter Visit Diagnoses Not on filedocumented in this encounter Care Teams Block Cleaner Relationship Specialty Start Date End Date Anthony Tobias MD PCP - General 03/29/10 02/17/23 Quynh Louie MD [address] [place] [phone] PCP - General 02/18/23 Sancho Hampton, SAFETY EQUIPMENT TESTER Hr Business Partner Consultant Infectious Disease 03/31/23 documented as of this encounter
--- OUTSIDE RECORDS SUMMARY | 2024-05-23 19:48 | XMS_ITS | Encounter Summary ---
Author Organization [facility] Address [address] [place] [address] Care Team Providers Care [place] Boatman Name Role Phone Anthony Tobias MD Primary Care Provider Quynh Martinez MD Primary Care Provider [phone] Sancho Hampton Unavailable Unavailable Encounter Details Date Type Department Care Team (Late st Contact Info) Description 01/18/2021 Lab Requisition [facility] Pathology & Laboratory Medicine - [address] [address] Outr Resulting Lab, Provider Social History Tobacco [...] [facility] Infectious Disease [address] [address] Benito Arora MD [address] [place] [phone] documented as of this encounter Procedures Procedure Name Priority Date/Time Associated Diagnosis Comments HEPATITIS C AB W REFLEX TO HCV RNA BY PCR Routine 01/18/2021 11:19 EDT HEPATITIS B CORE ANTIBODY (TOTAL) Routine 01/18/2021 11:19 EDT HEPATITIS B SURFACE ANTIGEN Routine 01/18/2021 11:19 EDT documented in this encounter Results * HEPATITIS B CORE ANTIBODY (TOTAL) (01/18/2021 11:19 EDT) Hepatitis B Core Ab, Total Negative Negative 01/21/2021 10:55 EDT [facility] Blood VENOUS BLOOD / Unknown 01/18/2021 11:19 EDT 01/18/2021 20:49 EDT Provider Outr Resulting Lab CHEMISTRY & BLOOD GAS ORDERABLES [facility] [address] [place] [address] * HEPATITIS B SURFACE ANTIGEN (01/18/2021 11:19 EDT) Hep B Surface Ag Negative Negative 01/21/2021 10:20 EDT [facility] Blood VENOUS BLOOD / Unknown 01/18/2021 11:19 EDT 01/18/2021 20:49 EDT Provider Outr Resulting Lab CHEMISTRY & BLOOD GAS ORDERABLES Performing Organization Address City/[facility]/ZIP Co de Phone Number [facility] [address] [place] [id number] * HEPATITIS C AB W REFLEX TO HCV RNA BY PCR (01/18/2021 11:19 EDT) Hep C Antibody Negative Negative 01/21/2021 11:09 EDT [facility] Blood VENOUS BLOOD / Unknown 01/18/2021 11:19 EDT 01/18/2021 20:49 EDT Provider Outr Resulting Lab CHEMISTRY & BLOOD GAS ORDERABLES [facility] [address] [place] [address] documented in this encounter Visit Diagnoses Not on filedocumented in this encounter Care Teams [place] Boatman Relationship Specialty Start Date End Date Anthony Tobias MD PCP - General 03/29/10 02/17/23 Quynh Louie MD [address] [place] [phone] PCP - General 02/18/23 Sancho Hampton, [facility] School Counselor Infectious Disease 03/31/23 documented as of this encounter
--- OUTSIDE RECORDS SUMMARY | 2024-05-23 19:48 | XMS_ITS | Encounter Summary ---
Author Organization [facility] Address [address] [place] [address] Care Team Providers Care Director Medicare Sales Name Role Phone Anthony Tobias MD Primary Care Provider Quynh Martinez MD Primary Care Provider [phone] Sancho Hampton Unavailable Unavailable Encounter Details Date Type Department Care Team (Late st Contact Info) Description 04/29/2020 Lab Requisition [facility] Pathology & Laboratory Medicine - [address] [address] Outr Resulting Lab, Provider Social History Tobacco [...] Info) Description 08/25/2024 13:20 EST Office Visit [facility] Infectious Disease [address] [address] Benito Arora MD [address] [place] [phone] documented as of this encounter Procedures Procedure Name Priority Date/Time Associated Diagnosis Comments ACUTE HEPATITIS PROFILE Routine 04/27/2020 14:15 EDT HEPATITIS B SURFACE ANTIBODY Routine 04/27/2020 14:15 EDT documented in this encounter Results * HEPATITIS B SURFACE ANTIBODY (04/27/2020 14:15 EDT) Hep B Surface Ab, Quantitative 881.1 See Note mIU/mL 04/30/2020 9:48 EDT [facility] Comment: Reference Range for Hep B Surface Ab, Quant: Positive: >= 10.0 mIU/mL Negative: ??< 10.0 mIU/mL Patient is presumed to be immune to infection with Hepatitis B Virus. Hep B Surface Ab, Qualitative Positive See Note 04/30/2020 9:48 EDT [facility] Comment: Reference Range for Hep B Surface Ab, Qual: Unvaccinated: ??Negative Vaccinated: ??Positive Blood VENOUS BLOOD / Unknown 04/27/2020 14:15 EDT 04/29/2020 17:18 EDT Provider Outr Resulting Lab CHEMISTRY & BLOOD GAS ORDERABLES Performing Organization Address [facility] de Phone Number [facility] [address] [place] [address] * ACUTE HEPATITIS PROFILE (04/27/2020 14:15 EDT) Hep B Surface Ag Negative Negative 04/30/2020 11:24 EDT [facility] Hep C Antibody Negative Negative 04/30/2020 11:24 EDT [facility] Hepatitis A Antibody, IgM Negative Negative 04/30/2020 11:24 EDT [facility] Comment:The results of this assay can be falsely lowered due to the consumption of Biotin. Hepatitis B Core Ab, Total Negative Negative 04/30/2020 11:24 EDT [facility] Blood VENOUS BLOOD / Unknown 04/27/2020 14:15 EDT 04/29/2020 17:18 EDT Provider Outr Resulting Lab CHEMISTRY & BLOOD GAS ORDERABLES Performing Organization Address [facility] Co de Phone Number [facility] [address] [place] [address] documented in this encounter Visit Diagnoses Not on filedocumented in this encounter Care Teams Director Medicare Sales Relationship Specialty Start Date End Date Anthony Tobias MD PCP - General 03/29/10 02/17/23 Quynh Louie MD [address] [place] [phone] PCP - General 02/18/23 Sancho Hampton, AUTOMOBILE BODY WORKER Metal Reclamation Kettle Tender Infectious Disease 03/31/23 documented as of this encounter
--- OUTSIDE RECORDS SUMMARY | 2024-05-23 19:48 | XMS_ITS | Encounter Summary ---
Author Organization [facility] Address [address] [place] [address] Care Team Providers Care Bookie Name Role Phone Anthony Tobias MD Primary Care Provider Quynh Martinez MD Primary Care Provider [phone] Sancho Hampton Unavailable Unavailable Encounter Details Date Type Department Care Team (Late st Contact Info) Description 08/24/2021 Lab Requisition [facility] Pathology & Laboratory Medicine - [address] [address] Outr Resulting Lab, Provider Social History Tobacco [...] Description 08/25/2024 13:20 EST Office Visit [facility] Infectious Disease - [address] [address] Benito Arora MD [address] [place] [phone] documented as of this encounter Procedures Procedure Name Priority Date/Time Associated Diagnosis Comments HIV 1/2 ANTIGEN AND ANTIBODY, 4TH GENERATION Routine 08/23/2021 11:50 EST documented in this encounter Results * HIV 1/2 ANTIGEN AND ANTIBODY, 4TH GENERATION (08/23/2021 11:50 EST) HIV 1 and 2 Antibody/p24 Antigen, 4th Generation Negative Negative 08/26/2021 10:27 EST [facility] Comment:If acute HIV-1 infec tion is suspected in a high risk patient, submit plasma specimen for HIV-1 RNA quantitation test. Blood VENOUS BLOOD / Unknown 08/23/2021 11:50 EST 08/25/2021 16:43 EST Narrative [facility] - 08/26/2021 10:27 EST Fourth Generation assay performed on the Siemens Proximexaur XPT. Provider Outr Resulting Lab IMMUNOLOGY A ND SEROLOGY ORDERABLES [facility] [address] [place] [address] documented in this encounter Visit Diagnoses Not on filedocumented in this encounter Care Teams Bookie Relationship Specialty Start Date End Date Anthony Tobias MD PCP - General 03/29/10 02/17/23 Quynh Louie MD [address] [place] [phone] PCP - General 02/18/23 Sancho Hampton LICSW Public Finance Specialist Infectious Disease 03/31/23 documented as of this encounter
--- OUTSIDE RECORDS SUMMARY | 2024-05-23 19:48 | XMS_ITS | Encounter Summary ---
Author Organization [facility] Address [address] [place] [address] Care Team Providers Care Sewage Disposal Engineer Name Role Phone Unknown, Provider Primary Care Provider [phone] Encounter Details Date Type Department Care Team (Late st Contact Info) Description 03/26/2010 Results Only [facility] Laboratory Services - [facility] ([facility]) [address] [place], [place] [address] Emilio Bob, [address] [facility] [address] [place], [place] [address] Social History Tobacco Use Types Packs/Day Years Used Date Smoking Tobacco: Never Assessed Sex and Gender Information Value Date Recorded Sex Assigned at Not on file Gender Identity Male 02/18/2023 14:09 EDT Sexual Orientation Not on file documented as of this encounter Plan of Treatment Upcoming Encounters Date Type Department Care Team (Late st Contact Info) Description 08/25/2024 13:20 EST Office Visit [facility] Infectious Disease - [facility] [address] [place] [address] Benito Arora MD [address] [place] [address] documented as of this encounter Procedures Procedure Name Priority Date/Time Associated Diagnosis Comments SURGICAL PATHOLOGY Routine 03/26/2010 0:00 EDT documented in this encounter Results * SURGICAL PATHOLOGY (03/26/2010 0:00 EDT) Pathology Report: SURGICAL PATHOLOGY REPORT ? Reports generated via electronic interface contain original data; ? however they are lacking the format of the original report. ? Caution should be taken when reading/interpreti ng unformatted reports. ? Name: ? PHUONG WISEMAN L ? Accession #: ? [id number] ? : ? 2000 (Age: 9) ??M ? Collect Date: ? 03/26/2010 ? Location: ? [facility] ? Receive Date: ? 03/27/2010 ? Provider: EMILIO BOB DO ? Copy to: NEMO VEGAS MD ? Final Pathologic Diagnosis: ? Appendix, appendectomy: ? 1. ?Acute suppurative appendicitis with marked transmural inflammation ?? and acute serositis. ??See comment. ? 2. ? Two fecaliths are identified. ? Comment: ? Two probe patent defects are identified grossly. ??In the context of the ? marked transmural acute inflammation, these findings are supportive of an ? appendiceal perforation. ??Clinical correlation is essential. ??(Dr. ? Sumanth)/kmm ? Document reviewed and electronically signed by: ? AMISHA GARCIA MD ? Report ??Date: 03/29/2010 16:03 ? By the signature above, the attending physician certifies that he/she has ? personally conducted a gross and/or microscopic examination of the described ? specimens and rendered or confirmed the above diagnosis. ? Specimen(s) Received: ? Appendix ? Clinical History: ? Appendicitis ? Gross Description: ? Received in formalin labelled Matt, Phuong and appendix is an 8.0 cm ?? in length by 1.3 cm in average diameter vermiform appendix, received with ? minimal attached leach-red, markedly indurated and hemorrhagic adipose tissue. ? The resection margin is received stapled closed, and is inked black. ??The serosa is tolentino-leach and diffusely ragged with abundant fibrinopurulent exudate and focal hemorrhage. ??There are two ragged 0.2 x 0.2 cm probe patent defects, 3.8 and 5.8 cm from the proximal resection margin. ??Sectioning reveals a focally tolentino-green and focally white cut surface with a wall thickness ranging from less than 0.1 ?? to 0.5 cm. ??The luminal diameter ranges from pinpoint to 0.8 cm and contains two firm, brown fecaliths near the tip. ??Coffee Shop Attendant sections are submitted in a single cassette. ??/jesús ? End of Report ? [facility] 03/26/2010 03/27/2010 8:2 8 EDT Emilio Bob DO PATHOLOGY ORDER SARAHY [facility] [address] [place] [address] documented in this encounter Visit Diagnoses Not on filedocumented in this encounter Care Teams Sewage Disposal Engineer Relationship Specialty Start Date End Date Unknown, Provider, PCP - General 03/27/10 03/28/10 documented as of this encounter
--- OUTSIDE RECORDS SUMMARY | 2024-05-23 19:48 | XMS_ITS | Encounter Summary ---
Author Organization [facility] Address [address] [place] [address] Care Team Providers Care English Division Chair Name Role Phone Anthony Tobias MD Primary Care Provider Quynh Martinez MD Primary Care Provider [phone] Sancho Hampton Unavailable Unavailable Encounter Details Date Type Department Care Team (Late st Contact Info) Description 10/25/2021 Lab Requisition [facility] Pathology & Laboratory Medicine - [address] [address] Outr Resulting Lab, Provider Social History Tobacco [...] Info) Description 08/25/2024 13:20 EST Office Visit [facility] Infectious Disease [address] [address] Benito Arora MD [address] [place] [phone] documented as of this encounter Procedures Procedure Name Priority Date/Time Associated Diagnosis Comments CHLAMYDIA/N. GONORRHOEAE AMPLIFIED NUCLEIC ACID Routine 10/25/2021 11:10 EST documented in this encounter Results * CHLAMYDIA/N. GONORRHOEAE AMPLIFIED RNA (10/25/2021 11:10 EST) Neisseria gonorrhoeae Result Negative Negative 10/28/2021 15:28 EST [facility] Chlamydia trachomatis Result Negative Negative 10/28/2021 15:28 EST [facility] Urine URINE / Unknown 10/25/2021 1 1:10 EST 10/25/2021 21:30 EST Provider Outr Resulting Lab MICROBIOLOGY - GENERAL ORDERABLES [facility] [address] [place] [address] documented in this encounter Visit Diagnoses Not on filedocumented in this encounter Care Teams English Division Chair Relationship Specialty Start Date End Date Anthony Tobias MD PCP - General 03/29/10 02/17/23 Quynh Louie MD [address] [place] [phone] PCP - General 02/18/23 Sancho Hampotn PMP CERTIFIED PROJECT MANAGER Linen Room Attendant Infectious Disease 03/31/23 documented as of this encounter
--- OUTSIDE RECORDS SUMMARY | 2024-05-23 19:48 | XMS_ITS | Encounter Summary ---
Author Organization [facility] Address [address] [place] [address] Care Team Providers Care Melter Supervisor Open Hearth Furnace Name Role Phone Anthony Tobias MD Primary Care Provider Quynh Martinez MD Primary Care Provider [phone] Sancho Hampton Unavailable Unavailable Encounter Details Date Type Department Care Team (Late st Contact Info) Description 02/10/2023 Lab Requisition [facility] Pathology & Laboratory Medicine - [address] [address] Outr Resulting Lab, Provider Social History Tobacco [...] Info) Description 08/25/2024 13:20 EST [facility] [address] [address] Benito Arora MD [address] [place] [phone] documented as of this encounter Procedures Procedure Name Priority Date/Time Associated Diagnosis Comments HIV 1 AND 2 AB CONFIRMATION/DIFFERE NTIATION Today 02/09/2023 12:12 EDT HIV 1/2 ANTIGEN AND ANTIBODY, 4TH GENERATION Routine 02/09/2023 12:12 EDT documented in this encounter Results * (ABNORMAL) HIV 1 AND 2 AB CONFIRMATION/DIFFERENTIATION (02/09/2023 12:12 EDT) HIV-1 Antibody Confirm Positive(A) Negative 02/11/2023 13:17 EDT [facility] HIV-1 Band(s) gp160 (HIV-1 Env) p24 (HIV-1 GAG) gp41 (HIV-1 Env) 02/11/2023 13:17 EDT [facility] Comment:Presence of HIV-1 an tibodies is confirmed. HIV-2 Antibody Confirm Negative Negative 02/11/2023 13:17 EDT [facility] Comment:A negative result do es not rule out HIV infection. Submit plasma specimens for HIV-1 RNA detection test and/or HIV-2 DNA/RNA test based on patient's clinical and epidemiologic exposure history. HIV-2 Band(s) No Bands Detected 02/11/2023 13:17 EDT [facility] Blood VENOUS BLOOD / Unknown 02/09/2023 12:12 EDT 02/10/2023 17:27 EDT Provider Outr Resulting Lab CHEMISTRY & BLOOD GAS ORDERABLES [facility] [address] [place] [address] * (ABNORMAL) HIV 1/2 ANTIGEN AND ANTIBODY, 4TH GENERATION (02/09/2023 12:12 EDT) HIV 1 and 2 Antibody/p24 Antigen, 4th Generation Reactive( A) Negative 02/11/2023 12:50 EDT [facility] Comment:Reactive for Anti-HI V1 and/or Anti-HIV2. Refer to HIV 1 and 2 Ab Differentiation for final result and interpretation. HIV antibody result should be interpreted in the context of the patient's total clinical and laboratory information. Blood VENOUS BLOOD / Unknown 02/09/2023 12:12 EDT 02/10/2023 17:27 EDT Narrative [facility] - 02/11/2023 12:50 EDT Fourth Generation assay performed on the Siemens Centaur XPT. Provider Outr Resulting Lab IMMUNOLOGY A ND SEROLOGY ORDERABLES [facility] [address] [place] [address] documented in this encounter Visit Diagnoses Not on filedocumented in this encounter Care Teams Melter Supervisor Open Hearth Furnace Relationship Specialty Start Date End Date Anthony Tobias MD PCP - General 03/29/10 02/17/23 Quynh Louie MD [address] [place] [phone] PCP - General 02/18/23 Sancho Hampton LICSW Model And Mold Maker Plaster Infectious Disease 03/31/23 documented as of this encounter
--- OUTSIDE RECORDS SUMMARY | 2024-05-23 19:48 | XMS_ITS | Encounter Summary ---
Author Organization [facility] Address [address] [place] [address] Care Team Providers Care Supervisor Powder And Primer Canning Name Role Phone Anthony Tobias MD Primary Care Provider Quynh Martinez MD Primary Care Provider [phone] Sancho Hampton Unavailable Unavailable Encounter Details Date Type Department Care Team (Late st Contact Info) Description 01/22/2022 Lab Requisition [facility] Pathology & Laboratory Medicine - [address] [address] Outr Resulting Lab, Provider Social History Tobacco [...] Office Visit [facility] Infectious Disease [address] [address] Benito Arora MD [address] [place] [phone] documented as of this encounter Procedures Procedure Name Priority Date/Time Associated Diagnosis Comments SYPHILIS SEROLOGY Routine 01/21/2022 11: 05 EDT HEPATITIS C AB W REFLEX TO HCV RNA BY PCR Routine 01/21/2022 11:05 EDT documented in this encounter Results * SYPHILIS SEROLOGY (01/21/2022 11:05 EDT) Syphilis Serology Negative Negative 01/23/2022 11:31 EDT [facility] Blood VENOUS BLOOD / Unknown 01/21/2022 11:05 EDT 01/22/2022 16:50 EDT Provider Outr Resulting Lab IMMUNOLOGY A ND SEROLOGY ORDERABLES Performing Organization Address City/[facility]/ZIP Co de Phone Number [facility] [address] [place] [address] * HEPATITIS C AB W REFLEX TO HCV RNA BY PCR (01/21/2022 11:05 EDT) Hep C Antibody Negative Negative 01/23/2022 9:42 EDT [facility] Blood VENOUS BLOOD / Unknown 01/21/2022 11:05 EDT 01/22/2022 16:50 EDT Provider Outr Resulting Lab CHEMISTRY & BLOOD GAS ORDERABLES Performing Organization Address City/[facility]/ZIP Co de Phone Number [facility] [address] [place] [address] documented in this encounter Visit Diagnoses Not on filedocumented in this encounter Care Teams Supervisor Powder And Primer Canning Relationship Specialty Start Date End Date Anthony Tobias MD PCP - General 03/29/10 02/17/23 Quynh Louie MD [address] [place] [phone] PCP - General 02/18/23 Sancho Hampton, [facility] Chief Executive Or Managing Director Infectious Disease 03/31/23 documented as of this encounter
--- OUTSIDE RECORDS SUMMARY | 2024-05-23 19:48 | XMS_ITS | Encounter Summary ---
Author Organization [facility] Address [address] [place] [address] Care Team Providers Care Multiple Tube Winding Machine Operator Name Role Phone Anthony Tobias MD Primary Care Provider Quynh Martinez MD Primary Care Provider [phone] Sancho Hampton Unavailable Unavailable Encounter Details Date Type Department Care Team (Late st Contact Info) Description 01/18/2021 Lab Requisition [facility] Pathology & Laboratory Medicine - [address] [address] Outr Resulting Lab, Provider Social History Tobacco [...] [facility] Infectious Disease [address] [address] Benito Arora MD [address] [place] [phone] documented as of this encounter Procedures Procedure Name Priority Date/Time Associated Diagnosis Comments HIV 1/2 ANTIGEN AND ANTIBODY, 4TH GENERATION Routine 01/18/2021 11:19 EDT documented in this encounter Results * HIV 1/2 ANTIGEN AND ANTIBODY, 4TH GENERATION (01/18/2021 11:19 EDT) HIV 1 and 2 Antibody/p24 Antigen, 4th Generation Negative Negative 01/21/2021 11:00 EDT [facility] Comment: If acute HIV-1 infection is suspected in a high risk ??patient, submit plasma specimen for HIV-1 RNA quantitation test. Fourth Generation assay performed on the Siemens Centaur. Blood VENOUS BLOOD / Unknown 01/18/2021 11:19 EDT 01/18/2021 20:49 EDT Provider Outr Resulting Lab IMMUNOLOGY A ND SEROLOGY ORDERABLES [facility] [address] [place] [address] documented in this encounter Visit Diagnoses Not on filedocumented in this encounter Care Teams Multiple Tube Winding Machine Operator Relationship Specialty Start Date End Date Anthony Tobias MD PCP - General 03/29/10 02/17/23 Quynh Louie MD [address] [place] [phone] PCP - General 02/18/23 Sancho Hampton LICSW Keg Filler Infectious Disease 03/31/23 documented as of this encounter
--- OUTSIDE RECORDS SUMMARY | 2024-05-23 19:48 | XMS_ITS | Encounter Summary ---
Author Organization [facility] Address [address] [place] [address] Care Team Providers Care Concreter Name Role Phone Anthony Tobais MD Primary Care Provider Quynh Martinez MD Primary Care Provider [phone] Sancho Hampton Unavailable Unavailable Encounter Details Date Type Department Care Team (Late st Contact Info) Description 01/22/2022 Lab Requisition [facility] Pathology & Laboratory Medicine - [address] [address] Outr Resulting Lab, Provider Social History Tobacco [...] Info) Description 08/25/2024 13:20 EST Office Visit [facility] Infectious Disease [address] [address] Benito Arora MD [address] [place] [phone] documented as of this encounter Procedures Procedure Name Priority Date/Time Associated Diagnosis Comments HIV 1/2 ANTIGEN AND ANTIBODY, 4TH GENERATION Routine 01/21/2022 11:05 EDT documented in this encounter Results * HIV 1/2 ANTIGEN AND ANTIBODY, 4TH GENERATION (01/21/2022 11:05 EDT) HIV 1 and 2 Antibody/p24 Antigen, 4th Generation Negative Negative 01/23/2022 10:05 EDT [facility] Comment:If acute HIV-1 infec tion is suspected in a high risk patient, submit plasma specimen for HIV-1 RNA quantitation test. Blood VENOUS BLOOD / Unknown 01/21/2022 11:05 EDT 01/22/2022 16:51 EDT Narrative [facility] - 01/23/2022 10:05 EDT Fourth Generation assay performed on the QuadROIaur XPT. Provider Outr Resulting Lab IMMUNOLOGY A ND SEROLOGY ORDERABLES [facility] [address] [place] [address] documented in this encounter Visit Diagnoses Not on filedocumented in this encounter Care Teams Concreter Relationship Specialty Start Date End Date Anthony Tobias MD PCP - General 03/29/10 02/17/23 Quynh Louie MD [address] [place] [phone] PCP - General 02/18/23 Sancho Hampton JACK OF ALL TRADES Dry Cleaner Presser Infectious Disease 03/31/23 documented as of this encounter
[2024-05-25 13:12] LABS: GC Result Negative (Negative)
[2024-05-25 14:37] LABS: Chlamydia Result Positive (Negative)
== END 2024-05-23 19:44 | disposition home or self-care (01) ==
LOC: NCHCN 19:43
PROVIDERS: PCP Family Medicine; Visit Provider Family Medicine
DX: B20 Human immunodeficiency virus [HIV] disease (principal)
CPT/HCPCS: 87491; 87591

== ENCOUNTER 2024-06-01 14:36 | Outpatient (CLI) | payer BC, SELFPAY ==
[2024-06-01 23:32] LABS: Hepatitis C Ab w Rflx HCV PCR Negative (Negative)
[2024-06-02 11:33] LABS: Syphilis Serology (RPR) Negative (Negative)
== END 2024-06-01 14:37 | disposition home or self-care (01) ==
LOC: LBO 14:39
PROVIDERS: PCP Family Medicine; Visit Provider Family Medicine
DX: B20 Human immunodeficiency virus [HIV] disease (principal)
CPT/HCPCS: 36415; 86803; 86592

== ENCOUNTER 2025-01-10 19:45 | Outpatient (REF) | payer BC, SELFPAY ==
[2025-01-12 10:46] LABS: Hepatitis C Ab w Rflx HCV PCR Negative (Negative)
[2025-01-12 11:18] LABS: Chlamydia Result Negative (Negative); GC Result Negative (Negative)
[2025-01-12 11:55] LABS: Syphilis Serology (RPR) Negative (Negative)
== END 2025-01-10 19:46 | disposition home or self-care (01) ==
LOC: NCHCN 19:45
PROVIDERS: PCP Family Medicine; Visit Provider Family Medicine
DX: B20 Human immunodeficiency virus [HIV] disease (principal)
CPT/HCPCS: 86803; 87491; 87591; 86592

== ENCOUNTER 2025-05-19 10:11 | Outpatient (REF) | payer BC, SELFPAY ==
[2025-05-22 11:19] LABS: Chlamydia Result Negative (Negative); GC Result Negative (Negative)
[2025-05-22 11:44] LABS: Syphilis Serology (RPR) Negative (Negative)
[2025-05-22 13:50] LABS: Hepatitis C Ab w Rflx HCV PCR Negative (Negative)
== END 2025-05-19 10:12 | disposition home or self-care (01) ==
LOC: NCHCN 10:11
PROVIDERS: PCP Family Medicine; Visit Provider Family Medicine
DX: Z00.00 Encounter for general adult medical examination without abnormal findings (principal)
CPT/HCPCS: 86803; 87491; 87591; 86592